=== PATIENT | female | born 1960 | race Caucasian/White ===

== ENCOUNTER 2020-10-16 10:32 | Inpatient (IN) | payer MEDICAID ==
[~2020-10-16] VITALS: Ht 195.6 cm; Wt 111.3 kg
[~2020-10-16 10:32] MED LIST: ACET1TAB12 PO; ALBU2.5V13 NEB; ALBU6.7H9 INH; CLON-527 PO; DOXE25CA3 PO; GABA300C PO; METF1000 PO; OMEP20CA4 PO; ONDA4TAB6 PO; SERT50TA PO
[2020-10-16] MEDS ORDERED: morphine 4 MG/ML inj SYRINge IV ONE (11:20)
[2020-10-16] MEDS ORDERED: normal saline 1000ML IV soln IVB ONE ×2 (11:25→16:40)
[2020-10-16 11:32] LABS: URINE HCG NEGATIVE (NEG)
[2020-10-16 11:34] LABS: CLARITY,URINE CLOUDY (Clear); COLOR,URINE YELLOW (Yellow); GLUCOSE, URINE NEGATIVE (Neg); KETONES,URINE NEGATIVE (Neg); LEUKOCYTE ESTERASE ,URINE TRACE (Neg); NITRITES, URINE NEGATIVE (Neg); OCCULT BLOOD,URINE MODERATE (Neg); PH,URINE 5.5 (4.8-8.0); PROTEIN,URINE 100 mg/dl (Neg); UROBILINOGEN,URINE 0.2 E.U/dL (0.2-1.0)
[2020-10-16 11:37] LABS: UA COLLECTION TYPE VOIDED
[2020-10-16 11:43] LABS: RBC,URINE 0-2 /HPF (0-2); SQUAMOUS EPITHELIAL CELL,UR MANY /LPF (FEW); WBC,URINE 50-100 /HPF (0-4)
[2020-10-16 11:45] LABS: AMORPHOUS URATES 3+; BACTERIA,URINE 1+ /HPF (Neg)
[2020-10-16] MEDS ORDERED: vancomycin/NS 1 GM ADD-VANTAGE 250 ML IV ONE (11:45)
[2020-10-16] MEDS ORDERED: piperacillin/tazo 3.375gm/50ml 50 ML IV ONE (11:45)
--- NOTE | 2020-10-16 12:23 | NUR ---
GABI GOVEA AWARE THAT LAB UNABLE TO DRAW BLOOD AND AND I ATTEMPTED ONE IV START. PATIETN HAS HX OF IVDA AND MULTIPLE SCABBED AND REDDENED AREAS ON ARMS MAINLY AND BODY, HEAD AND BACK IN VARIOUS STAGES OF HEALING. GABI STATED IS IT OK TO HANG ANTIBIOTICS BEFORE BLOOD CULTURES DRAWN. CULTURES WERE DRAWN AT [facility]. PATIENT HAS RIGHT WRIST 22 [facility]
--- NOTE | 2020-10-16 12:39 | NUR ---
SPOKE TO PICC RN, SHE WILL COME AND PLACE A MIDLINE AT THIS TIME
--- NOTE | 2020-10-16 13:11 | NUR ---
CLEANED COPIOUS AMOUNT OF BLOODY APPARENT STOOL FROM ABDOMEN AND UNDERWEAR SOAKED. CLEANED SKIN AROUND STOMA WHICH IS NOW DEEP RED AND PROTRUDING AND STICKING OUT ABOUT 5 CM, HOLE NEAR STOMA LEAKING BLOODY LIQUID, CLEANED ALSO WITH NS, STOMAPASTE APPLIED AROUND BOTH "HOLES" AND OSTOMY BAGS PLACED TO BOTH "HOLES", NO OUTPUT FROM ILEOSTOMY. AREA UNDER STOMA AND HOLE IS EXCORITAED WITH VAIOUS OPEN AREAS, NON STICK APPLIED AND GAUZE ACCROSS MAJORITY OF UPPER BACK IS REDENED AND SWOLLEN AND HARD FEELING WITH ONE VERY LARGE OPEN AREA AND ANOTHER OPEN AREA, XEROFORM APPLIED, NON STICK AND 4 X 4 GAUZE
--- NOTE | 2020-10-16 13:48 | NUR ---
PICC RN PLACING MIDLINE IN ROOM
[2020-10-16 16:06] LABS: BASOPHILS % (AUTO) 0.1 % (0-1); EOSINOPHILS % (AUTO) 0.1 % (0-6); HEMATOCRIT 34.6 % (35.0-45.0); HEMOGLOBIN 11.6 g/dl (12.0-16.0); LYMPHOCYTES # (AUTO) 0.5 X10'3 (1.1-4.8); LYMPHOCYTES % (AUTO) 2.6 % (21-51); MEAN CORPUSCULAR HEMOGLOBIN 30.7 PG (27.0-31.0); MEAN CORPUSCULAR HGB CONC 33.5 g/dL (33.0-36.5); MEAN CORPUSCULAR VOLUME 91.6 FL (78-98); MEAN PLATELET VOLUME 6.5 FL (7.4-10.4); MONOCYTES % (AUTO) 5.2 % (2-12); NEUTROPHILS # (AUTO) 17.8 X10'3 (1.8-7.7); PLATELET COUNT 396 X10'3 (140-440); RED BLOOD COUNT 3.78 X10'6 (4.20-5.60); WHITE BLOOD COUNT 19.3 X10'3 (4.5-11.0)
[2020-10-16 16:26] LABS: ALANINE AMINOTRANSFERASE 20 U/L (12-78); ALBUMIN 1.7 G/DL (3.4-5.0); ALBUMIN/GLOBULIN RATIO 0.3 (1.1-1.5); ALKALINE PHOSPHATASE 167 IU/L (46-116); ANION GAP 21 (8-16); ASPARTATE AMINO TRANSFERASE 37 U/L (10-37); BLOOD UREA NITROGEN 105 MG/DL (7-18); CALCIUM 7.4 MG/DL (8.5-10.1); CHLORIDE 96 MMOL/L (99-107); CREATININE 6.16 MG/DL (0.40-0.90); GLUCOSE 190 MG/DL (70-104); POTASSIUM 4.1 MMOL/L (3.5-5.1); SODIUM 134 MMOL/L (135-145); TOTAL CARBON DIOXIDE 16.6 MMOL/L (24-32); TOTAL PROTEIN 7.5 G/DL (6.4-8.2); eGFR 7 ML/MIN
[2020-10-16] MEDS ORDERED: LIDOcaine 1% W/epiNEPHrine 1:200,000 10ml vial IJ ONE (16:40)
[2020-10-16] MEDS ORDERED: TETanus/Pertussis (Acell)/Diphther VAC/PF (Tdap-Adult) 0.5ml syringe IMVAC ONE (16:40)
--- NOTE | 2020-10-16 16:41 | NUR ---
MACIEL MARTIN [phone] SON UPDATED WITH PATIENT'S PERMISSION
[2020-10-16 17:09] LABS: PLATELET ESTIMATE NORMAL; TOTAL CELLS COUNTED 100
[2020-10-16] MEDS ORDERED: ALBU8HFA PO (17:39)
[2020-10-16] MEDS ORDERED: LORA-268 PO (17:39)
[2020-10-16] MEDS ORDERED: METF-436 PO (17:39)
--- NOTE | 2020-10-16 17:45 | NUR ---
ABSCESSES ON MID/LEFT UPPER BACK DRAINED PER XUAN ASHLEY. TOLERATED PROCEDURE WELL. COPIOUS AMOUNTS OF CREAMY, PUS AND SEROSANGUINOUS DRAINAGE OBTAINED FROM ABSCESSES. CULTURE SENT TO LAB. WOUNDS PACKED WITH IODOFORM GAUZE AND COVERED WITH 4X4 DRESSINGS. TETANUS SHOT GIVEN TO PATIENT. WOUND ON RIGHT BREAST ASSESSED PER NURSE AND GABI GOVEA. WOUND IS CRUSTY AND WITH DARK SCAB AND SCANT AMOUNT OF PURULENT DRAINAGE FROM MIDDLE OF WOUND. LEFT OPEN TO AIR AT THIS TIME.
[2020-10-16] MEDS ORDERED: acetaminophen 325mg tablet PO PRN (18:10)
[2020-10-16] MEDS ORDERED: insulin Lispro (HumaLOG) vial - multi-dose SQ SCH (18:10)
[2020-10-16] MEDS ORDERED: mag hydrox/Alum hydrox/simeth 30ml oral suspension PO PRN (18:10)
[2020-10-16] MEDS ORDERED: docusate sod 100mg capsule PO PRN (18:10)
[2020-10-16] MEDS ORDERED: HYDROcodone/acetaminophen 5mg/325mg tablet PO PRN (18:10)
[2020-10-16] MEDS ORDERED: potassium Cl 20 mEq SR tablet PO PRN ×2 (18:10)
[2020-10-16] MEDS ORDERED: glucagon, human recombinant 1mg kit SUBCUT PRN (18:10)
[2020-10-16] MEDS ORDERED: magnesium 4gm in 100ml NS 100 ML IV PRN (18:10)
[2020-10-16] MEDS ORDERED: magnesium 2GM in 50ml NS 50 ML IV PRN (18:10)
[2020-10-16] MEDS ORDERED: ondansetron/PF 4mg/2ml inj IV PRN (18:10)
[2020-10-16] MEDS ORDERED: dextrose 50%-water 50ml dispensing syringe IV PRN (18:10)
[2020-10-16] MEDS ORDERED: dextrose ORAL solution 15 GM/59 ML bottle PO PRN ×2 (18:10)
[2020-10-16] MEDS ORDERED: MESSAGE TO PHARMACY PO ONE (18:10)
[2020-10-16] MEDS ORDERED: normal saline 1000ml 1,000 ML IV SCH (18:10)
[2020-10-16] MEDS ORDERED: potassium Cl 40MEQ/1/2NS 520ml 520 ML IV PRN (18:10)
[2020-10-16] MEDS ORDERED: ondansetron 4mg rapidly disintigrating tab PO PRN (18:25)
[2020-10-16 19:51] LABS: HEMOGLOBIN A1C 8.2 % (4.5-6.2)
[2020-10-16] MEDS: heparin, porcine 5000 units/ml vial SQ SCH (20:00)
[2020-10-16] MEDS: K and/or MAG REPLACEMENT MC SCH (20:00)
[2020-10-16] MEDS: levoFLOXACIN-Levaquin 250mg/D5 50 ML IV SCH (20:25)
[2020-10-16] MEDS: metroNIDAZOLE-Flagyl 250mg/NS 50 ML IV SCH (20:25)
--- NOTE | 2020-10-16 20:35 | NUR ---
called pharmacy for bicarb gtt
[2020-10-16] MEDS: sodium bicarbonate (8.4%) inj. 100 MEQ in dextrose 5%-water 1,000 ML IV SCH (20:48)
[2020-10-16] MEDS: insulin glargine (Lantus) pen - multi-dose SQ SCH (21:00)
--- NOTE | 2020-10-16 21:14 | NUR ---
PHONE REOPRT TO ANTONINO RN PCU PATIENT TO GO TO 2011A WITH RN ON MONITOR.
--- NOTE | 2020-10-16 21:19 | NUR ---
LANE MUÑIZ AWARE THAT ACCUCHECK NEEDS TO BE DONE. LANE MUÑIZ AWARE THAT WOUND PHOTOS NEED TO BE TAKEN. PATIETN TO PCU WITH ANALISA SHERMAN PATIENT WITH BICARB GTT AT 150 ML/HR TO RIGHT QUAD LUMEN CENTRAL LINE IJ. SL TO RIGHT WRIST ILEOSTOMY BAG WITH NO OUTPUT, HOLE MEDIAL TO ILEOSTOMY OUTPUT OF BLOODY LIQUID STOOL, PATIETN GETS UP TO BSC WITH STANDYBY ASSIST
[2020-10-17 02:00] VITALS: BP 91/42
[2020-10-17] MEDS: sodium bicarbonate (8.4%) inj. 100 MEQ in dextrose 5%-water 1,000 ML IV SCH ×2 (03:44→12:19)
--- NOTE | 2020-10-17 05:51 | NUR ---
REC'D CALL FROM [facility], THEY HAVE POSITIVE BLOOD CULTURE RESULTS OF GRAM + COCCI IN CLUSTER IN ANEROBIC BOTTLE X 2 SETS. MD TA INFORMED Addendum: 10/17/20 at 0555 by Sonia Caldera RN CORRECTION. AEROBIC BOTTLE
--- NOTE | 2020-10-17 06:30 | NUR ---
Patient in room PCU 3011. I have received report from Portillo SHERMAN and had the opportunity to ask questions and assume patient care.
[2020-10-17] MEDS: K and/or MAG REPLACEMENT MC SCH ×2 (08:00→20:00)
[2020-10-17 08:49] LABS: BASOPHILS % (AUTO) 0.1 % (0-1); EOSINOPHILS # (AUTO) 0.1 X10'3 (0-0.9); EOSINOPHILS % (AUTO) 0.4 % (0-6); HEMATOCRIT 30.8 % (35.0-45.0); HEMOGLOBIN 10.5 g/dl (12.0-16.0); LYMPHOCYTES # (AUTO) 0.8 X10'3 (1.1-4.8); LYMPHOCYTES % (AUTO) 4.9 % (21-51); MEAN CORPUSCULAR HEMOGLOBIN 30.9 PG (27.0-31.0); MEAN CORPUSCULAR HGB CONC 34.2 g/dL (33.0-36.5); MEAN CORPUSCULAR VOLUME 90.4 FL (78-98); MEAN PLATELET VOLUME 6.5 FL (7.4-10.4); MONOCYTES # (AUTO) 1.1 X10'3 (0-0.9); MONOCYTES % (AUTO) 6.1 % (2-12); NEUTROPHILS # (AUTO) 15.4 X10'3 (1.8-7.7); NEUTROPHILS % (AUTO) 88.5 % (42-75); PLATELET COUNT 359 X10'3 (140-440); RED BLOOD COUNT 3.41 X10'6 (4.20-5.60); RED CELL DISTRIBUTION WIDTH 15.9 % (11.5-14.5); WHITE BLOOD COUNT 17.3 X10'3 (4.5-11.0)
[2020-10-17] MEDS: metroNIDAZOLE-Flagyl 250mg/NS 50 ML IV SCH ×3 (08:51→23:48)
[2020-10-17] MEDS: heparin, porcine 5000 units/ml vial SQ SCH ×2 (08:51→20:43)
--- NOTE | 2020-10-17 09:15 | NUR ---
Received critical from micro... Positive blood cultures taken on 10/16, grew positive cocci in clusters from IV start at 17.76 hours in an aerobic bottle. LANE Nath notified.
--- NOTE | 2020-10-17 09:27 | NUR ---
PAGER ID: [phone] MESSAGE: re pt Ted, room 3011, U, lEisa SHERMAN, critical lab blood CX positive , COCCI, in cluster. Aerobic 17.7 hrs. she is on Flagyl. Also, the pt was confused this morning new onset.
--- NOTE | 2020-10-17 09:32 | NUR ---
Dr Mitchell returned page and critical lab noted. AMS also noted. No NO new orders received.
[2020-10-17 09:44] VITALS: BP 107/47
[2020-10-17 09:44] LABS: ALANINE AMINOTRANSFERASE 19 U/L (12-78); ALBUMIN 1.5 G/DL (3.4-5.0); ALBUMIN/GLOBULIN RATIO 0.3 (1.1-1.5); ANION GAP 16 (8-16); ASPARTATE AMINO TRANSFERASE 30 U/L (10-37); BILIRUBIN,TOTAL 0.8 MG/DL (0.1-1.0); BLOOD UREA NITROGEN 102 MG/DL (7-18); CALCIUM 6.6 MG/DL (8.5-10.1); CHLORIDE 92 MMOL/L (99-107); GLUCOSE 213 MG/DL (70-104); MAGNESIUM 1.7 MG/DL (1.5-2.4); POTASSIUM 3.9 MMOL/L (3.5-5.1); SODIUM 126 MMOL/L (135-145); TOTAL CARBON DIOXIDE 18.4 MMOL/L (24-32); TOTAL PROTEIN 6.9 G/DL (6.4-8.2)
[2020-10-17 09:46] LABS: PLATELET ESTIMATE NORMAL; TOTAL CELLS COUNTED 100
[2020-10-17 09:48] LABS: BUN/CREATININE RATIO 17.5 (6.6-38.0); CREATININE 5.83 MG/DL (0.40-0.90); eGFR 7 ML/MIN
[2020-10-17 11:16] LABS: ALKALINE PHOSPHATASE 151 IU/L (46-116)
[2020-10-17] MEDS: linezolid 600mg tablet PO SCH ×2 (12:19→20:43)
--- NOTE | 2020-10-17 12:28 | NUR ---
Attepted in ED 10/16/20 to establish IV access to Right arm using shayleetasopierce cobb. Ilene SHERMAN notified. Addendum: 10/17/20 at 1231 by Yokasta Weeks RN *Attempted without success.
--- NOTE | 2020-10-17 12:50 | NUR ---
RN informs Dr Hanks about Pt Sodium was 126 and Pt still on D5 with bicarb at 150 ml/hr. orders d5 with 3 amps of bicarb at 150 ml/hr and order for neal catheter. RN mentioned dr Enrique instructions for no Neal. Dr Mccormick makes note of that, and still wants Neal with UA.
[2020-10-17 13:18] VITALS: BP 97/49
--- NOTE | 2020-10-17 14:56 | NUR ---
Pt with A1c 8.2%, multiple attempted visits with pt at bedside however pt unavailable. Written DM education with RD contact information left at bedside. Noted pt with Metformin on home med list however per H&P pt has not been to a doctor in years and has not take any DM medications. BG 190 mg/dL on admit. Will attempt f/u visit with pt at another time for verbal DM education. 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 Per ecommerce marketing manager note acute renal failure/GLENROY probably due to prerenal azotemia from copious ileostomy output. No documentation of stool output since admit. Per WOC note pt with full thickness abscess L upper back and traumatic injury R breast, partial thickness traumatic injury to forehead, and IAD to pannus. Pt on a heart healthy CHO controlled diet, documented with 100% PO intake first meal. No nutrition intervention implemented at this time. Will continue to follow. Recommendations: 1) Continue heart healthy CHO controlled diet 2) Bowel care per rx 3) Scaled weight this admit; weekly scaled weights thereafter 4) F/u verbal DM education once stable Addendum: 10/17/20 at [address] Amended: Links added.
[2020-10-17 15:49] VITALS: BP 103/56
[2020-10-17] MEDS ORDERED: vancomycin/NS 1 GM ADD-VANTAGE 250 ML IV PRN (15:55)
[2020-10-17 16:11] LABS: SODIUM,URINE RANDOM < 15 MEQ/L; TOTAL PROTEIN,URINE RANDOM 131.8 MG/DL
[2020-10-17] MEDS: sodium bicarbonate (8.4%) inj. 150 MEQ in dextrose 5%-water 1,000 ML IV SCH (16:22)
[2020-10-17 16:27] LABS: CLARITY,URINE CLOUDY (Clear); COLOR,URINE YELLOW (Yellow); GLUCOSE, URINE NEGATIVE (Neg); KETONES,URINE NEGATIVE (Neg); PH,URINE 5.5 (4.8-8.0); PROTEIN,URINE 30 mg/dl (Neg); UA COLLECTION TYPE FOLEY CATH
[2020-10-17 16:28] LABS: LEUKOCYTE ESTERASE ,URINE SMALL (Neg); NITRITES, URINE NEGATIVE (Neg); OCCULT BLOOD,URINE SMALL (Neg); UROBILINOGEN,URINE 0.2 E.U/dL (0.2-1.0)
[2020-10-17 16:29] LABS: SQUAMOUS EPITHELIAL CELL,UR MANY /LPF (FEW); WBC,URINE 20-30 /HPF (0-4)
[2020-10-17 16:30] LABS: BACTERIA,URINE 2+ /HPF (Neg); RBC,URINE 0-2 /HPF (0-2)
[2020-10-17 16:31] LABS: CELLULAR CAST 0-4 /LPF (NEGATIVE)
[2020-10-17 16:52] LABS: UA EOSINOPHILS RARE EOS /HPF
[2020-10-17 18:00] VITALS: BP 120/56
[2020-10-17] MEDS: Dakins solution (1/4 strength) 473ml solution TP SCH (20:00)
[2020-10-17] MEDS: lactobacillus rhamnosus 10,000 MMU CELLS/CAPSULE PO SCH (20:42)
[2020-10-17] MEDS: diatr meglu/diatrizoate 30ml oral sol.-(3 dose) bottle PO SCH (20:43)
[2020-10-17] MEDS: insulin glargine (Lantus) pen - multi-dose SQ SCH (21:00)
[2020-10-17 22:00] VITALS: BP 91/53
[2020-10-17] MEDS: LORazepam 0.5 MG tablet PO PRN (23:49)
[2020-10-18 02:00] VITALS: BP 103/53
[2020-10-18] MEDS ORDERED: VANCOMYCIN LEVEL IV SCH (03:00)
[2020-10-18] MEDS: sodium bicarbonate (8.4%) inj. 150 MEQ in dextrose 5%-water 1,000 ML IV SCH (03:31)
[2020-10-18 06:00] VITALS: BP 118/57
--- NOTE | 2020-10-18 06:12 | NUR ---
Problems reprioritized. Patient report given, questions answered & plan of care reviewed with Matthew SHERMAN.
--- NOTE | 2020-10-18 06:15 | NUR ---
Patient in room PCU 3011. I have received report from Marianna SHERMAN and had the opportunity to ask questions and assume patient care.
--- NOTE | 2020-10-18 06:20 | NUR ---
Problems reprioritized. Patient report given, questions answered & plan of care reviewed with Wan SHERMAN.
[2020-10-18] MEDS: diatr meglu/diatrizoate 30ml oral sol.-(3 dose) bottle PO SCH ×2 (07:00→10:30)
[2020-10-18 07:26] LABS: BASOPHILS % (AUTO) 0.1 % (0-1); EOSINOPHILS # (AUTO) 0.1 X10'3 (0-0.9); EOSINOPHILS % (AUTO) 0.9 % (0-6); HEMATOCRIT 27.8 % (35.0-45.0); HEMOGLOBIN 9.5 g/dl (12.0-16.0); LYMPHOCYTES # (AUTO) 0.9 X10'3 (1.1-4.8); LYMPHOCYTES % (AUTO) 7.7 % (21-51); MEAN CORPUSCULAR HEMOGLOBIN 30.6 PG (27.0-31.0); MEAN CORPUSCULAR HGB CONC 34.1 g/dL (33.0-36.5); MEAN CORPUSCULAR VOLUME 89.9 FL (78-98); MEAN PLATELET VOLUME 6.3 FL (7.4-10.4); MONOCYTES # (AUTO) 0.7 X10'3 (0-0.9); MONOCYTES % (AUTO) 6.4 % (2-12); NEUTROPHILS # (AUTO) 9.9 X10'3 (1.8-7.7); NEUTROPHILS % (AUTO) 84.9 % (42-75); PLATELET COUNT 282 X10'3 (140-440); RED BLOOD COUNT 3.09 X10'6 (4.20-5.60); RED CELL DISTRIBUTION WIDTH 15.6 % (11.5-14.5); WHITE BLOOD COUNT 11.6 X10'3 (4.5-11.0)
[2020-10-18] MEDS: levoFLOXACIN-Levaquin 250mg/D5 50 ML IV SCH (07:33)
[2020-10-18] MEDS: heparin, porcine 5000 units/ml vial SQ SCH ×2 (07:37→20:02)
[2020-10-18] MEDS: Dakins solution (1/4 strength) 473ml solution TP SCH ×2 (08:00→20:02)
[2020-10-18] MEDS: K and/or MAG REPLACEMENT MC SCH ×2 (08:00→19:56)
[2020-10-18 08:19] LABS: ALANINE AMINOTRANSFERASE 15 U/L (12-78); ALBUMIN 1.3 G/DL (3.4-5.0); ALBUMIN/GLOBULIN RATIO 0.3 (1.1-1.5); ALKALINE PHOSPHATASE 111 IU/L (46-116); ANION GAP 14 (8-16); ASPARTATE AMINO TRANSFERASE 20 U/L (10-37); BILIRUBIN,TOTAL 0.5 MG/DL (0.1-1.0); BLOOD UREA NITROGEN 90 MG/DL (7-18); BUN/CREATININE RATIO 20.5 (6.6-38.0); CHLORIDE 88 MMOL/L (99-107); CREATININE 4.38 MG/DL (0.40-0.90); GLUCOSE 189 MG/DL (70-104); MAGNESIUM 1.7 MG/DL (1.5-2.4); SODIUM 129 MMOL/L (135-145); TOTAL CARBON DIOXIDE 27.1 MMOL/L (24-32); TOTAL PROTEIN 6.2 G/DL (6.4-8.2); VANCOMYCIN,RANDOM 10.5 UG/ML; eGFR 10 ML/MIN
[2020-10-18 08:26] LABS: POTASSIUM 2.7 MMOL/L (3.5-5.1)
[2020-10-18] MEDS: metoclopramide 5 mg/ml inj IV PRN ×2 (09:15→19:53)
[2020-10-18] MEDS: metroNIDAZOLE-Flagyl 250mg/NS 50 ML IV SCH ×2 (09:16→16:14)
[2020-10-18] MEDS: morphine 2 MG/ML inj. syringe IV PRN (09:16)
[2020-10-18] MEDS: normal saline 1000ml 1,000 ML IV SCH ×3 (09:53→23:00)
[2020-10-18] MEDS: potassium Cl 40MEQ/1/2NS 520ml 520 ML IV PRN (10:08)
[2020-10-18 11:00] VITALS: BP 116/66
[2020-10-18 11:03] LABS: TOTAL CELLS COUNTED 100
[2020-10-18 11:04] LABS: PLATELET ESTIMATE NORMAL; POLYCHROMASIA FEW
[2020-10-18 11:05] LABS: TOXIC GRANULATION 1+
[2020-10-18] MEDS: linezolid 600mg tablet PO SCH ×2 (11:23→20:01)
[2020-10-18] MEDS: lactobacillus rhamnosus 10,000 MMU CELLS/CAPSULE PO SCH ×2 (11:23→20:01)
--- NOTE | 2020-10-18 12:23 | NUR ---
F/u: Physical assessment completed, pt documented as A/O x 1 and confused. Will defer f/u verbal DM education until pt more stable. Noted pt started on Zyvox, pt would benefit from low tyramine nutrition therapy education once stable. Will continue to follow closely. Addendum: 10/18/20 at [address] Amended: Links added.
[2020-10-18] MEDS: ondansetron/PF 4mg/2ml inj IV PRN ×2 (14:25→19:53)
[2020-10-18 15:00] VITALS: BP 100/55
[2020-10-18 18:00] VITALS: BP 95/55
[2020-10-18] MEDS ORDERED: potassium Cl 10 mEq/100mL bag IV ONE (19:15)
[2020-10-18] MEDS: insulin glargine (Lantus) pen - multi-dose SQ SCH (21:00)
[2020-10-18 22:00] VITALS: BP 127/71
[2020-10-19] MEDS: metroNIDAZOLE-Flagyl 250mg/NS 50 ML IV SCH (00:09)
[2020-10-19 02:00] VITALS: BP 121/67
[2020-10-19] MEDS: ondansetron/PF 4mg/2ml inj IV PRN (02:21)
[2020-10-19] MEDS: morphine 2 MG/ML inj. syringe IV PRN ×3 (03:02→23:22)
[2020-10-19 03:38] LABS: BASOPHILS % (AUTO) 0.4 % (0-1); EOSINOPHILS % (AUTO) 0.2 % (0-6); HEMATOCRIT 29.4 % (35.0-45.0); LYMPHOCYTES # (AUTO) 0.6 X10'3 (1.1-4.8); LYMPHOCYTES % (AUTO) 5.3 % (21-51); MEAN CORPUSCULAR HEMOGLOBIN 30.6 PG (27.0-31.0); MEAN CORPUSCULAR HGB CONC 34.1 g/dL (33.0-36.5); MEAN CORPUSCULAR VOLUME 89.7 FL (78-98); MEAN PLATELET VOLUME 6.2 FL (7.4-10.4); MONOCYTES # (AUTO) 0.9 X10'3 (0-0.9); MONOCYTES % (AUTO) 8.1 % (2-12); NEUTROPHILS # (AUTO) 9.8 X10'3 (1.8-7.7); PLATELET COUNT 301 X10'3 (140-440); RED BLOOD COUNT 3.28 X10'6 (4.20-5.60); RED CELL DISTRIBUTION WIDTH 15.7 % (11.5-14.5); WHITE BLOOD COUNT 11.4 X10'3 (4.5-11.0)
[2020-10-19 03:53] LABS: ALANINE AMINOTRANSFERASE 14 U/L (12-78); ALBUMIN 1.4 G/DL (3.4-5.0); ALBUMIN/GLOBULIN RATIO 0.3 (1.1-1.5); ALKALINE PHOSPHATASE 117 IU/L (46-116); ANION GAP 11 (8-16); ASPARTATE AMINO TRANSFERASE 16 U/L (10-37); BILIRUBIN,TOTAL 0.5 MG/DL (0.1-1.0); BLOOD UREA NITROGEN 73 MG/DL (7-18); BUN/CREATININE RATIO 23.5 (6.6-38.0); CALCIUM 6.2 MG/DL (8.5-10.1); CHLORIDE 95 MMOL/L (99-107); GLUCOSE 154 MG/DL (70-104); MAGNESIUM 1.6 MG/DL (1.5-2.4); POTASSIUM 3.4 MMOL/L (3.5-5.1); SODIUM 135 MMOL/L (135-145); TOTAL CARBON DIOXIDE 28.6 MMOL/L (24-32); TOTAL PROTEIN 6.5 G/DL (6.4-8.2); eGFR 15 ML/MIN
[2020-10-19] MEDS: normal saline 1000ml 1,000 ML IV SCH (05:40)
--- NOTE | 2020-10-19 06:05 | NUR ---
Patient in room PCU 3011. I have received report from Wan SHERMAN and had the opportunity to ask questions and assume patient care.
--- NOTE | 2020-10-19 06:22 | NUR ---
Patient in room PCU 3011. I have received report from LANE Pierce and had the opportunity to ask questions and assume patient care.
[2020-10-19 06:39] LABS: ANISOCYTOSIS 1+; PLATELET ESTIMATE NORMAL; TOTAL CELLS COUNTED 100
[2020-10-19 07:00] VITALS: BP 111/67
--- NOTE | 2020-10-19 07:02 | NUR ---
PAGER ID: [phone] MESSAGE: [phone] al Jean blood cultures positive for MRSA
[2020-10-19] MEDS: heparin, porcine 5000 units/ml vial SQ SCH ×2 (07:24→19:29)
[2020-10-19] MEDS: lactobacillus rhamnosus 10,000 MMU CELLS/CAPSULE PO SCH ×3 (07:24→19:35)
[2020-10-19] MEDS: Dakins solution (1/4 strength) 473ml solution TP SCH ×2 (08:00→19:29)
[2020-10-19] MEDS: K and/or MAG REPLACEMENT MC SCH ×2 (08:00→19:17)
[2020-10-19] MEDS: clindamycin 600mg/D5W 50ml 50 ML IV SCH ×3 (09:29→23:21)
[2020-10-19] MEDS: potassium Cl 40MEQ/1/2NS 520ml 520 ML IV PRN (09:32)
[2020-10-19 12:34] VITALS: BP 150/101
[2020-10-19 15:00] VITALS: BP 135/78
[2020-10-19 18:00] VITALS: BP 130/73
--- NOTE | 2020-10-19 18:00 | NUR ---
Orientee documentation: I have reviewed and agree with all interventions, assessments performed and documented by Elisa SHERMAN.
--- NOTE | 2020-10-19 18:00 | NUR ---
Patient in room PCU 3011. I have received report from anastasiia hunt and had the opportunity to ask questions and assume patient care.
--- NOTE | 2020-10-19 18:00 | NUR ---
Patient in room PCU 3011. I have received report from anastasiia hunt and had the opportunity to ask questions and assume patient care.
--- NOTE | 2020-10-19 18:05 | NUR ---
Problems reprioritized. Patient report given, questions answered & plan of care reviewed with Mj SHERMAN.
--- NOTE | 2020-10-19 19:17 | NUR ---
potassium replaced by previous shift
[2020-10-19] MEDS: insulin glargine (Lantus) pen - multi-dose SQ SCH (21:00)
[2020-10-19 22:00] VITALS: BP 132/76
--- NOTE | 2020-10-19 23:55 | NUR ---
performed wound care and neal care on pt.
--- NOTE | 2020-10-20 00:34 | NUR ---
pt was asleep when it was time to come and reassess them
--- NOTE | 2020-10-20 01:16 | NUR ---
no order in for urinary cath placed. according to the notes it was ordered by Dr. Hanks to monitor urine and to assess i/o. neal care was completed this evening. will pass onto day rn
[2020-10-20 01:43] VITALS: BP 142/75
--- NOTE | 2020-10-20 02:02 | NUR ---
called dr james to see if it rajan be possible to get something for anxiety for the pt iv. ordered ativan iv same dose at po
--- NOTE | 2020-10-20 02:25 | NUR ---
put in order for iv ativan, when I went in to see pt, pt was asleep. will keep med prn
[2020-10-20 02:44] LABS: BASOPHILS % (AUTO) 0.1 % (0-1); EOSINOPHILS % (AUTO) 0.3 % (0-6); HEMATOCRIT 29.5 % (35.0-45.0); HEMOGLOBIN 10.1 g/dl (12.0-16.0); LYMPHOCYTES # (AUTO) 0.8 X10'3 (1.1-4.8); MEAN CORPUSCULAR HEMOGLOBIN 30.7 PG (27.0-31.0); MEAN CORPUSCULAR HGB CONC 34.3 g/dL (33.0-36.5); MEAN CORPUSCULAR VOLUME 89.4 FL (78-98); MEAN PLATELET VOLUME 6.3 FL (7.4-10.4); MONOCYTES # (AUTO) 0.7 X10'3 (0-0.9); MONOCYTES % (AUTO) 7.7 % (2-12); NEUTROPHILS # (AUTO) 8.1 X10'3 (1.8-7.7); NEUTROPHILS % (AUTO) 83.9 % (42-75); PLATELET COUNT 275 X10'3 (140-440); RED CELL DISTRIBUTION WIDTH 15.7 % (11.5-14.5); WHITE BLOOD COUNT 9.6 X10'3 (4.5-11.0)
[2020-10-20 02:46] LABS: ALANINE AMINOTRANSFERASE 12 U/L (12-78); ALBUMIN 1.4 G/DL (3.4-5.0); ALBUMIN/GLOBULIN RATIO 0.3 (1.1-1.5); ALKALINE PHOSPHATASE 124 IU/L (46-116); ANION GAP 7 (8-16); ASPARTATE AMINO TRANSFERASE 14 U/L (10-37); BILIRUBIN,TOTAL 0.5 MG/DL (0.1-1.0); BLOOD UREA NITROGEN 58 MG/DL (7-18); BUN/CREATININE RATIO 26.4 (6.6-38.0); CALCIUM 6.4 MG/DL (8.5-10.1); CHLORIDE 95 MMOL/L (99-107); GLUCOSE 145 MG/DL (70-104); MAGNESIUM 1.5 MG/DL (1.5-2.4); SODIUM 137 MMOL/L (135-145); TOTAL CARBON DIOXIDE 34.9 MMOL/L (24-32); TOTAL PROTEIN 6.4 G/DL (6.4-8.2); eGFR 23 ML/MIN
[2020-10-20 02:52] LABS: POTASSIUM 2.9 MMOL/L (3.5-5.1)
[2020-10-20] MEDS ORDERED: potassium Cl 20 mEq SR tablet PO PRN (03:10)
[2020-10-20] MEDS ORDERED: potassium Cl 40MEQ/1/2NS 520ml 520 ML IV PRN (03:10)
[2020-10-20 03:37] LABS: TOTAL CELLS COUNTED 100
[2020-10-20 03:38] LABS: ANISOCYTOSIS 1+; PLATELET ESTIMATE NORMAL
--- NOTE | 2020-10-20 06:19 | NUR ---
Problems reprioritized. Patient report given, questions answered & plan of care reviewed with Joyce SHERMAN.
--- NOTE | 2020-10-20 06:30 | NUR ---
Report received from Mj SHERMAN
[2020-10-20 07:00] VITALS: BP 152/81
[2020-10-20] MEDS: lactobacillus rhamnosus 10,000 MMU CELLS/CAPSULE PO SCH ×2 (08:00→20:00)
[2020-10-20] MEDS: K and/or MAG REPLACEMENT MC SCH ×2 (08:00→20:00)
[2020-10-20] MEDS ORDERED: K and/or MAG REPLACEMENT MC SCH (08:00)
[2020-10-20] MEDS: heparin, porcine 5000 units/ml vial SQ SCH ×2 (08:05→20:00)
--- NOTE | 2020-10-20 09:54 | NUR ---
Reassessment: Pt remains A/O x 1 and confused per physical assessment. Educations remain deferred at this time. Noted that pt no longer receiving Zyvox. Pt continues with active diet order however documented by RN to be NPO. Pt with N/V 10/18 resulting in NG tube placement, documented with 1150 mL output from NG tube 10/19 per I&O. LBM 10/19. Will continue to follow closely and make recommendations as appropriate. Recommendations: 1) Advance to heart healthy CHO controlled diet as medically indicated 2) Bowel care per rx 3) Scaled weight this admit; weekly scaled weights thereafter 4) F/u verbal DM education and protein education once stable Addendum: 10/20/20 at [address] Amended: Links added.
[2020-10-20] MEDS: clindamycin 600mg/D5W 50ml 50 ML IV SCH ×2 (10:34→17:38)
[2020-10-20] MEDS: Dakins solution (1/4 strength) 473ml solution TP SCH ×2 (10:36→20:00)
[2020-10-20 11:00] VITALS: BP 152/89
--- NOTE | 2020-10-20 14:16 | NUR ---
Changed ostomy bag on patient. Output 160cc liquid in ostomy bag and 50cc in fistula bag - liquid with some formed stool present. Dressing changed on left upper back as per protocol.
[2020-10-20 15:00] VITALS: BP 158/87
--- NOTE | 2020-10-20 17:13 | NUR ---
PAGER ID: [phone] MESSAGE: [phone] al Jean. NG still clamped, tolerating liquids well, no N/V or ab pain. Good output in ileostomy still. - Joyce
[2020-10-20] MEDS: normal saline 1000ml 1,000 ML IV SCH (17:38)
--- NOTE | 2020-10-20 17:44 | NUR ---
PAGER ID: [phone] MESSAGE: [phone] Ted- Good output ileostomy bag. No c/o nausea. Take out NG? Fátima SHERMAN [phone]
[2020-10-20 18:00] VITALS: BP 130/97
--- NOTE | 2020-10-20 18:17 | NUR ---
Patient in room PCU 3011. I have received report from Joyce SHERMAN and Fátima SHERMAN and had the opportunity to ask questions and assume patient care.
[2020-10-20] MEDS: insulin glargine (Lantus) pen - multi-dose SQ SCH (21:00)
[2020-10-20 22:00] VITALS: BP 152/76
[2020-10-20] MEDS: LORazepam 2 mg/ml vial IV PRN (23:14)
[2020-10-21] MEDS: normal saline 1000ml 1,000 ML IV SCH ×2 (00:05→13:25)
[2020-10-21] MEDS: HYDROcodone/acetaminophen 10/325mg tab PO PRN (01:56)
[2020-10-21 02:00] VITALS: BP 152/75
[2020-10-21] MEDS: clindamycin 600mg/D5W 50ml 50 ML IV SCH ×3 (02:07→15:25)
--- NOTE | 2020-10-21 06:22 | NUR ---
Patient in room PCU 3011. I have received report from Jane SHERMAN and had the opportunity to ask questions and assume patient care.
[2020-10-21 07:00] VITALS: BP 141/66
--- NOTE | 2020-10-21 07:00 | NUR ---
Patient in room PCU 3011. I have received report from Jane SHERMAN and had the opportunity to ask questions and assume patient care.
--- NOTE | 2020-10-21 07:57 | NUR ---
Problems reprioritized. Patient report given, questions answered & plan of care reviewed with Bárbara SHERMAN.
[2020-10-21] MEDS: K and/or MAG REPLACEMENT MC SCH ×2 (08:00→20:00)
[2020-10-21] MEDS: heparin, porcine 5000 units/ml vial SQ SCH ×2 (08:49→15:00)
[2020-10-21] MEDS: Dakins solution (1/4 strength) 473ml solution TP SCH ×2 (08:49→20:00)
[2020-10-21] MEDS: lactobacillus rhamnosus 10,000 MMU CELLS/CAPSULE PO SCH ×2 (08:49→20:00)
[2020-10-21 10:07] LABS: BASOPHILS % (AUTO) 0.1 % (0-1); EOSINOPHILS % (AUTO) 0.3 % (0-6); HEMATOCRIT 32.9 % (35.0-45.0); HEMOGLOBIN 11.2 g/dl (12.0-16.0); LYMPHOCYTES # (AUTO) 0.9 X10'3 (1.1-4.8); LYMPHOCYTES % (AUTO) 8.2 % (21-51); MEAN CORPUSCULAR HEMOGLOBIN 30.5 PG (27.0-31.0); MEAN CORPUSCULAR HGB CONC 34.1 g/dL (33.0-36.5); MEAN CORPUSCULAR VOLUME 89.7 FL (78-98); MEAN PLATELET VOLUME 6.4 FL (7.4-10.4); MONOCYTES # (AUTO) 0.8 X10'3 (0-0.9); MONOCYTES % (AUTO) 6.8 % (2-12); NEUTROPHILS # (AUTO) 9.6 X10'3 (1.8-7.7); NEUTROPHILS % (AUTO) 84.6 % (42-75); PLATELET COUNT 251 X10'3 (140-440); RED BLOOD COUNT 3.66 X10'6 (4.20-5.60); RED CELL DISTRIBUTION WIDTH 15.7 % (11.5-14.5); WHITE BLOOD COUNT 11.4 X10'3 (4.5-11.0)
[2020-10-21 10:22] LABS: ALANINE AMINOTRANSFERASE 11 U/L (12-78); ALBUMIN 1.6 G/DL (3.4-5.0); ALBUMIN/GLOBULIN RATIO 0.3 (1.1-1.5); ALKALINE PHOSPHATASE 164 IU/L (46-116); ANION GAP 7 (8-16); ASPARTATE AMINO TRANSFERASE 18 U/L (10-37); BILIRUBIN,TOTAL 0.5 MG/DL (0.1-1.0); BLOOD UREA NITROGEN 31 MG/DL (7-18); BUN/CREATININE RATIO 22.6 (6.6-38.0); CALCIUM 6.6 MG/DL (8.5-10.1); CHLORIDE 94 MMOL/L (99-107); CREATININE 1.37 MG/DL (0.40-0.90); GLUCOSE 204 MG/DL (70-104); MAGNESIUM 1.1 MG/DL (1.5-2.4); SODIUM 135 MMOL/L (135-145); TOTAL CARBON DIOXIDE 33.9 MMOL/L (24-32); TOTAL PROTEIN 6.4 G/DL (6.4-8.2); eGFR 39 ML/MIN
[2020-10-21 10:24] LABS: POTASSIUM 2.9 MMOL/L (3.5-5.1)
--- NOTE | 2020-10-21 10:40 | NUR ---
. [facility] PAGER ID: [phone] MESSAGE: Pedro BENAVIDES Ext [phone]. Pt Ian Jean [id number]. Critical Lab result K+ 2.9. Will replace per protocol.
[2020-10-21] MEDS: potassium Cl 20 mEq SR tablet PO PRN ×2 (10:53→15:31)
[2020-10-21 11:00] VITALS: BP 149/76
[2020-10-21 15:00] VITALS: BP 155/74
--- NOTE | 2020-10-21 18:12 | NUR ---
Orientee documentation: I have reviewed and agree with all interventions, assessments performed and documented by Pedro SHERMAN.
--- NOTE | 2020-10-21 18:13 | NUR ---
Orientee Medication Administration: For this medication-pass time frame, all medication were reviewed, dispensed, administered and documented per hospital policy by Pedro SHERMAN.
--- NOTE | 2020-10-21 18:14 | NUR ---
Problems reprioritized. Patient report given, questions answered & plan of care reviewed with Pedro RN.
--- NOTE | 2020-10-21 18:19 | NUR ---
Workload prevented from taking wound pics today, NOC nurse aware, will attempt to take in AM
--- NOTE | 2020-10-21 18:20 | NUR ---
Problems reprioritized. Patient report given, questions answered & plan of care reviewed with Pattie SHERMAN.
[2020-10-21 19:00] VITALS: BP 136/85
[2020-10-21] MEDS: insulin glargine (Lantus) pen - multi-dose SQ SCH (21:00)
[2020-10-21 23:00] VITALS: BP 128/68
[2020-10-22] VITALS (8 sets, daily range): BP systolic 101–150; BP diastolic 68–88
[2020-10-22] MEDS: clindamycin 600mg/D5W 50ml 50 ML IV SCH ×3 (00:56→16:29)
[2020-10-22] MEDS: LORazepam 0.5 MG tablet PO PRN (01:36)
[2020-10-22] MEDS: normal saline 1000ml 1,000 ML IV SCH ×2 (02:45→11:30)
[2020-10-22] MEDS: potassium Cl 20 mEq SR tablet PO PRN (04:00)
--- NOTE | 2020-10-22 07:10 | NUR ---
Patient in room PCU 3011. I have received report from Pattie SHERMAN and had the opportunity to ask questions and assume patient care.
[2020-10-22] MEDS: K and/or MAG REPLACEMENT MC SCH ×2 (08:00→20:00)
[2020-10-22] MEDS: heparin, porcine 5000 units/ml vial SQ SCH ×2 (08:00→20:00)
[2020-10-22] MEDS: lactobacillus rhamnosus 10,000 MMU CELLS/CAPSULE PO SCH ×2 (09:02→20:00)
[2020-10-22] MEDS: Dakins solution (1/4 strength) 473ml solution TP SCH ×2 (09:05→20:00)
--- NOTE | 2020-10-22 11:04 | NUR ---
Phone call from Jamia SHERMAN from [facility] in [place], [place], states pt's UA and blood cultures from 10/16/[address] solorio Will continue to monitor.
--- NOTE | 2020-10-22 11:09 | NUR ---
PAGER ID: [phone] MESSAGE: re: [phone], Ian Jean Phone call from [facility] Jamia SHERMAN ([phone]) states pt's UA and blood cultures drawn 10/16/20 grew MRSA. Thank you, Priti [phone]
--- NOTE | 2020-10-22 11:50 | NUR ---
Pt has been pulling off both stoma appliances (has x2 sites) repeatedly and was observed eating candy and chocolate despite education and reeducation to leave lines and appliances in place and NPO status and verbalizing understanding. MD aware. map colorer aware. Will continue to monitor.
[2020-10-22 12:11] LABS: BASOPHILS % (AUTO) 0.1 % (0-1); EOSINOPHILS % (AUTO) 0.3 % (0-6); HEMATOCRIT 35.4 % (35.0-45.0); HEMOGLOBIN 11.9 g/dl (12.0-16.0); LYMPHOCYTES # (AUTO) 1.4 X10'3 (1.1-4.8); LYMPHOCYTES % (AUTO) 9.6 % (21-51); MEAN CORPUSCULAR HEMOGLOBIN 30.2 PG (27.0-31.0); MEAN CORPUSCULAR HGB CONC 33.6 g/dL (33.0-36.5); MEAN CORPUSCULAR VOLUME 89.9 FL (78-98); MEAN PLATELET VOLUME 6.2 FL (7.4-10.4); NEUTROPHILS # (AUTO) 12.2 X10'3 (1.8-7.7); PLATELET COUNT 242 X10'3 (140-440); RED BLOOD COUNT 3.94 X10'6 (4.20-5.60); RED CELL DISTRIBUTION WIDTH 15.4 % (11.5-14.5); WHITE BLOOD COUNT 14.7 X10'3 (4.5-11.0)
[2020-10-22 12:28] LABS: ALBUMIN 1.8 G/DL (3.4-5.0); ANION GAP 7 (8-16); BLOOD UREA NITROGEN 25 MG/DL (7-18); BUN/CREATININE RATIO 17.7 (6.6-38.0); CHLORIDE 96 MMOL/L (99-107); CREATININE 1.41 MG/DL (0.40-0.90); GLUCOSE 200 MG/DL (70-104); POTASSIUM 3.8 MMOL/L (3.5-5.1); SODIUM 135 MMOL/L (135-145); TOTAL CARBON DIOXIDE 32.1 MMOL/L (24-32); eGFR 38 ML/MIN
--- NOTE | 2020-10-22 16:19 | NUR ---
PAGER ID: [phone] MESSAGE: re: Room 3011, Ian Jean please call re: pt's NPO status, Mg+ was 1.1, would you like replaced? IV? PO? ok to give [place]? Thank you, Priti [phone] Will continue to monitor.
--- NOTE | 2020-10-22 16:19 | NUR ---
Changed x2 stoma appliances, copious leakage despite skin prep and paste and tape used. Will continue to monitor.Spoke with Wound Care earlier, no additional information given for keeping stoma appliances adhered.
--- NOTE | 2020-10-22 16:24 | NUR ---
phone call from Dr Cortez, had stated to keep pt NPO earlier today but states pt may now eat, CC diet. Will continue to monitor. Addendum: 10/22/20 at 1632 by Salima Carmona RN had another call and was unable to answer Mag replacement orders at this time. Will try again.
[2020-10-22] MEDS ORDERED: potassium Cl 40MEQ/1/2NS 520ml 520 ML IV PRN (17:00)
[2020-10-22] MEDS ORDERED: magnesium 4gm in 100ml NS 100 ML IV PRN (17:00)
[2020-10-22] MEDS ORDERED: potassium Cl 20 mEq SR tablet PO PRN ×2 (17:00)
--- NOTE | 2020-10-22 18:15 | NUR ---
Problems reprioritized. Patient report given, questions answered & plan of care reviewed with Pattie SHERMAN.
[2020-10-22] MEDS: magnesium Cl slow-release 64mg tablet PO PRN (18:30)
[2020-10-22] MEDS: insulin glargine (Lantus) pen - multi-dose SQ SCH (21:00)
[2020-10-23] MEDS: clindamycin 600mg/D5W 50ml 50 ML IV SCH ×4 (00:07→23:36)
[2020-10-23] MEDS: LORazepam 0.5 MG tablet PO PRN (00:09)
[2020-10-23] MEDS: ondansetron/PF 4mg/2ml inj IV PRN (00:09)
[2020-10-23] MEDS: HYDROcodone/acetaminophen 10/325mg tab PO PRN (02:14)
[2020-10-23 03:00] VITALS: BP 132/78
[2020-10-23 05:56] LABS: MAGNESIUM 1.2 MG/DL (1.5-2.4); POTASSIUM 3.5 MMOL/L (3.5-5.1)
[2020-10-23 06:00] VITALS: BP 112/75
--- NOTE | 2020-10-23 07:01 | NUR ---
Patient in room PCU 3011. I have received report from Pattie SHERMAN and had the opportunity to ask questions and assume patient care.
[2020-10-23] MEDS: Dakins solution (1/4 strength) 473ml solution TP SCH ×2 (08:00→20:10)
[2020-10-23] MEDS: normal saline 1000ml 1,000 ML IV SCH ×2 (08:54→20:09)
[2020-10-23] MEDS: heparin, porcine 5000 units/ml vial SQ SCH ×2 (08:56→20:10)
[2020-10-23] MEDS: lactobacillus rhamnosus 10,000 MMU CELLS/CAPSULE PO SCH ×2 (08:57→20:09)
[2020-10-23] MEDS: magnesium Cl slow-release 64mg tablet PO PRN (08:57)
[2020-10-23] MEDS: K and/or MAG REPLACEMENT MC SCH ×2 (08:59→20:00)
[2020-10-23 11:00] VITALS: BP 122/68
[2020-10-23 14:19] LABS: BASOPHILS % (AUTO) 0.2 % (0-1); EOSINOPHILS # (AUTO) 0.1 X10'3 (0-0.9); EOSINOPHILS % (AUTO) 0.3 % (0-6); HEMATOCRIT 34.9 % (35.0-45.0); HEMOGLOBIN 11.7 g/dl (12.0-16.0); LYMPHOCYTES % (AUTO) 12.1 % (21-51); MEAN CORPUSCULAR HEMOGLOBIN 30.3 PG (27.0-31.0); MEAN CORPUSCULAR HGB CONC 33.6 g/dL (33.0-36.5); MEAN CORPUSCULAR VOLUME 90.1 FL (78-98); MEAN PLATELET VOLUME 6.5 FL (7.4-10.4); MONOCYTES # (AUTO) 1.4 X10'3 (0-0.9); MONOCYTES % (AUTO) 8.5 % (2-12); NEUTROPHILS # (AUTO) 12.9 X10'3 (1.8-7.7); NEUTROPHILS % (AUTO) 78.9 % (42-75); PLATELET COUNT 278 X10'3 (140-440); RED BLOOD COUNT 3.87 X10'6 (4.20-5.60); RED CELL DISTRIBUTION WIDTH 15.3 % (11.5-14.5); WHITE BLOOD COUNT 16.3 X10'3 (4.5-11.0)
[2020-10-23 14:27] LABS: ALBUMIN 1.9 G/DL (3.4-5.0); ANION GAP 7 (8-16); BLOOD UREA NITROGEN 33 MG/DL (7-18); CHLORIDE 94 MMOL/L (99-107); GLUCOSE 137 MG/DL (70-104); SODIUM 133 MMOL/L (135-145); TOTAL CARBON DIOXIDE 31.8 MMOL/L (24-32); eGFR 23 ML/MIN
[2020-10-23 15:00] VITALS: BP 116/74
--- NOTE | 2020-10-23 15:43 | NUR ---
PAGER ID: [phone] MESSAGE: D[place] ON [phone], [facility] IN [place] SAYS THAT 3011 HAS NOT BEEN THERE SINCE 2014. REQUESTED REPORTS FOR THAT VISIT. THX
[2020-10-23] MEDS ORDERED: Dextrose 10%-water IV solution 1,000 ML IV PRN (16:35)
[2020-10-23] MEDS ORDERED: magnesium 2GM in 50ml NS 50 ML IV PRN (16:35)
[2020-10-23] MEDS ORDERED: magnesium 4gm in 100ml NS 100 ML IV PRN (16:35)
[2020-10-23] MEDS ORDERED: magnesium Cl slow-release 64mg tablet PO PRN (16:35)
[2020-10-23] MEDS ORDERED: chromic chloride inj. 5 MCG, ZINC/COPPER/MANGANESE/SELENIUM 0.5 ML in AA 5%/CALCIUM/LYT... IV SCH (16:45)
--- NOTE | 2020-10-23 16:52 | NUR ---
TPN Consult: Pt continues to have high output enterocutaneous fistula surrounding ileostomy site causing worsening skin breakdown and pending surgeon evaluation at this time per RN. Pt to be made NPO w/ TPN to start today to minimize fistula output/skin breakdown per MD; PN recs below using IBW given pending scaled wt this admit. Pt Ileostomy output documented as mostly 500-800ml/day which is WNL. Pt previously PO 75-100% avg carb controlled diet meeting needs prior to NPO status. Will monitor for TPN tolerance, adjustment needs, and PO diet advancement as medically indicated. Recommendations: 1) TPN via PICC per MD using 2:1 Clinimix E 5/20 at 80ml/hr goal w/ 75ml separate 20% intralipids to run 12 hours each day. To provide 2040ml volume 96g AA, 384g DEX (2.62mg/kg/min), 15g lipids(meeting EFA needs), and 1840total kcals. 2) PALB Q /; daily wts 3) monitor for PN tolerance 4) consider PO diet w/ anti-diarrheal in view of high output fistula 5) Advance to heart healthy CHO controlled diet as medically indicated 6) Bowel care per rx 7) Scaled weight this admit; weekly scaled weights thereafter 8) F/u verbal DM education and protein education once stable Addendum: 10/23/20 at [address] Amended: Links added.
[2020-10-23 18:00] VITALS: BP_SYST 106; BP_SYST 124; BP_DIAS 63; BP_DIAS 69
--- NOTE | 2020-10-23 18:36 | NUR ---
Problems reprioritized. Patient report given, questions answered & plan of care reviewed with Reinaldo RN.
--- NOTE | 2020-10-23 19:04 | NUR ---
Patient in room PCU 3011. I have received report from Yaima SHERMAN and had the opportunity to ask questions and assume patient care.
[2020-10-23 19:30] LABS: MAGNESIUM 1.3 MG/DL (1.5-2.4); PREALBUMIN 16.2 MG/DL (19-36); TRIGLYCERIDES 227 MG/DL (20-135)
[2020-10-23] MEDS ORDERED: chromic chloride inj. 10 MCG, ZINC/COPPER/MANGANESE/SELENIUM 1 ML in AA 5%/CALCIUM/LYTE... IV SCH (20:00)
[2020-10-23] MEDS: fat emulsion IV bag 250 ML IV SCH (20:11)
[2020-10-23] MEDS: insulin glargine (Lantus) pen - multi-dose SQ SCH (21:00)
[2020-10-23] MEDS: morphine 2 MG/ML inj. syringe IV PRN (21:42)
[2020-10-23 22:00] VITALS: BP 113/67
[2020-10-24 02:00] VITALS: BP 107/59
[2020-10-24] MEDS: morphine 2 MG/ML inj. syringe IV PRN ×4 (02:05→22:31)
[2020-10-24 04:11] LABS: BASOPHILS # (AUTO) 0.1 X10'3 (0-0.2); BASOPHILS % (AUTO) 0.5 % (0-1); EOSINOPHILS # (AUTO) 0.1 X10'3 (0-0.9); EOSINOPHILS % (AUTO) 0.8 % (0-6); HEMATOCRIT 32.9 % (35.0-45.0); HEMOGLOBIN 11.5 g/dl (12.0-16.0); LYMPHOCYTES # (AUTO) 2.7 X10'3 (1.1-4.8); LYMPHOCYTES % (AUTO) 17.3 % (21-51); MEAN CORPUSCULAR HEMOGLOBIN 31.4 PG (27.0-31.0); MEAN CORPUSCULAR HGB CONC 34.8 g/dL (33.0-36.5); MEAN CORPUSCULAR VOLUME 90.2 FL (78-98); MEAN PLATELET VOLUME 6.5 FL (7.4-10.4); MONOCYTES % (AUTO) 6.4 % (2-12); NEUTROPHILS # (AUTO) 11.6 X10'3 (1.8-7.7); PLATELET COUNT 294 X10'3 (140-440); RED BLOOD COUNT 3.65 X10'6 (4.20-5.60); RED CELL DISTRIBUTION WIDTH 15.3 % (11.5-14.5); WHITE BLOOD COUNT 15.5 X10'3 (4.5-11.0)
[2020-10-24 04:22] LABS: ALBUMIN 1.9 G/DL (3.4-5.0); ANION GAP 9 (8-16); BLOOD UREA NITROGEN 34 MG/DL (7-18); CALCIUM 7.4 MG/DL (8.5-10.1); CHLORIDE 94 MMOL/L (99-107); CREATININE 2.12 MG/DL (0.40-0.90); GLUCOSE 175 MG/DL (70-104); POTASSIUM 3.5 MMOL/L (3.5-5.1); SODIUM 133 MMOL/L (135-145); TOTAL CARBON DIOXIDE 29.7 MMOL/L (24-32); eGFR 24 ML/MIN
[2020-10-24 04:33] LABS: MAGNESIUM 4.4 MG/DL (1.5-2.4)
[2020-10-24 04:43] VITALS: BP 116/70
--- NOTE | 2020-10-24 04:45 | NUR ---
Notified Dr. Daigle of patients critical magnesium of 4.4. No new orders. Patient's vitals stable.
[2020-10-24 07:00] VITALS: BP 107/62
--- NOTE | 2020-10-24 07:00 | NUR ---
Patient in room PCU 3011. I have received report from Reinaldo Gudino and had the opportunity to ask questions and assume patient care.
--- NOTE | 2020-10-24 07:07 | NUR ---
Patient in room PCU 3011. I have received report from Reinaldo SHERMAN and had the opportunity to ask questions and assume patient care.
[2020-10-24] MEDS: heparin, porcine 5000 units/ml vial SQ SCH ×2 (07:16→08:46)
[2020-10-24] MEDS: K and/or MAG REPLACEMENT MC SCH ×2 (08:00→20:00)
[2020-10-24] MEDS: Dakins solution (1/4 strength) 473ml solution TP SCH ×2 (08:00→21:19)
[2020-10-24] MEDS: normal saline 1000ml 1,000 ML IV SCH ×2 (08:05→21:25)
[2020-10-24] MEDS: clindamycin 600mg/D5W 50ml 50 ML IV SCH ×2 (08:45→15:40)
[2020-10-24] MEDS: lactobacillus rhamnosus 10,000 MMU CELLS/CAPSULE PO SCH ×2 (08:46→21:19)
[2020-10-24] MEDS ORDERED: LIDOcaine 2% 10ml TOPICAL JELLY (Urojet) TP ONE (09:15)
[2020-10-24 11:00] VITALS: BP 133/68
--- NOTE | 2020-10-24 12:08 | NUR ---
Trung Consult: Pt Trung 11 w/ IAD and noted enterocutaneous fistula. PN recs below taking these into consideration. Noted pt Mg 4.4 up from 1.3 yesterday but did receive PRN PO slow-mag 10/23, and IV mag replacement today in addition to mag from PN electrolytes. No evidence of refeeding at this time though RD did d/w RN regarding holding additional mag at this time if MD agreeable. Addendum: 10/24/20 at [address] Amended: Links added.
--- NOTE | 2020-10-24 13:27 | NUR ---
Page to Dr. Cortez PAGER ID: [phone] MESSAGE: Bárbara [id number]. Pt Ian Jean 3011. Mag is 4.4 today, up from 1.4 yesterday. It looks like she was replaced yesterday with slow-mag PO and last night with IV Mag, and she now has Mag in her TPN. Will continue to monitor.
[2020-10-24] MEDS ORDERED: insulin regular, human U-100 3ml vial - multi-dose SQ SCH (14:35)
[2020-10-24] MEDS: insulin regular, human U-100 3ml vial - multi-dose SQ SCH ×2 (14:40→22:03)
[2020-10-24 15:00] VITALS: BP 102/57
[2020-10-24] MEDS: chromic chloride inj. 5 MCG, ZINC/COPPER/MANGANESE/SELENIUM 0.5 ML in AA 5%/CALCIUM/LYT... IV SCH (16:41)
[2020-10-24] MEDS ORDERED: diphenoxylate/atropine tablet (Lomotil) PO PRN (17:35)
--- NOTE | 2020-10-24 17:37 | NUR ---
Orders for lomotil and ocreotide gtt put in per Dr. Cortez.
--- NOTE | 2020-10-24 18:52 | NUR ---
Problems reprioritized. Patient report given, questions answered & plan of care reviewed with Caitlyn RN, Katya RN.
--- NOTE | 2020-10-24 18:52 | NUR ---
Problems reprioritized. Patient report given, questions answered & plan of care reviewed with Caitlyn SHERMAN.
--- NOTE | 2020-10-24 18:52 | NUR ---
Orientee documentation: I have reviewed and agree with all interventions, assessments performed and documented by Pedro SHERMAN.
--- NOTE | 2020-10-24 18:52 | NUR ---
Patient in room PCU 3011. I have received report from Godwin RN's and had the opportunity to ask questions and assume patient care.
[2020-10-24] MEDS: insulin glargine (Lantus) pen - multi-dose SQ SCH (21:00)
[2020-10-24] MEDS: octreotide inj. 1,250 MCG in normal saline 250ml IV soln 243.75 ML IV SCH (21:10)
[2020-10-24] MEDS: fat emulsion IV bag 250 ML IV SCH (21:12)
[2020-10-24 22:00] VITALS: BP 104/54
[2020-10-25] MEDS: diphenhydrAMINE 25mg capsule PO PRN ×3 (00:22→21:38)
[2020-10-25] MEDS: clindamycin 600mg/D5W 50ml 50 ML IV SCH ×4 (01:00→23:06)
[2020-10-25 02:47] VITALS: BP 107/63
[2020-10-25] MEDS: insulin regular, human U-100 3ml vial - multi-dose SQ SCH ×3 (03:06→21:34)
[2020-10-25] MEDS: HYDROcodone/acetaminophen 10/325mg tab PO PRN (03:10)
[2020-10-25] MEDS: normal saline 1000ml 1,000 ML IV SCH ×2 (05:07→21:18)
[2020-10-25] MEDS: chromic chloride inj. 5 MCG, ZINC/COPPER/MANGANESE/SELENIUM 0.5 ML in AA 5%/CALCIUM/LYT... IV SCH ×2 (05:08→17:09)
[2020-10-25 06:00] VITALS: BP 98/52
[2020-10-25 06:29] LABS: BASOPHILS # (AUTO) 0.1 X10'3 (0-0.2); BASOPHILS % (AUTO) 0.4 % (0-1); EOSINOPHILS # (AUTO) 0.2 X10'3 (0-0.9); EOSINOPHILS % (AUTO) 1.1 % (0-6); HEMATOCRIT 25.7 % (35.0-45.0); HEMOGLOBIN 8.6 g/dl (12.0-16.0); LYMPHOCYTES # (AUTO) 2.4 X10'3 (1.1-4.8); LYMPHOCYTES % (AUTO) 15.3 % (21-51); MEAN CORPUSCULAR HEMOGLOBIN 30.4 PG (27.0-31.0); MEAN CORPUSCULAR HGB CONC 33.6 g/dL (33.0-36.5); MEAN CORPUSCULAR VOLUME 90.6 FL (78-98); MEAN PLATELET VOLUME 6.7 FL (7.4-10.4); MONOCYTES # (AUTO) 1.1 X10'3 (0-0.9); MONOCYTES % (AUTO) 7.3 % (2-12); NEUTROPHILS # (AUTO) 11.7 X10'3 (1.8-7.7); NEUTROPHILS % (AUTO) 75.9 % (42-75); PLATELET COUNT 284 X10'3 (140-440); RED BLOOD COUNT 2.84 X10'6 (4.20-5.60); RED CELL DISTRIBUTION WIDTH 15.1 % (11.5-14.5); WHITE BLOOD COUNT 15.4 X10'3 (4.5-11.0)
--- NOTE | 2020-10-25 06:30 | NUR ---
Patient in room PCU 3011. I have received report from LANE Brady and had the opportunity to ask questions and assume patient care.
[2020-10-25 06:32] LABS: ALBUMIN 1.8 G/DL (3.4-5.0); ANION GAP 8 (8-16); BLOOD UREA NITROGEN 38 MG/DL (7-18); BUN/CREATININE RATIO 20.8 (6.6-38.0); CALCIUM 7.7 MG/DL (8.5-10.1); CHLORIDE 100 MMOL/L (99-107); CREATININE 1.83 MG/DL (0.40-0.90); GLUCOSE 114 MG/DL (70-104); MAGNESIUM 2.7 MG/DL (1.5-2.4); PHOSPHORUS 5.1 MG/DL (2.3-4.5); POTASSIUM 3.6 MMOL/L (3.5-5.1); PREALBUMIN 16.6 MG/DL (19-36); SODIUM 136 MMOL/L (135-145); TOTAL CARBON DIOXIDE 27.9 MMOL/L (24-32); TRIGLYCERIDES 160 MG/DL (20-135); eGFR 28 ML/MIN
--- NOTE | 2020-10-25 06:44 | NUR ---
Problems reprioritized. Patient report given, questions answered & plan of care reviewed with LANE De Dios.
[2020-10-25] MEDS: Dakins solution (1/4 strength) 473ml solution TP SCH ×2 (08:00→21:13)
[2020-10-25] MEDS: K and/or MAG REPLACEMENT MC SCH ×2 (08:00→20:00)
[2020-10-25] MEDS: lactobacillus rhamnosus 10,000 MMU CELLS/CAPSULE PO SCH ×2 (09:48→21:12)
[2020-10-25] MEDS: heparin, porcine 5000 units/ml vial SQ SCH ×2 (09:51→21:13)
--- NOTE | 2020-10-25 10:39 | NUR ---
Discussed plan of care with Dr. Cortez. Recieved verbal order to karissa Lawson from PRN to scheduled q6h.
[2020-10-25 11:00] VITALS: BP 105/54
[2020-10-25] MEDS: diphenoxylate/atropine tablet (Lomotil) PO SCH ×2 (14:56→21:12)
[2020-10-25 15:00] VITALS: BP 116/55
--- NOTE | 2020-10-25 16:34 | NUR ---
Dr. tillman rounded on patient. He would like patient off of wall suction from fistula (ileostomy bag with suction applied) and to have just an ileostomy application to be applied by wound care.
[2020-10-25 18:00] VITALS: BP 109/67
--- NOTE | 2020-10-25 18:15 | NUR ---
Problems reprioritized. Patient report given, questions answered & plan of care reviewed with LANE Blas.
[2020-10-25] MEDS: fat emulsion 20% inj. 100 ML IV SCH (21:12)
[2020-10-25] MEDS: ondansetron/PF 4mg/2ml inj IV PRN (21:19)
[2020-10-25] MEDS: morphine 2 MG/ML inj. syringe IV PRN (21:19)
[2020-10-25] MEDS: insulin glargine (Lantus) pen - multi-dose SQ SCH (21:30)
[2020-10-25 22:00] VITALS: BP 136/72
[2020-10-26] VITALS (7 sets, daily range): BP systolic 87–122; BP diastolic 46–103
[2020-10-26] MEDS: insulin regular, human U-100 3ml vial - multi-dose SQ SCH ×4 (01:02→20:00)
[2020-10-26] MEDS: diphenoxylate/atropine tablet (Lomotil) PO SCH ×4 (01:07→19:19)
[2020-10-26] MEDS: HYDROcodone/acetaminophen 10/325mg tab PO PRN ×4 (01:08→19:19)
[2020-10-26 02:58] LABS: BASOPHILS % (AUTO) 0.4 % (0-1); EOSINOPHILS # (AUTO) 0.2 X10'3 (0-0.9); EOSINOPHILS % (AUTO) 1.7 % (0-6); HEMATOCRIT 27.3 % (35.0-45.0); HEMOGLOBIN 9.3 g/dl (12.0-16.0); LYMPHOCYTES # (AUTO) 1.5 X10'3 (1.1-4.8); LYMPHOCYTES % (AUTO) 16.1 % (21-51); MEAN CORPUSCULAR HEMOGLOBIN 31.3 PG (27.0-31.0); MEAN CORPUSCULAR HGB CONC 34.1 g/dL (33.0-36.5); MEAN CORPUSCULAR VOLUME 91.9 FL (78-98); MEAN PLATELET VOLUME 6.4 FL (7.4-10.4); MONOCYTES # (AUTO) 0.7 X10'3 (0-0.9); MONOCYTES % (AUTO) 7.1 % (2-12); NEUTROPHILS % (AUTO) 74.7 % (42-75); PLATELET COUNT 255 X10'3 (140-440); RED BLOOD COUNT 2.97 X10'6 (4.20-5.60); RED CELL DISTRIBUTION WIDTH 14.8 % (11.5-14.5); WHITE BLOOD COUNT 9.4 X10'3 (4.5-11.0)
[2020-10-26 03:00] LABS: ALBUMIN 1.6 G/DL (3.4-5.0); ANION GAP 4 (8-16); BLOOD UREA NITROGEN 42 MG/DL (7-18); BUN/CREATININE RATIO 27.8 (6.6-38.0); CALCIUM 7.4 MG/DL (8.5-10.1); CHLORIDE 102 MMOL/L (99-107); CREATININE 1.51 MG/DL (0.40-0.90); GLUCOSE 167 MG/DL (70-104); POTASSIUM 3.5 MMOL/L (3.5-5.1); SODIUM 135 MMOL/L (135-145); TOTAL CARBON DIOXIDE 29.2 MMOL/L (24-32); eGFR 35 ML/MIN
[2020-10-26] MEDS: chromic chloride inj. 5 MCG, ZINC/COPPER/MANGANESE/SELENIUM 0.5 ML in AA 5%/CALCIUM/LYT... IV SCH ×2 (05:23→16:47)
--- NOTE | 2020-10-26 06:13 | NUR ---
Problems reprioritized. Patient report given, questions answered & plan of care reviewed with Stevo SHERMAN.
--- NOTE | 2020-10-26 06:22 | NUR ---
Patient in room PCU 3011. I have received report from LANE Najera and had the opportunity to ask questions and assume patient care.
[2020-10-26] MEDS: K and/or MAG REPLACEMENT MC SCH ×2 (08:00→19:20)
[2020-10-26] MEDS: lactobacillus rhamnosus 10,000 MMU CELLS/CAPSULE PO SCH ×2 (08:42→19:19)
[2020-10-26] MEDS: clindamycin 600mg/D5W 50ml 50 ML IV SCH ×2 (08:42→15:21)
[2020-10-26] MEDS: heparin, porcine 5000 units/ml vial SQ SCH ×2 (08:43→19:20)
[2020-10-26] MEDS: Dakins solution (1/4 strength) 473ml solution TP SCH ×2 (08:44→19:32)
--- NOTE | 2020-10-26 09:45 | NUR ---
Reassessment: Pt continues receiving TPN and tolerating. Serum Na and K WNL today, no new Phos/Mag labs. LBM 10/25. Pt started on antidiarrheal 10/25 (Lomotil and Octreotide). Will continue to follow closely and make recommendations as appropriate. Recommendations: 1) TPN via PICC per MD using 2:1 Clinimix-E 5/20 at 80ml/hr goal with 75ml separate 20% intralipids to run 12 hours each day. To provide 2040ml volume 96g AA, 384g DEX (2.62mg/kg/min), 15g lipids(meeting EFA needs), and 1840total kcals. 2) PALB q / 3) Monitor for PN tolerance 4) Advance to heart healthy CHO controlled diet as medically indicated 5) Bowel care per rx; antidiarrheal per MD 6) Daily weights 7) F/u verbal DM and protein educations once stable Addendum: 10/26/20 at [address] Amended: Links added.
[2020-10-26] MEDS: normal saline 1000ml 1,000 ML IV SCH (12:32)
[2020-10-26] MEDS: morphine 2 MG/ML inj. syringe IV PRN ×2 (14:29→21:23)
--- NOTE | 2020-10-26 14:45 | NUR ---
Patient did not have dressing to forehead on this morning. Patient stated she had "pulled it off last night." Redressed forehead wound during wound care. Patient kept dressing to forehead on until bed bath/shampooed hair. Patient refuses to have it redressed at this time. Will continue to monitor.
[2020-10-26] MEDS: octreotide inj. 1,250 MCG in normal saline 250ml IV soln 243.75 ML IV SCH (16:48)
--- NOTE | 2020-10-26 18:05 | NUR ---
Problems reprioritized. Patient report given, questions answered & plan of care reviewed with LANE Blas.
[2020-10-26] MEDS: diphenhydrAMINE 25mg capsule PO PRN (19:19)
[2020-10-26] MEDS: LORazepam 0.5 MG tablet PO PRN (19:19)
[2020-10-26] MEDS: fat emulsion 20% inj. 100 ML IV SCH (19:32)
[2020-10-26] MEDS: insulin glargine (Lantus) pen - multi-dose SQ SCH (20:02)
[2020-10-26] MEDS: ondansetron/PF 4mg/2ml inj IV PRN (21:23)
[2020-10-27] MEDS: HYDROcodone/acetaminophen 10/325mg tab PO PRN ×4 (00:17→19:40)
[2020-10-27] MEDS: clindamycin 600mg/D5W 50ml 50 ML IV SCH ×4 (00:17→23:58)
[2020-10-27] MEDS: diphenoxylate/atropine tablet (Lomotil) PO SCH ×4 (01:55→19:40)
[2020-10-27] MEDS: morphine 2 MG/ML inj. syringe IV PRN ×3 (01:55→22:00)
[2020-10-27] MEDS: normal saline 1000ml 1,000 ML IV SCH ×2 (01:56→16:05)
[2020-10-27 02:00] VITALS: BP 114/53
[2020-10-27] MEDS: insulin regular, human U-100 3ml vial - multi-dose SQ SCH ×4 (02:56→20:41)
[2020-10-27 04:57] LABS: BASOPHILS % (AUTO) 0.3 % (0-1); EOSINOPHILS # (AUTO) 0.2 X10'3 (0-0.9); EOSINOPHILS % (AUTO) 2.4 % (0-6); HEMATOCRIT 26.7 % (35.0-45.0); HEMOGLOBIN 8.9 g/dl (12.0-16.0); LYMPHOCYTES # (AUTO) 1.3 X10'3 (1.1-4.8); LYMPHOCYTES % (AUTO) 17.2 % (21-51); MEAN CORPUSCULAR HEMOGLOBIN 30.6 PG (27.0-31.0); MEAN CORPUSCULAR HGB CONC 33.3 g/dL (33.0-36.5); MEAN CORPUSCULAR VOLUME 91.9 FL (78-98); MEAN PLATELET VOLUME 6.3 FL (7.4-10.4); MONOCYTES # (AUTO) 0.5 X10'3 (0-0.9); NEUTROPHILS # (AUTO) 5.4 X10'3 (1.8-7.7); NEUTROPHILS % (AUTO) 73.1 % (42-75); PLATELET COUNT 270 X10'3 (140-440); WHITE BLOOD COUNT 7.4 X10'3 (4.5-11.0)
[2020-10-27 05:08] LABS: ALBUMIN 1.6 G/DL (3.4-5.0); ANION GAP 4 (8-16); BLOOD UREA NITROGEN 41 MG/DL (7-18); BUN/CREATININE RATIO 28.3 (6.6-38.0); CALCIUM 7.5 MG/DL (8.5-10.1); CHLORIDE 104 MMOL/L (99-107); CREATININE 1.45 MG/DL (0.40-0.90); GLUCOSE 161 MG/DL (70-104); MAGNESIUM 1.7 MG/DL (1.5-2.4); POTASSIUM 3.5 MMOL/L (3.5-5.1); SODIUM 134 MMOL/L (135-145); TOTAL CARBON DIOXIDE 26.2 MMOL/L (24-32); eGFR 37 ML/MIN
[2020-10-27 06:00] VITALS: BP 106/53
--- NOTE | 2020-10-27 06:30 | NUR ---
Patient in room PCU 3011. I have received report from LANE Blas and had the opportunity to ask questions and assume patient care.
[2020-10-27] MEDS: K and/or MAG REPLACEMENT MC SCH ×2 (08:00→19:41)
[2020-10-27] MEDS: heparin, porcine 5000 units/ml vial SQ SCH ×2 (08:03→19:40)
[2020-10-27] MEDS: lactobacillus rhamnosus 10,000 MMU CELLS/CAPSULE PO SCH ×2 (08:03→19:40)
[2020-10-27] MEDS: Dakins solution (1/4 strength) 473ml solution TP SCH ×2 (08:04→19:41)
[2020-10-27] MEDS: chromic chloride inj. 5 MCG, ZINC/COPPER/MANGANESE/SELENIUM 0.5 ML in AA 5%/CALCIUM/LYT... IV SCH ×2 (08:04→17:08)
[2020-10-27] MEDS: MVI, adult No.4 with vit. K 10 ML in dextrose 5% water 500ml 500 ML IV SCH ×2 (11:25)
[2020-10-27 15:02] LABS: PHOSPHORUS 4.2 MG/DL (2.3-4.5)
[2020-10-27 18:00] VITALS: BP 101/50
--- NOTE | 2020-10-27 18:32 | NUR ---
Patient in room PCU 3011. I have received report from LANE Blas and had the opportunity to ask questions and assume patient care.
[2020-10-27] MEDS: fat emulsion 20% inj. 100 ML IV SCH (19:39)
[2020-10-27] MEDS: LORazepam 0.5 MG tablet PO PRN (19:40)
[2020-10-27] MEDS: ondansetron/PF 4mg/2ml inj IV PRN (19:41)
[2020-10-27] MEDS: insulin glargine (Lantus) pen - multi-dose SQ SCH (19:43)
[2020-10-27] MEDS: diphenhydrAMINE 25mg capsule PO PRN (21:59)
[2020-10-27 22:00] VITALS: BP 100/54
[2020-10-28] MEDS: HYDROcodone/acetaminophen 10/325mg tab PO PRN ×4 (00:20→22:23)
[2020-10-28] MEDS: diphenoxylate/atropine tablet (Lomotil) PO SCH ×4 (01:30→19:55)
[2020-10-28] MEDS: insulin regular, human U-100 3ml vial - multi-dose SQ SCH ×2 (01:43→14:18)
[2020-10-28 02:00] VITALS: BP 95/54
[2020-10-28] MEDS: normal saline 1000ml 1,000 ML IV SCH ×2 (04:59→18:45)
[2020-10-28 06:00] VITALS: BP 100/46
--- NOTE | 2020-10-28 06:14 | NUR ---
Patient in room PCU 3011. I have received report from LANE Blas and had the opportunity to ask questions and assume patient care.
[2020-10-28] MEDS: clindamycin 600mg/D5W 50ml 50 ML IV SCH ×3 (07:43→23:50)
[2020-10-28] MEDS: lactobacillus rhamnosus 10,000 MMU CELLS/CAPSULE PO SCH ×2 (07:44→19:55)
[2020-10-28] MEDS: chromic chloride inj. 5 MCG, ZINC/COPPER/MANGANESE/SELENIUM 0.5 ML in AA 5%/CALCIUM/LYT... IV SCH ×2 (07:44→19:55)
[2020-10-28 07:45] LABS: BASOPHILS # (AUTO) 0.1 X10'3 (0-0.2); BASOPHILS % (AUTO) 0.7 % (0-1); EOSINOPHILS # (AUTO) 0.3 X10'3 (0-0.9); HEMATOCRIT 25.5 % (35.0-45.0); HEMOGLOBIN 8.6 g/dl (12.0-16.0); LYMPHOCYTES # (AUTO) 1.5 X10'3 (1.1-4.8); LYMPHOCYTES % (AUTO) 17.5 % (21-51); MEAN CORPUSCULAR HEMOGLOBIN 31.2 PG (27.0-31.0); MEAN CORPUSCULAR HGB CONC 33.9 g/dL (33.0-36.5); MEAN CORPUSCULAR VOLUME 91.9 FL (78-98); MEAN PLATELET VOLUME 6.7 FL (7.4-10.4); MONOCYTES # (AUTO) 0.6 X10'3 (0-0.9); MONOCYTES % (AUTO) 7.5 % (2-12); NEUTROPHILS # (AUTO) 6.1 X10'3 (1.8-7.7); NEUTROPHILS % (AUTO) 71.3 % (42-75); PLATELET COUNT 290 X10'3 (140-440); RED BLOOD COUNT 2.77 X10'6 (4.20-5.60); RED CELL DISTRIBUTION WIDTH 15.1 % (11.5-14.5); WHITE BLOOD COUNT 8.5 X10'3 (4.5-11.0)
[2020-10-28 07:59] LABS: ALANINE AMINOTRANSFERASE 7 U/L (12-78); ALBUMIN 1.6 G/DL (3.4-5.0); ALBUMIN/GLOBULIN RATIO 0.3 (1.1-1.5); ALKALINE PHOSPHATASE 79 IU/L (46-116); ANION GAP 6 (8-16); ASPARTATE AMINO TRANSFERASE 10 U/L (10-37); BILIRUBIN,TOTAL 0.4 MG/DL (0.1-1.0); BLOOD UREA NITROGEN 41 MG/DL (7-18); BUN/CREATININE RATIO 29.5 (6.6-38.0); CALCIUM 7.6 MG/DL (8.5-10.1); CHLORIDE 104 MMOL/L (99-107); CREATININE 1.39 MG/DL (0.40-0.90); POTASSIUM 3.6 MMOL/L (3.5-5.1); SODIUM 136 MMOL/L (135-145); TOTAL CARBON DIOXIDE 26.5 MMOL/L (24-32); TOTAL PROTEIN 6.4 G/DL (6.4-8.2); eGFR 39 ML/MIN
[2020-10-28] MEDS: K and/or MAG REPLACEMENT MC SCH ×2 (08:00→19:56)
[2020-10-28] MEDS: heparin, porcine 5000 units/ml vial SQ SCH ×2 (08:05→19:54)
[2020-10-28] MEDS: Dakins solution (1/4 strength) 473ml solution TP SCH ×2 (08:05→19:56)
[2020-10-28 08:07] LABS: GLUCOSE 43 MG/DL (70-104)
--- NOTE | 2020-10-28 08:25 | NUR ---
Informed Dr Tracey of blood glucose status: PAGER ID: [phone] MESSAGE: Corinna Jean 3011 venous glucose CRIT at 43. CBG obtained after is 87. No s/sx of hypoglycemia. Will continue to monitor. Lorene [phone]
[2020-10-28] MEDS: morphine 2 MG/ML inj. syringe IV PRN ×2 (08:33→20:43)
[2020-10-28 11:00] VITALS: BP 104/49
[2020-10-28] MEDS ORDERED: nicotine 21mg patch - 24 hr TD ONE (15:10)
[2020-10-28] MEDS: hydrOXYzine 25 MG tablet PO PRN (15:27)
--- NOTE | 2020-10-28 15:45 | NUR ---
took pt over from Lorene RN, pt awake, alert and appropriate, will continue to monitor.
[2020-10-28] MEDS: octreotide inj. 1,250 MCG in normal saline 250ml IV soln 243.75 ML IV SCH (17:40)
[2020-10-28 18:00] VITALS: BP 97/52
--- NOTE | 2020-10-28 18:00 | NUR ---
Report given to Wan SHERMAN who is re-assuming care of patient. Updates given by both myself and Lorene SHERMAN for full report.
[2020-10-28] MEDS: insulin glargine (Lantus) pen - multi-dose SQ SCH (19:56)
[2020-10-28] MEDS: fat emulsion 20% inj. 100 ML IV SCH (19:56)
[2020-10-28] MEDS: dextrose 50%-water 50ml dispensing syringe IV PRN (20:48)
--- NOTE | 2020-10-28 21:07 | NUR ---
critical glucoses resulted x 2 , waiter/waitress tavern aware, will hold insulin and recheck
[2020-10-28 22:00] VITALS: BP 100/54
[2020-10-28] MEDS: LORazepam 0.5 MG tablet PO PRN (22:23)
[2020-10-29 02:00] VITALS: BP 104/54
[2020-10-29] MEDS: morphine 2 MG/ML inj. syringe IV PRN ×4 (02:09→19:07)
[2020-10-29] MEDS: diphenoxylate/atropine tablet (Lomotil) PO SCH ×4 (02:09→19:09)
[2020-10-29] MEDS: insulin regular, human U-100 3ml vial - multi-dose SQ SCH ×3 (02:49→15:08)
[2020-10-29 04:34] LABS: BASOPHILS % (AUTO) 0.6 % (0-1); EOSINOPHILS # (AUTO) 0.1 X10'3 (0-0.9); EOSINOPHILS % (AUTO) 2.5 % (0-6); HEMATOCRIT 23.6 % (35.0-45.0); LYMPHOCYTES # (AUTO) 1.1 X10'3 (1.1-4.8); LYMPHOCYTES % (AUTO) 20.4 % (21-51); MEAN CORPUSCULAR HEMOGLOBIN 31.3 PG (27.0-31.0); MEAN CORPUSCULAR VOLUME 92.1 FL (78-98); MEAN PLATELET VOLUME 6.2 FL (7.4-10.4); MONOCYTES # (AUTO) 0.5 X10'3 (0-0.9); MONOCYTES % (AUTO) 9.2 % (2-12); NEUTROPHILS # (AUTO) 3.8 X10'3 (1.8-7.7); NEUTROPHILS % (AUTO) 67.3 % (42-75); PLATELET COUNT 283 X10'3 (140-440); RED BLOOD COUNT 2.56 X10'6 (4.20-5.60); RED CELL DISTRIBUTION WIDTH 14.8 % (11.5-14.5); WHITE BLOOD COUNT 5.6 X10'3 (4.5-11.0)
[2020-10-29 04:43] LABS: ALANINE AMINOTRANSFERASE 6 U/L (12-78); ALBUMIN 1.4 G/DL (3.4-5.0); ALBUMIN/GLOBULIN RATIO 0.3 (1.1-1.5); ALKALINE PHOSPHATASE 87 IU/L (46-116); ANION GAP 1 (8-16); ASPARTATE AMINO TRANSFERASE 5 U/L (10-37); BILIRUBIN,TOTAL 0.3 MG/DL (0.1-1.0); BLOOD UREA NITROGEN 36 MG/DL (7-18); BUN/CREATININE RATIO 23.8 (6.6-38.0); CALCIUM 7.4 MG/DL (8.5-10.1); CHLORIDE 104 MMOL/L (99-107); CREATININE 1.51 MG/DL (0.40-0.90); GLUCOSE 236 MG/DL (70-104); MAGNESIUM 1.5 MG/DL (1.5-2.4); PHOSPHORUS 3.7 MG/DL (2.3-4.5); POTASSIUM 3.9 MMOL/L (3.5-5.1); PREALBUMIN 13.4 MG/DL (19-36); SODIUM 133 MMOL/L (135-145); TOTAL PROTEIN 6.2 G/DL (6.4-8.2); TRIGLYCERIDES 129 MG/DL (20-135); eGFR 35 ML/MIN
[2020-10-29 06:00] VITALS: BP 121/55
--- NOTE | 2020-10-29 07:24 | NUR ---
Patient in room PCU 3011. I have received report from LANE COLINDRES and had the opportunity to ask questions and assume patient care.
[2020-10-29] MEDS: clindamycin 600mg/D5W 50ml 50 ML IV SCH ×3 (08:00→23:25)
[2020-10-29] MEDS: K and/or MAG REPLACEMENT MC SCH ×2 (08:00→19:10)
[2020-10-29] MEDS: hydrOXYzine 25 MG tablet PO PRN ×2 (08:01→19:09)
[2020-10-29] MEDS: heparin, porcine 5000 units/ml vial SQ SCH ×2 (08:02→19:09)
[2020-10-29] MEDS: nicotine 21mg patch - 24 hr TD SCH (08:03)
[2020-10-29] MEDS: lactobacillus rhamnosus 10,000 MMU CELLS/CAPSULE PO SCH ×2 (08:04→19:09)
[2020-10-29] MEDS: normal saline 1000ml 1,000 ML IV SCH ×2 (08:05→21:23)
[2020-10-29] MEDS: chromic chloride inj. 5 MCG, ZINC/COPPER/MANGANESE/SELENIUM 0.5 ML in AA 5%/CALCIUM/LYT... IV SCH ×2 (09:09→19:08)
[2020-10-29 11:00] VITALS: BP 105/51
--- NOTE | 2020-10-29 11:51 | NUR ---
UNABLE TO GIVE CLEOCIN DUE TO ALL PORTS OF PICC BEING USED, AND UNABLE TO GET AN IV IN DUE TO BEING A HARD STICK CALLED PICC TO ASSIST. PICC WILL BE ABLE TO ATTEMPT IV PLACEMENT IN AFTERNOON
--- NOTE | 2020-10-29 14:45 | NUR ---
F/u 10/29: Pt tolerating TPN at goal. LBM 10/27 1/ 90ml Ileostomy output though unsure of accuracy w/ fistula output volume not noted in EMR; continues to receive Q6H lomotil. Pt to OR if high output fistula persists per MD note. Will continue to monitor for PN tolerance and Ileostomy/fistula output. Recommendations: 1) TPN via PICC per MD using 2:1 Clinimix-E 10/04 at 80ml/hr goal with 75ml separate 20% intralipids to run 12 hours each day. To provide 2040ml volume 96g AA, 384g DEX (2.62mg/kg/min), 15g lipids(meeting EFA needs), and 1840total kcals. 2) PALB/TG q /; daily wts 3) Monitor for PN tolerance 4) Advance to heart healthy CHO controlled diet as medically indicated 5) Bowel care per rx; antidiarrheal per MD 6) F/u verbal DM and protein educations once PO diet and appropriate Addendum: 10/29/20 at [address] Amended: Links added.
[2020-10-29 15:00] VITALS: BP 107/56
[2020-10-29] MEDS: HYDROcodone/acetaminophen 10/325mg tab PO PRN ×2 (15:08→22:26)
[2020-10-29] MEDS: Dakins solution (1/4 strength) 473ml solution TP SCH ×2 (15:13→19:10)
[2020-10-29 18:00] VITALS: BP 108/43
[2020-10-29] MEDS: ondansetron/PF 4mg/2ml inj IV PRN (19:08)
[2020-10-29] MEDS: fat emulsion 20% inj. 100 ML IV SCH (19:08)
[2020-10-29] MEDS: diphenhydrAMINE 25mg capsule PO PRN (19:09)
--- NOTE | 2020-10-29 19:12 | NUR ---
Problems reprioritized. Patient report given, questions answered & plan of care reviewed with LANE COLINDRES.
[2020-10-29] MEDS: insulin glargine (Lantus) pen - multi-dose SQ SCH (19:28)
[2020-10-29 22:00] VITALS: BP 120/47
[2020-10-29] MEDS: LORazepam 0.5 MG tablet PO PRN (22:26)
[2020-10-30] MEDS: diphenhydrAMINE 25mg capsule PO PRN ×3 (01:15→23:07)
[2020-10-30] MEDS: morphine 2 MG/ML inj. syringe IV PRN ×4 (01:15→23:07)
[2020-10-30] MEDS: ondansetron/PF 4mg/2ml inj IV PRN ×2 (01:15→14:08)
[2020-10-30] MEDS: hydrOXYzine 25 MG tablet PO PRN ×2 (01:16→19:36)
[2020-10-30] MEDS: diphenoxylate/atropine tablet (Lomotil) PO SCH ×4 (01:16→19:03)
[2020-10-30 02:00] VITALS: BP 118/74
[2020-10-30] MEDS: insulin regular, human U-100 3ml vial - multi-dose SQ SCH ×4 (02:05→19:17)
[2020-10-30 03:40] LABS: BASOPHILS % (AUTO) 0.9 % (0-1); EOSINOPHILS # (AUTO) 0.1 X10'3 (0-0.9); EOSINOPHILS % (AUTO) 3.7 % (0-6); HEMOGLOBIN 7.4 g/dl (12.0-16.0); LYMPHOCYTES # (AUTO) 1.1 X10'3 (1.1-4.8); LYMPHOCYTES % (AUTO) 28.2 % (21-51); MEAN CORPUSCULAR HEMOGLOBIN 31.5 PG (27.0-31.0); MEAN CORPUSCULAR HGB CONC 34.1 g/dL (33.0-36.5); MEAN CORPUSCULAR VOLUME 92.3 FL (78-98); MEAN PLATELET VOLUME 6.1 FL (7.4-10.4); MONOCYTES # (AUTO) 0.5 X10'3 (0-0.9); MONOCYTES % (AUTO) 11.7 % (2-12); NEUTROPHILS # (AUTO) 2.2 X10'3 (1.8-7.7); NEUTROPHILS % (AUTO) 55.5 % (42-75); PLATELET COUNT 255 X10'3 (140-440); RED BLOOD COUNT 2.36 X10'6 (4.20-5.60); RED CELL DISTRIBUTION WIDTH 15.3 % (11.5-14.5)
[2020-10-30 03:46] LABS: HEMATOCRIT 21.8 % (35.0-45.0)
[2020-10-30 03:50] LABS: ALANINE AMINOTRANSFERASE 8 U/L (12-78); ALBUMIN 1.4 G/DL (3.4-5.0); ALBUMIN/GLOBULIN RATIO 0.3 (1.1-1.5); ALKALINE PHOSPHATASE 78 IU/L (46-116); ANION GAP 6 (8-16); ASPARTATE AMINO TRANSFERASE 7 U/L (10-37); BILIRUBIN,TOTAL 0.2 MG/DL (0.1-1.0); BLOOD UREA NITROGEN 34 MG/DL (7-18); BUN/CREATININE RATIO 23.8 (6.6-38.0); CALCIUM 7.3 MG/DL (8.5-10.1); CHLORIDE 105 MMOL/L (99-107); CREATININE 1.43 MG/DL (0.40-0.90); GLUCOSE 170 MG/DL (70-104); POTASSIUM 3.9 MMOL/L (3.5-5.1); SODIUM 137 MMOL/L (135-145); TOTAL CARBON DIOXIDE 26.2 MMOL/L (24-32); eGFR 37 ML/MIN
[2020-10-30 06:00] VITALS: BP 128/62
--- NOTE | 2020-10-30 06:45 | NUR ---
Patient in room PCU 3011. I have received report from LANE Blas and had the opportunity to ask questions and assume patient care.
--- NOTE | 2020-10-30 06:46 | NUR ---
Patient in room PCU 3011. I have received report from Wan SHERMAN and had the opportunity to ask questions and assume patient care.
[2020-10-30] MEDS: K and/or MAG REPLACEMENT MC SCH ×2 (08:00→19:02)
[2020-10-30] MEDS: lactobacillus rhamnosus 10,000 MMU CELLS/CAPSULE PO SCH (09:25)
[2020-10-30] MEDS: heparin, porcine 5000 units/ml vial SQ SCH ×2 (09:25→19:04)
[2020-10-30] MEDS: clindamycin 600mg/D5W 50ml 50 ML IV SCH ×3 (09:26→23:14)
[2020-10-30] MEDS: nicotine 21mg patch - 24 hr TD SCH (09:26)
[2020-10-30] MEDS: Dakins solution (1/4 strength) 473ml solution TP SCH ×2 (09:34→19:02)
[2020-10-30] MEDS: chromic chloride inj. 5 MCG, ZINC/COPPER/MANGANESE/SELENIUM 0.5 ML in AA 5%/CALCIUM/LYT... IV SCH ×2 (09:55→19:01)
[2020-10-30] MEDS: normal saline 1000ml 1,000 ML IV SCH ×2 (12:04→23:14)
[2020-10-30] MEDS: HYDROcodone/acetaminophen 10/325mg tab PO PRN ×2 (12:05→19:36)
--- NOTE | 2020-10-30 12:12 | NUR ---
Dr. Augustine paged: Re [phone] Ian Jean. Blood consent needs signed by you please. Thanks Ankur [phone]
[2020-10-30 12:18] VITALS: BP 126/61
--- NOTE | 2020-10-30 13:45 | NUR ---
Started first unit of PRBC at 1345 per MD order. Two RN verification. Per blood bank computer verication unavailable with unit of PRBC. VS as follows: T-98.6, MN-89, RR 14, BP 130/69. Pt educated on S/S of reaction, Pt verbally understood.
[2020-10-30] MEDS: cetirizine 10mg tablet PO SCH (13:55)
[2020-10-30 15:00] VITALS: BP 117/61
[2020-10-30] MEDS: octreotide inj. 1,250 MCG in normal saline 250ml IV soln 243.75 ML IV SCH (17:47)
[2020-10-30 18:00] VITALS: BP 111/60
--- NOTE | 2020-10-30 18:16 | NUR ---
Orientee documentation: I have reviewed and agree with all interventions, assessments performed and documented by LANE Pretty.
--- NOTE | 2020-10-30 18:17 | NUR ---
Orientee Medication Administration: For this medication-pass time frame, all medication were reviewed, dispensed, administered and documented per hospital policy by LANE Pretty.
--- NOTE | 2020-10-30 18:17 | NUR ---
Problems reprioritized. Patient report given, questions answered & plan of care reviewed with Wan SHERMAN.
--- NOTE | 2020-10-30 18:17 | NUR ---
Problems reprioritized. Patient report given, questions answered & plan of care reviewed with LANE Blas. Pt sitting up watching tv comfortably at change of shift. All pt needs met at this time.
[2020-10-30] MEDS: fat emulsion 20% inj. 100 ML IV SCH (19:01)
[2020-10-30] MEDS: naphazoline/pheniramine eye 1 DROP BOTTLE EACHEYE PRN (19:02)
[2020-10-30] MEDS: insulin glargine (Lantus) pen - multi-dose SQ SCH (19:17)
[2020-10-30 19:38] LABS: HEMOGLOBIN 8.8 g/dl (12.0-16.0); MEAN CORPUSCULAR HEMOGLOBIN 31.2 PG (27.0-31.0); MEAN CORPUSCULAR VOLUME 91.7 FL (78-98); MEAN PLATELET VOLUME 6.1 FL (7.4-10.4); PLATELET COUNT 296 X10'3 (140-440); RED BLOOD COUNT 2.83 X10'6 (4.20-5.60); RED CELL DISTRIBUTION WIDTH 15.4 % (11.5-14.5); WHITE BLOOD COUNT 4.7 X10'3 (4.5-11.0)
[2020-10-30 22:00] VITALS: BP 99/54
[2020-10-31 02:00] VITALS: BP 117/75
[2020-10-31] MEDS: diphenoxylate/atropine tablet (Lomotil) PO SCH ×4 (02:02→20:50)
[2020-10-31] MEDS: HYDROcodone/acetaminophen 10/325mg tab PO PRN ×3 (02:11→23:37)
[2020-10-31] MEDS: LORazepam 0.5 MG tablet PO PRN ×2 (02:11→23:36)
[2020-10-31] MEDS: insulin regular, human U-100 3ml vial - multi-dose SQ SCH ×3 (03:03→15:14)
[2020-10-31 04:57] LABS: EOSINOPHILS # (AUTO) 0.2 X10'3 (0-0.9); EOSINOPHILS % (AUTO) 3.9 % (0-6); HEMOGLOBIN 8.1 g/dl (12.0-16.0); LYMPHOCYTES % (AUTO) 24.5 % (21-51); MEAN CORPUSCULAR HGB CONC 33.8 g/dL (33.0-36.5); MEAN CORPUSCULAR VOLUME 91.7 FL (78-98); MEAN PLATELET VOLUME 6.3 FL (7.4-10.4); MONOCYTES # (AUTO) 0.4 X10'3 (0-0.9); MONOCYTES % (AUTO) 9.8 % (2-12); NEUTROPHILS # (AUTO) 2.6 X10'3 (1.8-7.7); NEUTROPHILS % (AUTO) 60.8 % (42-75); PLATELET COUNT 264 X10'3 (140-440); RED BLOOD COUNT 2.62 X10'6 (4.20-5.60); RED CELL DISTRIBUTION WIDTH 15.5 % (11.5-14.5); WHITE BLOOD COUNT 4.3 X10'3 (4.5-11.0)
[2020-10-31 05:06] LABS: ALANINE AMINOTRANSFERASE 8 U/L (12-78); ALBUMIN 1.4 G/DL (3.4-5.0); ALBUMIN/GLOBULIN RATIO 0.3 (1.1-1.5); ALKALINE PHOSPHATASE 84 IU/L (46-116); ANION GAP 7 (8-16); ASPARTATE AMINO TRANSFERASE 10 U/L (10-37); BILIRUBIN,TOTAL 0.2 MG/DL (0.1-1.0); BLOOD UREA NITROGEN 30 MG/DL (7-18); BUN/CREATININE RATIO 20.5 (6.6-38.0); CALCIUM 7.4 MG/DL (8.5-10.1); CHLORIDE 106 MMOL/L (99-107); CREATININE 1.46 MG/DL (0.40-0.90); GLUCOSE 183 MG/DL (70-104); POTASSIUM 4.2 MMOL/L (3.5-5.1); SODIUM 137 MMOL/L (135-145); TOTAL CARBON DIOXIDE 23.9 MMOL/L (24-32); TOTAL PROTEIN 5.9 G/DL (6.4-8.2); eGFR 37 ML/MIN
[2020-10-31 06:00] VITALS: BP 115/48
--- NOTE | 2020-10-31 06:17 | NUR ---
Patient in room PCU 3011. I have received report from LANE Blas and had the opportunity to ask questions and assume patient care.
--- NOTE | 2020-10-31 06:22 | NUR ---
Patient in room PCU 3011. I have received report from Wan SHERMAN and had the opportunity to ask questions and assume patient care.
[2020-10-31] MEDS: K and/or MAG REPLACEMENT MC SCH ×2 (08:00→20:00)
[2020-10-31] MEDS: cetirizine 10mg tablet PO SCH (08:31)
[2020-10-31] MEDS: pantoprazole 40mg Tablet.DR PO SCH (08:31)
[2020-10-31] MEDS: nicotine 21mg patch - 24 hr TD SCH (08:31)
[2020-10-31] MEDS: clindamycin 600mg/D5W 50ml 50 ML IV SCH ×2 (08:32→15:07)
[2020-10-31] MEDS: Dakins solution (1/4 strength) 473ml solution TP SCH ×2 (08:36→20:00)
[2020-10-31] MEDS: chromic chloride inj. 5 MCG, ZINC/COPPER/MANGANESE/SELENIUM 0.5 ML in AA 5%/CALCIUM/LYT... IV SCH ×2 (08:41→21:46)
[2020-10-31 08:53] LABS: OCCULT BLOOD STOOL NEGATIVE (Neg)
[2020-10-31] MEDS: heparin, porcine 5000 units/ml vial SQ SCH ×2 (08:57→20:50)
[2020-10-31] MEDS: morphine 2 MG/ML inj. syringe IV PRN ×2 (08:58→20:49)
[2020-10-31] MEDS: MVI, adult No.4 with vit. K 10 ML in dextrose 5% water 500ml 500 ML IV SCH ×2 (10:58)
[2020-10-31 11:00] VITALS: BP 115/56
[2020-10-31] MEDS: normal saline 1000ml 1,000 ML IV SCH (14:44)
[2020-10-31 18:00] VITALS: BP 129/66
--- NOTE | 2020-10-31 18:43 | NUR ---
Orientee documentation: I have reviewed and agree with all interventions, assessments performed and documented by LANE Pretty.
--- NOTE | 2020-10-31 18:44 | NUR ---
Orientee Medication Administration: For this medication-pass time frame, all medication were reviewed, dispensed, administered and documented per hospital policy by LANE Pretty.
--- NOTE | 2020-10-31 18:45 | NUR ---
Problems reprioritized. Patient report given, questions answered & plan of care reviewed with LANE Pierce. Pt laying in bed resting comfortably, watching tv at change of shift. No signs of distress noted at change of shift.
[2020-10-31 18:54] LABS: PARTIAL THROMBOPLASTIN TIME 27 SECONDS (22-32)
[2020-10-31] MEDS: dextrose 50%-water 50ml dispensing syringe IV PRN (20:47)
[2020-10-31] MEDS: diphenhydrAMINE 25mg capsule PO PRN (20:51)
[2020-10-31] MEDS: insulin glargine (Lantus) pen - multi-dose SQ SCH (21:00)
[2020-10-31] MEDS: fat emulsion 20% inj. 100 ML IV SCH (21:45)
[2020-10-31 22:00] VITALS: BP 135/70
[2020-10-31] MEDS: opium/belladonna alkaloids No. 15A 30mg rectal suppository RC PRN (23:31)
[2020-11-01] MEDS: clindamycin 600mg/D5W 50ml 50 ML IV SCH ×4 (00:50→23:05)
[2020-11-01] MEDS: morphine 2 MG/ML inj. syringe IV PRN ×4 (00:52→22:20)
[2020-11-01 02:00] VITALS: BP 133/69
[2020-11-01] MEDS: naphazoline/pheniramine eye 1 DROP BOTTLE EACHEYE PRN (02:26)
[2020-11-01] MEDS: diphenoxylate/atropine tablet (Lomotil) PO SCH ×4 (02:34→20:37)
[2020-11-01] MEDS: normal saline 1000ml 1,000 ML IV SCH ×2 (04:59→16:30)
[2020-11-01 05:12] LABS: BASOPHILS # (AUTO) 0.1 X10'3 (0-0.2); BASOPHILS % (AUTO) 1.1 % (0-1); EOSINOPHILS # (AUTO) 0.2 X10'3 (0-0.9); EOSINOPHILS % (AUTO) 3.4 % (0-6); HEMATOCRIT 24.1 % (35.0-45.0); HEMOGLOBIN 8.3 g/dl (12.0-16.0); LYMPHOCYTES % (AUTO) 20.6 % (21-51); MEAN CORPUSCULAR HEMOGLOBIN 31.3 PG (27.0-31.0); MEAN CORPUSCULAR HGB CONC 34.3 g/dL (33.0-36.5); MEAN CORPUSCULAR VOLUME 91.1 FL (78-98); MEAN PLATELET VOLUME 6.3 FL (7.4-10.4); MONOCYTES # (AUTO) 0.4 X10'3 (0-0.9); NEUTROPHILS # (AUTO) 3.3 X10'3 (1.8-7.7); NEUTROPHILS % (AUTO) 65.9 % (42-75); PLATELET COUNT 220 X10'3 (140-440); RED BLOOD COUNT 2.65 X10'6 (4.20-5.60); RED CELL DISTRIBUTION WIDTH 15.2 % (11.5-14.5)
[2020-11-01 05:13] LABS: PARTIAL THROMBOPLASTIN TIME 23 SECONDS (22-32)
[2020-11-01 05:20] LABS: ALANINE AMINOTRANSFERASE 7 U/L (12-78); ALBUMIN 1.4 G/DL (3.4-5.0); ALBUMIN/GLOBULIN RATIO 0.3 (1.1-1.5); ALKALINE PHOSPHATASE 89 IU/L (46-116); ANION GAP 6 (8-16); ASPARTATE AMINO TRANSFERASE 9 U/L (10-37); BILIRUBIN,TOTAL 0.2 MG/DL (0.1-1.0); BLOOD UREA NITROGEN 24 MG/DL (7-18); BUN/CREATININE RATIO 17.1 (6.6-38.0); CALCIUM 7.4 MG/DL (8.5-10.1); CHLORIDE 107 MMOL/L (99-107); GLUCOSE 188 MG/DL (70-104); MAGNESIUM 1.4 MG/DL (1.5-2.4); POTASSIUM 4.6 MMOL/L (3.5-5.1); PREALBUMIN 12.6 MG/DL (19-36); SODIUM 137 MMOL/L (135-145); TOTAL CARBON DIOXIDE 24.1 MMOL/L (24-32); TOTAL PROTEIN 6.2 G/DL (6.4-8.2); TRIGLYCERIDES 123 MG/DL (20-135); eGFR 38 ML/MIN
[2020-11-01 06:00] VITALS: BP 118/54
--- NOTE | 2020-11-01 06:11 | NUR ---
Patient in room PCU 3011. I have received report from Kari SHERMAN and had the opportunity to ask questions and assume patient care.
--- NOTE | 2020-11-01 06:19 | NUR ---
Patient in room PCU 3011. I have received report from LANE Pierce and had the opportunity to ask questions and assume patient care.
[2020-11-01] MEDS: heparin, porcine 5000 units/ml vial SQ SCH ×2 (08:00→20:38)
[2020-11-01] MEDS: K and/or MAG REPLACEMENT MC SCH ×2 (08:00→20:11)
[2020-11-01] MEDS: nicotine 21mg patch - 24 hr TD SCH (08:15)
[2020-11-01] MEDS: cetirizine 10mg tablet PO SCH (08:15)
[2020-11-01] MEDS: pantoprazole 40mg Tablet.DR PO SCH (08:15)
[2020-11-01] MEDS: insulin regular, human U-100 3ml vial - multi-dose SQ SCH ×2 (08:19→21:05)
[2020-11-01] MEDS: Dakins solution (1/4 strength) 473ml solution TP SCH ×2 (08:20→20:38)
[2020-11-01] MEDS: opium/belladonna alkaloids No. 15A 30mg rectal suppository RC PRN ×2 (09:56→20:38)
[2020-11-01 11:00] VITALS: BP 138/61
[2020-11-01] MEDS: chromic chloride inj. 5 MCG, ZINC/COPPER/MANGANESE/SELENIUM 0.5 ML in AA 5%/CALCIUM/LYT... IV SCH ×2 (11:03→23:16)
--- NOTE | 2020-11-01 11:45 | NUR ---
F/u 11/01: Pt continues tolerating TPN at goal to OR today for high output enterocutaneous fistula per EMR. Ileostomy output -100ml past 24 hours per EMR receiving lomotil Q6H and NPO. Noted pt receiving NS at 75ml/hr in addition to TPN; may benefit from wean NS given TPN containing electrolytes as medically indicated. PALB 12.2 down from 16.6 prior though likely impacted by high output fistula. Noted ht changed from 65 to 77in; true ht 65in; RD d/w RN regarding updating ht in EMR. Will monitor for TPN tolerance and adjustment needs post-op. Recommendations: 1) TPN via PICC per MD using 2:1 Clinimix-E 5/20 at 80ml/hr goal with 75ml separate 20% intralipids to run 12 hours each day. To provide 2040ml volume 96g AA, 384g DEX (2.62mg/kg/min), 15g lipids(meeting EFA needs), and 1840total kcals. 2) PALB/TG q /; daily wts 3) Monitor for PN tolerance 4) Advance to CHO controlled.low-residue diet post-op as medically indicated 5) Bowel care per rx; antidiarrheal per MD 6) F/u verbal DM and protein educations once PO diet and appropriate Addendum: 11/01/20 at [address] Amended: Links added.
[2020-11-01 14:05] VITALS: BP 132/61
[2020-11-01] MEDS: HYDROcodone/acetaminophen 10/325mg tab PO PRN (16:30)
--- NOTE | 2020-11-01 17:43 | NUR ---
Spoke with LANE Prather in the OR. Pt will go to OR 11/02/20 around 1130.
[2020-11-01 18:00] VITALS: BP 134/53
--- NOTE | 2020-11-01 18:17 | NUR ---
Problems reprioritized. Patient report given, questions answered & plan of care reviewed with Mj SHERMAN.
--- NOTE | 2020-11-01 18:37 | NUR ---
Problems reprioritized. Patient report given, questions answered & plan of care reviewed with LANE Barker. Pt sleeping comfortably at change of shift, no signs of distress.
--- NOTE | 2020-11-01 18:46 | NUR ---
Patient in room PCU 3011. I have received report from evelia hunt and had the opportunity to ask questions and assume patient care.
[2020-11-01] MEDS ORDERED: ringers solution, lacted 1,000 ML IV ONE (19:50)
[2020-11-01] MEDS: fat emulsion 20% inj. 100 ML IV SCH (20:37)
[2020-11-01] MEDS: octreotide inj. 1,250 MCG in normal saline 250ml IV soln 243.75 ML IV SCH (20:39)
[2020-11-01] MEDS: insulin glargine (Lantus) pen - multi-dose SQ SCH (21:00)
[2020-11-01 22:00] VITALS: BP 132/72
--- NOTE | 2020-11-01 22:19 | NUR ---
lantus not given doing q 6 glucose checks and administering Humulin r
[2020-11-02] VITALS (25 sets, daily range): BP systolic 130–203; BP diastolic 69–99
--- NOTE | 2020-11-02 00:38 | NUR ---
notified stanley from lab the pt's line not drawing back, pt will need to be a stick
[2020-11-02] MEDS ORDERED: magnesium 2GM in 50ml NS 50 ML IV PRN (02:10)
[2020-11-02] MEDS ORDERED: potassium Cl 20 mEq SR tablet PO PRN (02:10)
[2020-11-02] MEDS ORDERED: potassium Cl 40MEQ/1/2NS 520ml 520 ML IV PRN (02:10)
[2020-11-02] MEDS ORDERED: potassium CL 10mEq/100ml bag 100 ML IV PRN (02:10)
[2020-11-02] MEDS ORDERED: potassium Cl 20mEq/100mL bag 100 ML IV PRN (02:10)
[2020-11-02] MEDS ORDERED: magnesium 4gm in 100ml NS 100 ML IV PRN (02:10)
[2020-11-02] MEDS ORDERED: magnesium Cl slow-release 64mg tablet PO PRN (02:10)
[2020-11-02] MEDS ORDERED: potassium Cl 40MEQ/250ML bag 250 ML IV PRN (02:10)
[2020-11-02] MEDS: normal saline 1000ml 1,000 ML IV SCH ×2 (02:18→18:45)
--- NOTE | 2020-11-02 02:18 | NUR ---
sodium chloride held since lr was ordered and started in evening
[2020-11-02] MEDS: diphenoxylate/atropine tablet (Lomotil) PO SCH ×2 (02:22→09:09)
[2020-11-02] MEDS: insulin regular, human U-100 3ml vial - multi-dose SQ SCH ×3 (02:40→20:57)
[2020-11-02] MEDS: opium/belladonna alkaloids No. 15A 30mg rectal suppository RC PRN (02:48)
[2020-11-02] MEDS: morphine 2 MG/ML inj. syringe IV PRN ×4 (05:27→22:11)
--- NOTE | 2020-11-02 06:24 | NUR ---
Problems reprioritized. Patient report given, questions answered & plan of care reviewed with Lorene SHERMAN
--- NOTE | 2020-11-02 06:29 | NUR ---
Patient in room PCU 3011. I have received report from LANE Barker and had the opportunity to ask questions and assume patient care.
[2020-11-02] MEDS: pantoprazole 40mg Tablet.DR PO SCH (07:30)
[2020-11-02] MEDS: cetirizine 10mg tablet PO SCH (08:00)
[2020-11-02] MEDS: heparin, porcine 5000 units/ml vial SQ SCH ×2 (08:00→20:49)
[2020-11-02] MEDS: Dakins solution (1/4 strength) 473ml solution TP SCH ×2 (08:00→20:49)
[2020-11-02] MEDS: K and/or MAG REPLACEMENT MC SCH ×2 (08:00→20:00)
[2020-11-02 08:26] LABS: BASOPHILS % (AUTO) 0.6 % (0-1); EOSINOPHILS # (AUTO) 0.2 X10'3 (0-0.9); EOSINOPHILS % (AUTO) 3.4 % (0-6); HEMATOCRIT 26.7 % (35.0-45.0); HEMOGLOBIN 9.2 g/dl (12.0-16.0); LYMPHOCYTES # (AUTO) 0.9 X10'3 (1.1-4.8); LYMPHOCYTES % (AUTO) 19.5 % (21-51); MEAN CORPUSCULAR HEMOGLOBIN 31.4 PG (27.0-31.0); MEAN CORPUSCULAR HGB CONC 34.5 g/dL (33.0-36.5); MEAN PLATELET VOLUME 6.1 FL (7.4-10.4); MONOCYTES # (AUTO) 0.4 X10'3 (0-0.9); MONOCYTES % (AUTO) 8.4 % (2-12); NEUTROPHILS # (AUTO) 3.3 X10'3 (1.8-7.7); NEUTROPHILS % (AUTO) 68.1 % (42-75); PLATELET COUNT 290 X10'3 (140-440); RED BLOOD COUNT 2.93 X10'6 (4.20-5.60); WHITE BLOOD COUNT 4.8 X10'3 (4.5-11.0)
[2020-11-02 08:39] LABS: PARTIAL THROMBOPLASTIN TIME 30 SECONDS (22-32)
[2020-11-02 09:02] LABS: ALANINE AMINOTRANSFERASE 9 U/L (12-78); ALBUMIN 1.5 G/DL (3.4-5.0); ALBUMIN/GLOBULIN RATIO 0.3 (1.1-1.5); ALKALINE PHOSPHATASE 97 IU/L (46-116); ANION GAP 7 (8-16); ASPARTATE AMINO TRANSFERASE 9 U/L (10-37); BILIRUBIN,TOTAL 0.2 MG/DL (0.1-1.0); BLOOD UREA NITROGEN 25 MG/DL (7-18); BUN/CREATININE RATIO 19.1 (6.6-38.0); CALCIUM 7.8 MG/DL (8.5-10.1); CHLORIDE 105 MMOL/L (99-107); CREATININE 1.31 MG/DL (0.40-0.90); GLUCOSE 141 MG/DL (70-104); MAGNESIUM 1.6 MG/DL (1.5-2.4); PHOSPHORUS 4.3 MG/DL (2.3-4.5); POTASSIUM 4.6 MMOL/L (3.5-5.1); SODIUM 136 MMOL/L (135-145); TOTAL CARBON DIOXIDE 23.9 MMOL/L (24-32); TOTAL PROTEIN 6.9 G/DL (6.4-8.2); eGFR 41 ML/MIN
[2020-11-02] MEDS: naphazoline/pheniramine eye 1 DROP BOTTLE EACHEYE PRN (09:08)
[2020-11-02] MEDS: nicotine 21mg patch - 24 hr TD SCH (09:09)
[2020-11-02] MEDS: clindamycin 600mg/D5W 50ml 50 ML IV SCH (09:10)
[2020-11-02] MEDS ORDERED: fentaNYL /PF 50mcg/ml 5ml ampule ONE (12:07)
[2020-11-02] MEDS ORDERED: MIDAZolam 1 MG/ML 5ML VIAL ONE (12:07)
[2020-11-02] MEDS ORDERED: rocuronium 10mg/ml inj IV ONE ×2 (12:08→13:32)
[2020-11-02] MEDS ORDERED: LIDOcaine 2% (20mg/ml) 5ml vial ONE (12:08)
[2020-11-02] MEDS ORDERED: propofol inj 20 ML IV ONE (12:08)
[2020-11-02] MEDS ORDERED: ondansetron/PF 4mg/2ml inj ONE (12:10)
[2020-11-02] MEDS ORDERED: BUPIVAcaine/PF 2.5mg/ml (0.25%) 10ml vial ONE (12:12)
[2020-11-02] MEDS ORDERED: BUPIVACAINE liposomal/PF 13.3 MG/ML vial IM ONE (12:12)
[2020-11-02] MEDS ORDERED: glycopyrrolate 0.2mg/ml inj ONE (12:30)
[2020-11-02] MEDS ORDERED: neostigmine methylsulfate 1 MG/ML 10ml vial ONE (12:30)
[2020-11-02] MEDS ORDERED: desflurane 240ml liquid inh. IH ONE (12:30)
[2020-11-02] MEDS ORDERED: sevoflurane 250ml liquid IH ONE (12:30)
[2020-11-02] MEDS ORDERED: dexamethasone sod phosphate 4mg/ml inj. ONE (12:54)
[2020-11-02] MEDS: chromic chloride inj. 5 MCG, ZINC/COPPER/MANGANESE/SELENIUM 0.5 ML in AA 5%/CALCIUM/LYT... IV SCH (13:04)
[2020-11-02] MEDS ORDERED: dextrose 50%-water 50ml dispensing syringe IV ONE (13:39)
[2020-11-02] MEDS ORDERED: labetalol 20mg/4ml (5mg/ml) syringe IV PRN (13:40)
[2020-11-02] MEDS ORDERED: morphine 4 MG/ML inj SYRINge IV PRN (13:40)
[2020-11-02] MEDS ORDERED: ondansetron/PF 4mg/2ml inj IV PRN (13:40)
[2020-11-02] MEDS ORDERED: fentaNYL/PF 50MCG/1 ML 2ML syringe IV PRN ×4 (13:40→15:35)
[2020-11-02] MEDS ORDERED: hydrALAZINE 20mg/ml inj. IV PRN ×2 (13:40→22:50)
[2020-11-02] MEDS ORDERED: ringers solution, lacted 1,000 ML IV SCH (13:40)
[2020-11-02] MEDS ORDERED: morphine 2 MG/ML inj. syringe IV PRN ×2 (13:40→15:35)
[2020-11-02] MEDS ORDERED: sugammadex 200mg/2ml injection IV ONE (13:54)
[2020-11-02] MEDS ORDERED: labetalol 20mg/4ml (5mg/ml) syringe IV ONE (14:41)
[2020-11-02] MEDS ORDERED: fentaNYL/PF 50MCG/1 ML 2ML syringe ONE (14:55)
--- NOTE | 2020-11-02 15:17 | NUR ---
Received from OR via BED, accompanied by Anesthesiologist KAIA and report given by Anesthesiolgist. PT. ARRIVED ON 2 L. O2 VIA MASK. AWAKE AND ALERT. 2 PICC LINES CDI. R. UPPER ARM FUNCTIONING WITH CLINIMIX AT 80 ML/HR AND LR INFUSING . LEFT UPPER ARM PICC NOT FUNCTIONING FULLY DUE TO KINK IN LINE AT INSERTION. FC DRAINING TO GRAVITY. 250 ML NOTED DARK YELLOW URINE NOTED. SCD'S IN PLACE. 02/24 PAIN. PRN PAIN MED TO BE GIVEN. PULSES PALPABLE IN ALL EXTREMITIES. GOOD CAP REFILL NOTED. MIDLINE ABD. DRESSED WITH ISLAND DRESSING COLOSTOMY IN R ABD. NOTED. Addendum: 11/02/20 at 1546 by Shirley Shields RN Amended: Links added.
[2020-11-02] MEDS: morphine 4 MG/ML inj SYRINge IV PRN ×2 (16:02→16:23)
--- NOTE | 2020-11-02 16:12 | NUR ---
PT. CONTINUES TO REPORT PAIN 02/24 IN ABDOMEN. BP ELEVATED 5 MG LABETOLOL GIVEN. Addendum: 11/02/20 at 1614 by Shirley Shields RN Amended: Links added.
--- NOTE | 2020-11-02 16:15 | NUR ---
Patient in room PCU 3011. I have received report from LANE Watson in PACU and had the opportunity to ask questions awaiting patient arrival on floor to assume patient care.
--- NOTE | 2020-11-02 17:07 | NUR ---
REPORT CALLED TO SANDRA SHERMAN ON PCU. PT. VSS. PT. CONTINUED TO HAVE PAIN 12/25. PAIN MEDS X 5 DOSES GIVEN WITH MINIMAL RESULTS VERBALLY BUT PT. WAS RELAXING AND SHUTTING HER EYES PRIOR TO DISCHARGE TO PCU. 2 DOSES OF BP MED GIVEN WITH SOME RESULTS. BP WAS IN THE 160'S. PRIOR TO DC WITH HYDRALAZINE STILL CONTINUING TO WORK. PICC IN R. UPPER ARM FUNCTIONING, CDI. CLINIMIX INFUSING ORDERED AT 80 ML/HR. LR CONTINUES ORDERED. FC DRAINING TO GRAVITY WITH DARK YELLOW URINE NOTED AT AN ADDL 250 ML FOR 500 ML TOTAL UPON DC. RN ON PCU ADVISED OF KINK IN L. UPPER ARM PICC, ALSO ADVISED OF DRAINAGE AT BASE OF ABD. DRESSING DUE TO WICKING NATURE OF THE PACKING IN THE WOUND, POSSIBLE REINFORCEMENT NEEDED. FAMILY NOTIFIED OF TRANSFER. DC CRITERIA MET WITH CONSIDERATIONS TO HISTORY OF PT. Addendum: 11/02/20 at 1729 by Shirley Shields RN Amended: Links added.
[2020-11-02] MEDS: HYDROmorphone 1 mg/ml syringe IV PRN (17:23)
[2020-11-02] MEDS: piperacillin/tazo 3.375gm/50ml 50 ML IV SCH ×2 (17:52→23:25)
--- NOTE | 2020-11-02 18:18 | NUR ---
Problems reprioritized. Patient report given, questions answered & plan of care reviewed with LANE Barker.
--- NOTE | 2020-11-02 18:31 | NUR ---
Patient in room PCU 3011. I have received report from Lorene SHERMAN and had the opportunity to ask questions and assume patient care.
--- NOTE | 2020-11-02 18:50 | NUR ---
Pt: Ted Gruber 3442w Would it be possible to get something additional for pain for pt. She is in excruciating pain post exploratory lap resection and current pain meds not working Mj RN PCU [id number]
--- NOTE | 2020-11-02 19:13 | NUR ---
asked dr young for additional pain meds over phone, said se did not want to give anything else
[2020-11-02] MEDS: fat emulsion 20% inj. 100 ML IV SCH (20:49)
[2020-11-02] MEDS: LORazepam 2 mg/ml vial IV PRN (20:50)
[2020-11-02] MEDS: insulin glargine (Lantus) pen - multi-dose SQ SCH (21:00)
--- NOTE | 2020-11-02 22:08 | NUR ---
pt having elevated bp's d/t pain
--- NOTE | 2020-11-02 22:43 | NUR ---
spoke with dr young over the telephone about getting something prn for pt's elevated bp (mostly d/t pain) MD won't give anything additional for pain but will order hydralazine q 8 hrs for sbp more than 160
--- NOTE | 2020-11-02 23:19 | NUR ---
leon tompkins, pt receiving humilin r q 6 hrs
[2020-11-03 02:10] VITALS: BP 156/82
[2020-11-03] MEDS: chromic chloride inj. 5 MCG, ZINC/COPPER/MANGANESE/SELENIUM 0.5 ML in AA 5%/CALCIUM/LYT... IV SCH ×2 (02:11→14:53)
[2020-11-03] MEDS: insulin regular, human U-100 3ml vial - multi-dose SQ SCH ×4 (02:21→21:17)
[2020-11-03] MEDS: morphine 2 MG/ML inj. syringe IV PRN ×4 (02:27→20:54)
--- NOTE | 2020-11-03 03:29 | NUR ---
spoke to mónica from lab to stick pt because line does not draw back
[2020-11-03 06:00] VITALS: BP 153/77
--- NOTE | 2020-11-03 06:04 | NUR ---
Patient in room PCU 3011. I have received report from LANE Barker and had the opportunity to ask questions and assume patient care.
--- NOTE | 2020-11-03 06:08 | NUR ---
Problems reprioritized. Patient report given, questions answered & plan of care reviewed with Lorene SHERMAN.
[2020-11-03] MEDS: pantoprazole 40mg Tablet.DR PO SCH (07:44)
[2020-11-03] MEDS: cetirizine 10mg tablet PO SCH (07:44)
[2020-11-03] MEDS: piperacillin/tazo 3.375gm/50ml 50 ML IV SCH ×2 (07:45→15:24)
[2020-11-03] MEDS: heparin, porcine 5000 units/ml vial SQ SCH ×2 (07:45→20:55)
[2020-11-03] MEDS: nicotine 21mg patch - 24 hr TD SCH (07:45)
[2020-11-03] MEDS: K and/or MAG REPLACEMENT MC SCH ×2 (08:00→20:00)
[2020-11-03 08:01] LABS: PARTIAL THROMBOPLASTIN TIME 33 SECONDS (22-32)
[2020-11-03 08:03] LABS: BASOPHILS % (AUTO) 0.1 % (0-1); EOSINOPHILS % (AUTO) 0 % (0-6); HEMATOCRIT 28.5 % (35.0-45.0); HEMOGLOBIN 9.6 g/dl (12.0-16.0); LYMPHOCYTES # (AUTO) 0.6 X10'3 (1.1-4.8); LYMPHOCYTES % (AUTO) 4.9 % (21-51); MEAN CORPUSCULAR HGB CONC 33.8 g/dL (33.0-36.5); MEAN CORPUSCULAR VOLUME 91.8 FL (78-98); MEAN PLATELET VOLUME 6.4 FL (7.4-10.4); MONOCYTES # (AUTO) 0.7 X10'3 (0-0.9); MONOCYTES % (AUTO) 5.9 % (2-12); NEUTROPHILS # (AUTO) 10.1 X10'3 (1.8-7.7); NEUTROPHILS % (AUTO) 89.1 % (42-75); PLATELET COUNT 297 X10'3 (140-440); RED BLOOD COUNT 3.11 X10'6 (4.20-5.60); RED CELL DISTRIBUTION WIDTH 15.5 % (11.5-14.5); WHITE BLOOD COUNT 11.4 X10'3 (4.5-11.0)
[2020-11-03] MEDS: normal saline 1000ml 1,000 ML IV SCH ×2 (08:10→21:25)
[2020-11-03] MEDS: Dakins solution (1/4 strength) 473ml solution TP SCH ×2 (08:10→20:55)
[2020-11-03 08:32] LABS: ALANINE AMINOTRANSFERASE 7 U/L (12-78); ALBUMIN 1.8 G/DL (3.4-5.0); ALBUMIN/GLOBULIN RATIO 0.3 (1.1-1.5); ALKALINE PHOSPHATASE 97 IU/L (46-116); ANION GAP 10 (8-16); ASPARTATE AMINO TRANSFERASE 11 U/L (10-37); BILIRUBIN,TOTAL 0.4 MG/DL (0.1-1.0); BLOOD UREA NITROGEN 27 MG/DL (7-18); BUN/CREATININE RATIO 19.1 (6.6-38.0); CALCIUM 8.3 MG/DL (8.5-10.1); CHLORIDE 102 MMOL/L (99-107); CREATININE 1.41 MG/DL (0.40-0.90); GLUCOSE 208 MG/DL (70-104); MAGNESIUM 1.6 MG/DL (1.5-2.4); PHOSPHORUS 3.4 MG/DL (2.3-4.5); POTASSIUM 4.5 MMOL/L (3.5-5.1); SODIUM 133 MMOL/L (135-145); TOTAL CARBON DIOXIDE 21.3 MMOL/L (24-32); eGFR 38 ML/MIN
[2020-11-03] MEDS: MVI, adult No.4 with vit. K 10 ML in dextrose 5% water 500ml 500 ML IV SCH ×2 (10:52)
[2020-11-03 11:00] VITALS: BP 135/74
[2020-11-03] MEDS: LORazepam 2 mg/ml vial IV PRN (12:29)
[2020-11-03 15:00] VITALS: BP 136/82
[2020-11-03] MEDS: HYDROmorphone 1 mg/ml syringe IV PRN (15:22)
[2020-11-03] MEDS: opium/belladonna alkaloids No. 15A 30mg rectal suppository RC PRN (16:36)
[2020-11-03 18:00] VITALS: BP 131/76
--- NOTE | 2020-11-03 18:29 | NUR ---
Problems reprioritized. Patient report given, questions answered & plan of care reviewed with LANE Green.
[2020-11-03] MEDS: insulin glargine (Lantus) pen - multi-dose SQ SCH (20:50)
[2020-11-03] MEDS: fat emulsion 20% inj. 100 ML IV SCH (20:54)
[2020-11-03 22:00] VITALS: BP 157/80
[2020-11-04] MEDS: piperacillin/tazo 3.375gm/50ml 50 ML IV SCH ×3 (00:05→16:00)
[2020-11-04] MEDS: LORazepam 2 mg/ml vial IV PRN (00:10)
[2020-11-04] MEDS: HYDROmorphone 1 mg/ml syringe IV PRN ×5 (00:11→21:36)
[2020-11-04] MEDS: insulin regular, human U-100 3ml vial - multi-dose SQ SCH ×3 (02:09→14:59)
[2020-11-04] MEDS: morphine 2 MG/ML inj. syringe IV PRN ×4 (02:09→18:55)
[2020-11-04 02:13] VITALS: BP 128/67
[2020-11-04] MEDS: chromic chloride inj. 5 MCG, ZINC/COPPER/MANGANESE/SELENIUM 0.5 ML in AA 5%/CALCIUM/LYT... IV SCH ×2 (02:25→14:39)
[2020-11-04] MEDS: opium/belladonna alkaloids No. 15A 30mg rectal suppository RC PRN (02:26)
--- NOTE | 2020-11-04 06:33 | NUR ---
Patient in room PCU 3011. I have received report from Norma SHERMAN and had the opportunity to ask questions and assume patient care.
[2020-11-04 07:00] VITALS: BP 111/57
--- NOTE | 2020-11-04 07:00 | NUR ---
Patient in room PCU 3011. I have received report from denise Gudino and had the opportunity to ask questions and assume patient care.
[2020-11-04] MEDS: nicotine 21mg patch - 24 hr TD SCH (07:18)
[2020-11-04] MEDS: pantoprazole 40mg Tablet.DR PO SCH (07:18)
[2020-11-04] MEDS: cetirizine 10mg tablet PO SCH (07:18)
[2020-11-04] MEDS: heparin, porcine 5000 units/ml vial SQ SCH ×2 (07:18→20:30)
[2020-11-04] MEDS: K and/or MAG REPLACEMENT MC SCH ×2 (08:00→20:00)
[2020-11-04] MEDS: Dakins solution (1/4 strength) 473ml solution TP SCH ×2 (08:00→20:30)
[2020-11-04 08:19] LABS: BASOPHILS # (AUTO) 0.1 X10'3 (0-0.2); BASOPHILS % (AUTO) 0.7 % (0-1); EOSINOPHILS # (AUTO) 0.1 X10'3 (0-0.9); EOSINOPHILS % (AUTO) 1.8 % (0-6); HEMATOCRIT 26.1 % (35.0-45.0); HEMOGLOBIN 8.9 g/dl (12.0-16.0); LYMPHOCYTES # (AUTO) 1.2 X10'3 (1.1-4.8); LYMPHOCYTES % (AUTO) 15.7 % (21-51); MEAN CORPUSCULAR HEMOGLOBIN 31.5 PG (27.0-31.0); MEAN CORPUSCULAR HGB CONC 33.9 g/dL (33.0-36.5); MEAN CORPUSCULAR VOLUME 92.7 FL (78-98); MEAN PLATELET VOLUME 6.3 FL (7.4-10.4); MONOCYTES # (AUTO) 0.5 X10'3 (0-0.9); NEUTROPHILS # (AUTO) 5.8 X10'3 (1.8-7.7); NEUTROPHILS % (AUTO) 74.8 % (42-75); PLATELET COUNT 266 X10'3 (140-440); RED BLOOD COUNT 2.82 X10'6 (4.20-5.60); RED CELL DISTRIBUTION WIDTH 15.9 % (11.5-14.5); WHITE BLOOD COUNT 7.7 X10'3 (4.5-11.0)
[2020-11-04 08:27] LABS: ALANINE AMINOTRANSFERASE 12 U/L (12-78); ALBUMIN 1.6 G/DL (3.4-5.0); ALBUMIN/GLOBULIN RATIO 0.3 (1.1-1.5); ALKALINE PHOSPHATASE 98 IU/L (46-116); ANION GAP 5 (8-16); BILIRUBIN,TOTAL 0.4 MG/DL (0.1-1.0); BLOOD UREA NITROGEN 26 MG/DL (7-18); BUN/CREATININE RATIO 18.7 (6.6-38.0); CALCIUM 7.8 MG/DL (8.5-10.1); CHLORIDE 104 MMOL/L (99-107); CREATININE 1.39 MG/DL (0.40-0.90); GLUCOSE 117 MG/DL (70-104); MAGNESIUM 1.7 MG/DL (1.5-2.4); SODIUM 135 MMOL/L (135-145); TOTAL CARBON DIOXIDE 25.8 MMOL/L (24-32); TOTAL PROTEIN 6.8 G/DL (6.4-8.2); eGFR 39 ML/MIN
[2020-11-04 08:32] LABS: ASPARTATE AMINO TRANSFERASE 25 U/L (10-37)
[2020-11-04] MEDS: normal saline 1000ml 1,000 ML IV SCH (10:45)
[2020-11-04 11:00] VITALS: BP 135/65
--- NOTE | 2020-11-04 14:26 | NUR ---
F/u 11/04: Pt continues to tolerate TPN at goal w/ PO diet advanced to clear liquids today per MD PO pending. Pt s/p ex lap, small bowel resection w/ resection of enterocutaneous fistula and region of multiple incisional hernias per MD note. Gas and stool out of Ileostomy w/ stool volume pending per EMR. Will monitor for PO diet advancement and tolerance post-op. Recommendations: 1) TPN via PICC per MD using 2:1 Clinimix-E 10/04 at 80ml/hr goal with 75ml separate 20% intralipids to run 12 hours each day. To provide 2040ml volume 96g AA, 384g DEX (2.62mg/kg/min), 15g lipids(meeting EFA needs), and 1840total kcals. 2) PALB/TG q /; daily wts 3) Advance to CHO controlled/low-residue diet post-op as medically indicated 4) Bowel care per rx 5) Wean PN IF PO diet tolerance once advances post-op 6) F/u verbal DM and protein educations once PO diet and appropriate Addendum: 11/04/20 at [address] Amended: Links added.
[2020-11-04 15:00] VITALS: BP 112/62
[2020-11-04 18:00] VITALS: BP 149/68
--- NOTE | 2020-11-04 18:10 | NUR ---
Orientee documentation: I have reviewed and agree with all interventions, assessments performed and documented by Pedro RN. Orientee Medication Administration: For this medication-pass time frame, all medication were reviewed, dispensed, administered and documented per hospital policy by Pedro RN.
--- NOTE | 2020-11-04 18:10 | NUR ---
Problems reprioritized. Patient report given, questions answered & plan of care reviewed with Norma SHERMAN.
[2020-11-04] MEDS: insulin glargine (Lantus) pen - multi-dose SQ SCH (18:23)
[2020-11-04] MEDS: hydrOXYzine 25 MG tablet PO PRN (18:55)
[2020-11-04] MEDS: fat emulsion 20% inj. 100 ML IV SCH (20:00)
--- NOTE | 2020-11-04 20:00 | NUR ---
PAGER ID: [phone] MESSAGE: Room 3011 Ted is shivering and states she feels cold all over. Warm blankets applied.O2 was 80% RA. 8L applied. BS 92. HR 140 Temp 99.6. This is the first day pt has been on clear liquids. Lactic and CBC would be appreciated. Norma [id number].
[2020-11-04 21:42] VITALS: BP 154/56
[2020-11-05] VITALS (11 sets, daily range): BP systolic 99–203; BP diastolic 52–106
[2020-11-05] MEDS: morphine 2 MG/ML inj. syringe IV PRN ×3 (00:25→14:04)
[2020-11-05] MEDS: LORazepam 2 mg/ml vial IV PRN (00:25)
[2020-11-05] MEDS: normal saline 1000ml 1,000 ML IV SCH ×3 (00:25→23:43)
[2020-11-05] MEDS: piperacillin/tazo 3.375gm/50ml 50 ML IV SCH ×4 (00:25→23:34)
[2020-11-05] MEDS: HYDROmorphone 1 mg/ml syringe IV PRN ×3 (02:09→19:39)
--- NOTE | 2020-11-05 02:24 | NUR ---
PAGER ID: [phone] MESSAGE: Lynne Jean hr is maintaining 120's since 10PM. Prior to cold episode, hr was 90's-110's. During episode HR was 140's. Any new orders? ThanksNorma [id number] Addendum: 11/05/20 at 0444 by Norma ESPINAL RN New orders received for clonidine .1 x1 po. Dose held due to HR decreasing to 110's and SBP 111.
[2020-11-05] MEDS ORDERED: cloNIDine 0.1 mg tablet PO ONE (02:30)
[2020-11-05] MEDS: chromic chloride inj. 5 MCG, ZINC/COPPER/MANGANESE/SELENIUM 0.5 ML in AA 5%/CALCIUM/LYT... IV SCH (03:44)
[2020-11-05] MEDS: acetaminophen 325mg tablet PO PRN ×2 (06:39→16:04)
--- NOTE | 2020-11-05 06:43 | NUR ---
[facility] [id number]. PT LYN MARTIN 3011, CURRENTLY FEBRILE 100.6, SHAKING AND hr IS 130-140. administered Tylenol, no PRNs for HR, had similar episode in middle of night per NOC RN. Please advise
--- NOTE | 2020-11-05 06:50 | NUR ---
New order from Dr Cas BAILEY Cardizem 120 mg BID first dose now
--- NOTE | 2020-11-05 07:03 | NUR ---
Patient in room PCU 3011. I have received report from Norma SHERMAN and had the opportunity to ask questions and assume patient care.
[2020-11-05] MEDS: diltiazem CD 120mg capsule (once-daily) PO SCH ×3 (07:04→19:37)
--- NOTE | 2020-11-05 07:08 | NUR ---
PAGER ID: [phone] MESSAGE: [facility] [id number]. PT LYN MARTIN 3011, PT HAVING EPISODE OF SHAKINESS, FEBRILE, HR 148, BP 203/103. HYDRALAZINE GIVEN, NEW ORDER FOR CARDIZEM 120 PO FROM MAGU GIVEN, DESATING TO 80S, PUT ON 5L O2, WILL MONITOR CLOSELY
[2020-11-05 07:09] LABS: BASOPHILS % (AUTO) 0.6 % (0-1); EOSINOPHILS # (AUTO) 0.1 X10'3 (0-0.9); EOSINOPHILS % (AUTO) 1.5 % (0-6); HEMATOCRIT 32.5 % (35.0-45.0); MEAN CORPUSCULAR HEMOGLOBIN 32.1 PG (27.0-31.0); MEAN CORPUSCULAR HGB CONC 33.8 g/dL (33.0-36.5); MEAN CORPUSCULAR VOLUME 94.8 FL (78-98); MEAN PLATELET VOLUME 6.2 FL (7.4-10.4); MONOCYTES # (AUTO) 0.2 X10'3 (0-0.9); MONOCYTES % (AUTO) 2.9 % (2-12); NEUTROPHILS # (AUTO) 6.5 X10'3 (1.8-7.7); PLATELET COUNT 306 X10'3 (140-440); RED BLOOD COUNT 3.43 X10'6 (4.20-5.60); RED CELL DISTRIBUTION WIDTH 16.6 % (11.5-14.5); WHITE BLOOD COUNT 7.9 X10'3 (4.5-11.0)
--- NOTE | 2020-11-05 07:17 | NUR ---
NEW ORDERS FROM NEPO FOR BLOOD CULTURES AND START ZOSYN EARLY
[2020-11-05 07:30] LABS: ALANINE AMINOTRANSFERASE 16 U/L (12-78); ALBUMIN/GLOBULIN RATIO 0.3 (1.1-1.5); ALKALINE PHOSPHATASE 242 IU/L (46-116); ANION GAP 11 (8-16); ASPARTATE AMINO TRANSFERASE 19 U/L (10-37); BILIRUBIN,TOTAL 0.7 MG/DL (0.1-1.0); BLOOD UREA NITROGEN 30 MG/DL (7-18); CALCIUM 8.1 MG/DL (8.5-10.1); CHLORIDE 100 MMOL/L (99-107); CREATININE 1.87 MG/DL (0.40-0.90); GLUCOSE 109 MG/DL (70-104); MAGNESIUM 1.7 MG/DL (1.5-2.4); PHOSPHORUS 4.1 MG/DL (2.3-4.5); POTASSIUM 5.4 MMOL/L (3.5-5.1); SODIUM 134 MMOL/L (135-145); TOTAL CARBON DIOXIDE 22.7 MMOL/L (24-32); TOTAL PROTEIN 8.1 G/DL (6.4-8.2); eGFR 27 ML/MIN
[2020-11-05] MEDS: K and/or MAG REPLACEMENT MC SCH ×2 (08:00→20:00)
[2020-11-05] MEDS: nicotine 21mg patch - 24 hr TD SCH (08:00)
[2020-11-05] MEDS: Dakins solution (1/4 strength) 473ml solution TP SCH ×2 (08:00→19:37)
[2020-11-05] MEDS ORDERED: vancomycin/NS 1 GM ADD-VANTAGE 250 ML X 1 DOSE IV ONE ×2 (09:00→10:00)
[2020-11-05] MEDS: pantoprazole 40mg Tablet.DR PO SCH (09:39)
[2020-11-05] MEDS: cetirizine 10mg tablet PO SCH (09:39)
[2020-11-05] MEDS: heparin, porcine 5000 units/ml vial SQ SCH ×2 (09:40→19:37)
--- NOTE | 2020-11-05 09:45 | NUR ---
NEW VERBAL ORDER FROM DR RAYMOND FOR K-EXCULATE
[2020-11-05] MEDS ORDERED: sodium polystyrene sulfonate 15gm/60ml oral suspension PO ONE (09:55)
[2020-11-05] MEDS: diatr meglu/diatrizoate 30ml oral sol.-(3 dose) bottle PO SCH ×3 (13:29→18:49)
--- NOTE | 2020-11-05 13:52 | NUR ---
Late entry: Verbal orders from Dr. Augustine yesterday 11/04/20 at 1100 to advance diet to clears and wean off TPN, Addendum: 11/05/20 at 1356 by Bárbara Crowley RN TPN reduced to half dose per protocol at 1430, and blood sugar to be checked six hours later at 2030. Report given to RACHELLE SHERMAN at transfer of care, all questions answered. Diet to be further advanced when further orders are received.
[2020-11-05] MEDS: HYDROcodone/acetaminophen 10/325mg tab PO PRN (16:54)
--- NOTE | 2020-11-05 18:28 | NUR ---
ORIENTEE documentation: I have reviewed and agree with all interventions, assessments performed and documented by Pedro SHERMAN.
--- NOTE | 2020-11-05 18:28 | NUR ---
Problems reprioritized. Patient report given, questions answered & plan of care reviewed with Norma Gudino.
[2020-11-05] MEDS: lactobacillus rhamnosus 10,000 MMU CELLS/CAPSULE PO SCH (19:36)
[2020-11-05] MEDS: magnesium hydroxide 30ml (MOM) UD suspension PO SCH (19:37)
[2020-11-05] MEDS: insulin glargine (Lantus) pen - multi-dose SQ SCH (21:00)
[2020-11-06 03:24] VITALS: BP 109/56
[2020-11-06] MEDS: HYDROmorphone 1 mg/ml syringe IV PRN ×2 (03:37→11:14)
[2020-11-06 06:00] VITALS: BP 107/65
--- NOTE | 2020-11-06 06:19 | NUR ---
Patient in room PCU 3011. I have received report from Norma SHERMAN and had the opportunity to ask questions and assume patient care.
--- NOTE | 2020-11-06 06:30 | NUR ---
Patient in room PCU 3011. I have received report from Norma Gudino and had the opportunity to ask questions and assume patient care.
[2020-11-06] MEDS: piperacillin/tazo 3.375gm/50ml 50 ML IV SCH (07:19)
[2020-11-06] MEDS: cetirizine 10mg tablet PO SCH (07:19)
[2020-11-06] MEDS: nicotine 21mg patch - 24 hr TD SCH (07:19)
[2020-11-06] MEDS: lactobacillus rhamnosus 10,000 MMU CELLS/CAPSULE PO SCH (07:19)
[2020-11-06] MEDS: HYDROcodone/acetaminophen 10/325mg tab PO PRN (07:20)
[2020-11-06] MEDS: pantoprazole 40mg Tablet.DR PO SCH (07:20)
[2020-11-06 07:21] LABS: ALBUMIN 1.8 G/DL (3.4-5.0); ANION GAP 12 (8-16); BLOOD UREA NITROGEN 27 MG/DL (7-18); BUN/CREATININE RATIO 14.1 (6.6-38.0); CHLORIDE 103 MMOL/L (99-107); CREATININE 1.92 MG/DL (0.40-0.90); GLUCOSE 102 MG/DL (70-104); POTASSIUM 3.8 MMOL/L (3.5-5.1); SODIUM 138 MMOL/L (135-145); TOTAL CARBON DIOXIDE 23.1 MMOL/L (24-32); eGFR 27 ML/MIN
[2020-11-06] MEDS: heparin, porcine 5000 units/ml vial SQ SCH (07:21)
[2020-11-06] MEDS: Dakins solution (1/4 strength) 473ml solution TP SCH (07:21)
[2020-11-06] MEDS: magnesium hydroxide 30ml (MOM) UD suspension PO SCH (08:00)
[2020-11-06] MEDS: K and/or MAG REPLACEMENT MC SCH (08:00)
[2020-11-06] MEDS: diltiazem CD 120mg capsule (once-daily) PO SCH (08:00)
[2020-11-06] MEDS ORDERED: vancomycin/NS 1 GM ADD-VANTAGE 250 ML X 1 DOSE IV SCH (09:00)
[2020-11-06 10:04] LABS: BASOPHILS % (AUTO) 0.5 % (0-1); EOSINOPHILS # (AUTO) 0.2 X10'3 (0-0.9); EOSINOPHILS % (AUTO) 4.2 % (0-6); HEMATOCRIT 27.8 % (35.0-45.0); HEMOGLOBIN 9.4 g/dl (12.0-16.0); LYMPHOCYTES # (AUTO) 0.7 X10'3 (1.1-4.8); LYMPHOCYTES % (AUTO) 12.8 % (21-51); MEAN CORPUSCULAR HEMOGLOBIN 31.4 PG (27.0-31.0); MEAN CORPUSCULAR HGB CONC 33.9 g/dL (33.0-36.5); MEAN CORPUSCULAR VOLUME 92.7 FL (78-98); MEAN PLATELET VOLUME 6.5 FL (7.4-10.4); MONOCYTES # (AUTO) 0.3 X10'3 (0-0.9); MONOCYTES % (AUTO) 6.1 % (2-12); NEUTROPHILS # (AUTO) 4.2 X10'3 (1.8-7.7); NEUTROPHILS % (AUTO) 76.4 % (42-75); PLATELET COUNT 225 X10'3 (140-440); RED CELL DISTRIBUTION WIDTH 16.2 % (11.5-14.5); WHITE BLOOD COUNT 5.4 X10'3 (4.5-11.0)
[2020-11-06 11:00] VITALS: BP 110/65
--- NOTE | 2020-11-06 12:25 | NUR ---
PT LYN MARTIN 3011. PER LAB - POSITIVE BLOOD CULTURES FROM LEFT HAND DRAWN 11/05, POSITIVE AT 24.21 HRS - GRAM NEGATIVE RODS. CHACHA BENAVIDES
--- NOTE | 2020-11-06 15:10 | NUR ---
Pt transferred to [facility]. Report called to Andreia SHERMAN all questions were answered.
--- NOTE | 2020-11-06 17:14 | NUR ---
PT TRANSPORTED TO [facility] BY PIYUSH CARGO VIA GURNEY, WHEELED OUT TO [facility] BY [facility] STAFF. ALL BELONGINGS COLLECTED AND SENT WITH PATIENT.
--- NOTE | 2020-11-06 17:15 | NUR ---
ORIENTEE documentation: I have reviewed and agree with all interventions, assessments performed and documented by BARRETT RN . ORIENTEE Medication Administration: For this medication-pass time frame, all medication were reviewed, dispensed, administered and documented per hospital policy by BARRETT RN.
[2020-11-08] MEDS ORDERED: VANCOMYCIN LEVEL IV ONE (08:30)
== END 2020-11-06 14:58 | DRG 710 ==
LOC: ER 10:32 → ED HOLD 18:07 → PCU 3S 21:25
PROVIDERS: ADMIT Family Medicine; ATTEND Family Medicine
PROC: 30233N1 Transfusion of Nonautologous Red Blood Cells into Peripheral Vein, Percutaneous Approach (ICD-10-PCS; 2020-10-30)
PROC: 0DB80ZZ Excision of Small Intestine, Open Approach (ICD-10-PCS; 2020-11-02)
PROC: 0JB80ZZ Excision of Abdomen Subcutaneous Tissue and Fascia, Open Approach (ICD-10-PCS; 2020-11-02)
PROC: 0WQF0ZZ Repair Abdominal Wall, Open Approach (ICD-10-PCS; principal; 2020-11-02 12:30)
DX: A41.02 Sepsis due to Methicillin resistant Staphylococcus aureus (principal); N17.0 Acute kidney failure with tubular necrosis; R65.21 Severe sepsis with septic shock; K63.2 Fistula of intestine; E11.22 Type 2 diabetes mellitus with diabetic chronic kidney disease; E11.51 Type 2 diabetes mellitus with diabetic peripheral angiopathy without gangrene; E66.01 Morbid (severe) obesity due to excess calories; D64.9 Anemia, unspecified; E78.00 Pure hypercholesterolemia, unspecified; E87.1 Hypo-osmolality and hyponatremia; E87.5 Hyperkalemia; F02.80 Dementia in other diseases classified elsewhere, unspecified severity, without behavioral disturbance, psychotic disturbance, mood disturbance, and anxiety; F17.210 Nicotine dependence, cigarettes, uncomplicated; G30.9 Alzheimer's disease, unspecified; K43.2 Incisional hernia without obstruction or gangrene; K66.0 Peritoneal adhesions (postprocedural) (postinfection); L02.411 Cutaneous abscess of right axilla; N18.9 Chronic kidney disease, unspecified; Z20.822 Contact with and (suspected) exposure to COVID-19; Z86.61 Personal history of infections of the central nervous system; Z90.710 Acquired absence of both cervix and uterus; Z93.2 Ileostomy status; Z93.3 Colostomy status; Z79.899 Other long term (current) drug therapy; Z79.84 Long term (current) use of oral hypoglycemic drugs; Z82.49 Family history of ischemic heart disease and other diseases of the circulatory system
CPT/HCPCS: 10030; 10060; 36415; 36430; 36556; 36573; 71045; 71250; 74176; 76770; 76937; 80048; 80053; 80202; 81001; 81025; 82272; 82570; 82948; 83036; 83605; 83735; 84100; 84132; 84134; 84145; 84156; 84300; 84478; 85007; 85025; 85027; 85610; 85730; 86885; 86900; 86901; 86920; 87040; 87070; 87075; 87077; 87081; 87186; 87207; 87635; 89051; 90471; 90715; 93005; 96361; 96365; 96375; 97116; 97161; 97162; 97530; 97535; 99285; A4215; A4618; A6407; A7000; C9290; C9399; G0378; J0360; J0694; J1100; J1170; J1644; J1815; J1956; J2001; J2060; J2250; J2270; J2354; J2405; J2543; J2704; J2710; J2765; J3010; J3370; J3475; J3480; J3490; J7030; J7050; J7060; J7070; J7120; P9016; Q0163; Q0177; Q9963

== ENCOUNTER 2020-11-11 10:27 | Inpatient (IN) | payer MEDICAID ==
[~2020-11-11] VITALS: Ht 167.6 cm; Wt 102.0 kg
[~2020-11-11 10:27] MED LIST changes: -ACET1TAB12 PO; -ALBU2.5V13 NEB; -ALBU6.7H9 INH; +ALBU8HFA PO; -CLON-527 PO; -DOXE25CA3 PO; -GABA300C PO; +LORA-268 PO; +METF-436 PO; -METF1000 PO; -OMEP20CA4 PO; -ONDA4TAB6 PO; -SERT50TA PO
[2020-11-11 11:53] LABS: BASOPHILS % (AUTO) 0.4 % (0-1); EOSINOPHILS # (AUTO) 0.2 X10'3 (0-0.9); EOSINOPHILS % (AUTO) 1.6 % (0-6); HEMATOCRIT 30.6 % (35.0-45.0); HEMOGLOBIN 10.5 g/dl (12.0-16.0); LYMPHOCYTES # (AUTO) 1.5 X10'3 (1.1-4.8); LYMPHOCYTES % (AUTO) 13.9 % (21-51); MEAN CORPUSCULAR HEMOGLOBIN 31.2 PG (27.0-31.0); MEAN CORPUSCULAR HGB CONC 34.2 g/dL (33.0-36.5); MEAN CORPUSCULAR VOLUME 91.1 FL (78-98); MEAN PLATELET VOLUME 5.7 FL (7.4-10.4); MONOCYTES # (AUTO) 0.5 X10'3 (0-0.9); NEUTROPHILS # (AUTO) 8.3 X10'3 (1.8-7.7); NEUTROPHILS % (AUTO) 79.1 % (42-75); PLATELET COUNT 400 X10'3 (140-440); RED BLOOD COUNT 3.35 X10'6 (4.20-5.60); RED CELL DISTRIBUTION WIDTH 16.1 % (11.5-14.5); WHITE BLOOD COUNT 10.4 X10'3 (4.5-11.0)
[2020-11-11 12:02] LABS: ALANINE AMINOTRANSFERASE 14 U/L (12-78); ALBUMIN 2.2 G/DL (3.4-5.0); ALBUMIN/GLOBULIN RATIO 0.4 (1.1-1.5); ALKALINE PHOSPHATASE 177 IU/L (46-116); ANION GAP 10 (8-16); ASPARTATE AMINO TRANSFERASE 15 U/L (10-37); BILIRUBIN,TOTAL 0.3 MG/DL (0.1-1.0); BLOOD UREA NITROGEN 16 MG/DL (7-18); CALCIUM 8.4 MG/DL (8.5-10.1); CHLORIDE 107 MMOL/L (99-107); CREATININE 1.46 MG/DL (0.40-0.90); GLUCOSE 134 MG/DL (70-104); LIPASE < 50 U/L (73-393); POTASSIUM 4.2 MMOL/L (3.5-5.1); SODIUM 139 MMOL/L (135-145); TOTAL CARBON DIOXIDE 22.5 MMOL/L (24-32); TOTAL PROTEIN 7.7 G/DL (6.4-8.2); eGFR 37 ML/MIN
[2020-11-11 12:15] LABS: TOTAL CELLS COUNTED 100
[2020-11-11 12:18] LABS: ANISOCYTOSIS 1+; STOMATOCYTES 2+; TEAR DROP CELLS FEW
[2020-11-11 12:22] LABS: PLATELET ESTIMATE NORMAL
[2020-11-11] MEDS ORDERED: pantoprazole 40 MG vial IV ONE (12:45)
[2020-11-11] MEDS ORDERED: normal saline 1000ML IV soln IVB ONE (12:45)
[2020-11-11] MEDS ORDERED: morphine 4 MG/ML inj SYRINge IV ONE (12:45)
[2020-11-11] MEDS ORDERED: ondansetron/PF 4mg/2ml inj IV ONE (12:45)
[2020-11-11] MEDS: morphine 2 MG/ML inj. syringe IV PRN ×4 (13:10→17:35)
[2020-11-11 14:27] LABS: CLARITY,URINE CLOUDY (Clear); COLOR,URINE YELLOW (Yellow); GLUCOSE, URINE NEGATIVE (Neg); KETONES,URINE NEGATIVE (Neg); LEUKOCYTE ESTERASE ,URINE NEGATIVE (Neg); NITRITES, URINE NEGATIVE (Neg); OCCULT BLOOD,URINE NEGATIVE (Neg); PH,URINE 5.5 (4.8-8.0); PROTEIN,URINE 100 mg/dl (Neg); UROBILINOGEN,URINE 0.2 E.U/dL (0.2-1.0)
--- NOTE | 2020-11-11 14:28 | NUR ---
ADMIN PAIN MEDS, PT TAKEN TO CT VIA GURNEY BY Splice Machine.
[2020-11-11 14:32] LABS: UA COLLECTION TYPE STRAIGHT CATH
[2020-11-11 14:34] LABS: BACTERIA,URINE FEW /HPF (Neg); COARSE GRANULAR CAST 0-3 /LPF (NEGATIVE); HYALINE CASTS 0-3 /LPF (NEGATIVE); MUCUS STRANDS MODERATE /LPF (Neg); RBC,URINE NONE SEEN /HPF (0-2); SQUAMOUS EPITHELIAL CELL,UR MANY /LPF (FEW); WBC,URINE 0-4 /HPF (0-4)
[2020-11-11] MEDS ORDERED: fentaNYL/PF 50MCG/1 ML 2ML syringe IV ONE (16:00)
[2020-11-11] MEDS ORDERED: HYDROcodone/acetaminophen 5mg/325mg tablet PO PRN (16:55)
[2020-11-11] MEDS ORDERED: magnesium 2GM in 50ml NS 50 ML IV PRN (16:55)
[2020-11-11] MEDS ORDERED: potassium Cl 40MEQ/1/2NS 520ml 520 ML IV PRN ×2 (16:55)
[2020-11-11] MEDS ORDERED: potassium Cl 20 mEq SR tablet PO PRN ×2 (16:55)
[2020-11-11] MEDS ORDERED: morphine 2 MG/ML inj. syringe IV PRN (16:55)
[2020-11-11] MEDS ORDERED: magnesium 4gm in 100ml NS 100 ML IV PRN (16:55)
[2020-11-11] MEDS ORDERED: acetaminophen 325mg tablet PO PRN ×2 (16:55)
[2020-11-11] MEDS ORDERED: metroNIDAZOLE-Flagyl 500mg/NS 100 ML IV STA (16:59)
[2020-11-11] MEDS ORDERED: ciprofloxacin 250mg tablet PO ONE (17:00)
[2020-11-11] MEDS ORDERED: albuterol 2.5 MG/3 ML nebule NEB PRN (17:00)
[2020-11-11] MEDS ORDERED: insulin Lispro (HumaLOG) vial - multi-dose SQ SCH (17:05)
[2020-11-11] MEDS ORDERED: dextrose 50%-water 50ml dispensing syringe IV PRN ×2 (17:05)
[2020-11-11] MEDS ORDERED: MESSAGE TO PHARMACY PO ONE (17:05)
[2020-11-11] MEDS ORDERED: glucagon, human recombinant 1mg kit SUBCUT PRN (17:05)
[2020-11-11] MEDS ORDERED: dextrose ORAL solution 15 GM/59 ML bottle PO PRN ×2 (17:05)
[2020-11-11] MEDS: normal saline 1000ml 1,000 ML IV SCH (17:32)
[2020-11-11] MEDS ORDERED: HYDR45CR TOP (17:57)
[2020-11-11] MEDS ORDERED: DILT120C19 PO (17:57)
[2020-11-11] MEDS ORDERED: CETI-90 PO (17:57)
[2020-11-11] MEDS ORDERED: TETR15DR84 OP (18:09)
[2020-11-11] MEDS ORDERED: NICO-687 TOP (18:09)
[2020-11-11] MEDS ORDERED: PANT-47 PO (18:09)
[2020-11-11] MEDS ORDERED: OXYC-145 PO (18:09)
[2020-11-11] MEDS ORDERED: NPH,100V SQ (18:09)
[2020-11-11] MEDS ORDERED: CLOT15CR73 TP (18:09)
[2020-11-11] MEDS ORDERED: MULT-1079 PO (18:09)
[2020-11-11] MEDS ORDERED: MYCOL15CR TOP (18:09)
[2020-11-11] MEDS ORDERED: POLY119P2 PO (18:09)
[2020-11-11] MEDS ORDERED: LACT1TAB27 PO (18:09)
--- NOTE | 2020-11-11 19:46 | NUR ---
Received patient report from BOBBIN FIXERLANE Nguyen. Patient to follow shortly.
[2020-11-11] MEDS: K and/or MAG REPLACEMENT MC SCH (20:00)
--- NOTE | 2020-11-11 20:00 | NUR ---
Patient arrived to [facility] via gurney. Pt. able to ambulate to bed and get situated.
[2020-11-11 20:30] VITALS: BP 151/71
[2020-11-11] MEDS: HYDROmorphone inj. 0.5 MG/0.5 ML DISP.SYRIN IV PRN (20:55)
[2020-11-11] MEDS: heparin, porcine 5000 units/ml vial SQ SCH (21:02)
[2020-11-11] MEDS: insulin glargine (Lantus) pen - multi-dose SQ SCH (21:10)
[2020-11-11] MEDS: ondansetron/PF 4mg/2ml inj IV PRN (21:30)
[2020-11-12] VITALS: BP 134/75
[2020-11-12] MEDS: morphine 2 MG/ML inj. syringe IV PRN ×3 (00:55→14:06)
[2020-11-12] MEDS: normal saline 1000ml 1,000 ML IV SCH ×3 (01:47→21:15)
--- NOTE | 2020-11-12 06:15 | NUR ---
Problems reprioritized. Patient report given, questions answered & plan of care reviewed with Aide SHERMAN and Stevo SHERMAN.
--- NOTE | 2020-11-12 06:21 | NUR ---
Patient in room ALYSSA 352. I have received report from LANE Montano and had the opportunity to ask questions and assume patient care.
[2020-11-12 06:23] LABS: BASOPHILS % (AUTO) 0.3 % (0-1); EOSINOPHILS # (AUTO) 0.1 X10'3 (0-0.9); EOSINOPHILS % (AUTO) 0.8 % (0-6); HEMATOCRIT 27.8 % (35.0-45.0); HEMOGLOBIN 9.3 g/dl (12.0-16.0); LYMPHOCYTES # (AUTO) 1.3 X10'3 (1.1-4.8); MEAN CORPUSCULAR HEMOGLOBIN 31.2 PG (27.0-31.0); MEAN CORPUSCULAR HGB CONC 33.6 g/dL (33.0-36.5); MEAN PLATELET VOLUME 5.9 FL (7.4-10.4); MONOCYTES # (AUTO) 0.5 X10'3 (0-0.9); MONOCYTES % (AUTO) 4.1 % (2-12); NEUTROPHILS # (AUTO) 9.1 X10'3 (1.8-7.7); NEUTROPHILS % (AUTO) 82.8 % (42-75); PLATELET COUNT 338 X10'3 (140-440); RED BLOOD COUNT 2.99 X10'6 (4.20-5.60); RED CELL DISTRIBUTION WIDTH 16.5 % (11.5-14.5)
[2020-11-12 06:52] LABS: ALANINE AMINOTRANSFERASE 14 U/L (12-78); ALBUMIN 1.9 G/DL (3.4-5.0); ALBUMIN/GLOBULIN RATIO 0.4 (1.1-1.5); ALKALINE PHOSPHATASE 144 IU/L (46-116); ANION GAP 12 (8-16); ASPARTATE AMINO TRANSFERASE 16 U/L (10-37); BILIRUBIN,TOTAL 0.2 MG/DL (0.1-1.0); BLOOD UREA NITROGEN 15 MG/DL (7-18); BUN/CREATININE RATIO 11.6 (6.6-38.0); CALCIUM 7.9 MG/DL (8.5-10.1); CHLORIDE 109 MMOL/L (99-107); CREATININE 1.29 MG/DL (0.40-0.90); GLUCOSE 99 MG/DL (70-104); MAGNESIUM 1.5 MG/DL (1.5-2.4); POTASSIUM 4.3 MMOL/L (3.5-5.1); SODIUM 138 MMOL/L (135-145); TOTAL PROTEIN 6.9 G/DL (6.4-8.2); eGFR 42 ML/MIN
[2020-11-12 07:09] VITALS: BP 134/75
[2020-11-12] MEDS: K and/or MAG REPLACEMENT MC SCH ×2 (08:46→19:56)
[2020-11-12] MEDS: heparin, porcine 5000 units/ml vial SQ SCH ×2 (09:03→19:59)
[2020-11-12 11:00] VITALS: BP 139/81
[2020-11-12] MEDS: HYDROcodone/acetaminophen 10/325mg tab PO PRN ×2 (11:17→16:51)
--- NOTE | 2020-11-12 12:21 | NUR ---
Wound care in to see patient. Patient ileostomy seal broken and leaking stool. Ileostomy changed, good seal. Will continue to monitor.
--- NOTE | 2020-11-12 13:41 | NUR ---
Notified Dr. Hooks patient's midline incision at distal portion with gary appears to be pulling apart. No drainage noted. Dr. Hooks states it's due to patient having packing and packing removed after surgery and that he will see her tomorrow. Will continue to monitor.
--- NOTE | 2020-11-12 14:10 | NUR ---
DM Consult: Pt A1C 7.4 hx T2DM. Pt hx recent prior admit for sepsis w/ high output enterocutaneous fistula surrounding Ileostomy site requiring OR to repair just over one week ago. Pt admit w/ 12/25 abdominal pain to prior surgical site and some nausea w/ hx Crohn's as well. Ileostomy output 1075ml so far this admit WNL given newer Ileostomy. Pt previously TPN dependent for nutrition advanced to clear liquids w/ TPN prior to transfer to [facility] 11/06. Not appropriate for DM ed given nutrition-support dependence prior admit. Will monitor for diet advancement and nutrition support needs this admit. Rec: 1. advance diet as medically indicated to low-residue 2. IF to remain on clear liquids for prolonged period resume PN to meet nutrition needs post-op Addendum: 11/12/20 at [address] Amended: Links added.
--- NOTE | 2020-11-12 15:22 | NUR ---
Dr. Duggan in to see patient.
--- NOTE | 2020-11-12 18:15 | NUR ---
Problems reprioritized. Patient report given, questions answered & plan of care reviewed with LANE Treviño.
[2020-11-12 18:30] VITALS: BP 134/74
[2020-11-12] MEDS: HYDROmorphone inj. 0.5 MG/0.5 ML DISP.SYRIN IV PRN (19:54)
[2020-11-12] MEDS: insulin glargine (Lantus) pen - multi-dose SQ SCH (21:00)
[2020-11-12] MEDS: LORazepam 0.5 MG tablet PO PRN (21:14)
[2020-11-13 06:18] LABS: BASOPHILS % (AUTO) 0.4 % (0-1); EOSINOPHILS # (AUTO) 0.2 X10'3 (0-0.9); EOSINOPHILS % (AUTO) 2.1 % (0-6); HEMOGLOBIN 8.7 g/dl (12.0-16.0); LYMPHOCYTES # (AUTO) 1.5 X10'3 (1.1-4.8); LYMPHOCYTES % (AUTO) 17.9 % (21-51); MEAN CORPUSCULAR HEMOGLOBIN 31.9 PG (27.0-31.0); MEAN CORPUSCULAR VOLUME 91.2 FL (78-98); MEAN PLATELET VOLUME 5.8 FL (7.4-10.4); MONOCYTES # (AUTO) 0.4 X10'3 (0-0.9); MONOCYTES % (AUTO) 5.1 % (2-12); NEUTROPHILS # (AUTO) 6.2 X10'3 (1.8-7.7); NEUTROPHILS % (AUTO) 74.5 % (42-75); PLATELET COUNT 345 X10'3 (140-440); RED BLOOD COUNT 2.74 X10'6 (4.20-5.60); RED CELL DISTRIBUTION WIDTH 16.4 % (11.5-14.5); WHITE BLOOD COUNT 8.4 X10'3 (4.5-11.0)
[2020-11-13 06:41] LABS: ALANINE AMINOTRANSFERASE 11 U/L (12-78); ALBUMIN/GLOBULIN RATIO 0.4 (1.1-1.5); ALKALINE PHOSPHATASE 117 IU/L (46-116); ANION GAP 12 (8-16); ASPARTATE AMINO TRANSFERASE 11 U/L (10-37); BILIRUBIN,TOTAL 0.2 MG/DL (0.1-1.0); BLOOD UREA NITROGEN 11 MG/DL (7-18); BUN/CREATININE RATIO 9.2 (6.6-38.0); CALCIUM 8.1 MG/DL (8.5-10.1); CHLORIDE 111 MMOL/L (99-107); CREATININE 1.19 MG/DL (0.40-0.90); GLUCOSE 105 MG/DL (70-104); MAGNESIUM 1.4 MG/DL (1.5-2.4); POTASSIUM 3.7 MMOL/L (3.5-5.1); SODIUM 140 MMOL/L (135-145); TOTAL CARBON DIOXIDE 17.3 MMOL/L (24-32); TOTAL PROTEIN 6.7 G/DL (6.4-8.2); eGFR 46 ML/MIN
--- NOTE | 2020-11-13 06:42 | NUR ---
Patient in room ALYSSA 352. I have received report from Christiano SHERMAN and had the opportunity to ask questions and assume patient care.
--- NOTE | 2020-11-13 06:51 | NUR ---
Problems reprioritized. Patient report given, questions answered & plan of care reviewed with SANTOS. Addendum: 11/13/20 at 0652 by Hudson Hart RN Amended: Links added.
[2020-11-13] MEDS: magnesium Cl slow-release 64mg tablet PO PRN ×2 (07:43→19:43)
[2020-11-13] MEDS: heparin, porcine 5000 units/ml vial SQ SCH ×2 (07:44→19:44)
[2020-11-13] MEDS: normal saline 1000ml 1,000 ML IV SCH ×2 (07:46→17:11)
[2020-11-13 08:00] VITALS: BP 117/76
[2020-11-13] MEDS: K and/or MAG REPLACEMENT MC SCH ×2 (08:00→20:00)
[2020-11-13] MEDS: HYDROcodone/acetaminophen 10/325mg tab PO PRN ×3 (09:16→22:27)
[2020-11-13] MEDS: HYDROmorphone inj. 0.5 MG/0.5 ML DISP.SYRIN IV PRN ×2 (11:09→19:44)
--- NOTE | 2020-11-13 11:38 | NUR ---
PAGER ID: [phone] MESSAGE: [facility] Surg [phone]- RE: John Jean- Positive blood cultures gram positive cocci in clusters 11/11 right arm pos at 40.5 hrs.
--- NOTE | 2020-11-13 11:51 | NUR ---
PAGER ID: [phone] MESSAGE: [facility] Surg [phone]- RE: John Jean- Positive blood cultures gram positive cocci in clusters 11/11 right arm pos at 40.5 hrs.
[2020-11-13 12:00] VITALS: BP 127/64
[2020-11-13] MEDS: metroNIDAZOLE-Flagyl 500mg/NS 100ml IVPB IV SCH ×2 (12:53→19:44)
[2020-11-13] MEDS: ciprofloxacin lact 400MG/200ML 200 ML IV SCH (13:23)
[2020-11-13] MEDS: LORazepam 0.5 MG tablet PO PRN (15:56)
--- NOTE | 2020-11-13 18:18 | NUR ---
Problems reprioritized. Patient report given, questions answered & plan of care reviewed with Fareed SHERMAN.
--- NOTE | 2020-11-13 18:28 | NUR ---
Patient in room ALYSSA 352. I have received report from Yuly SHERMAN and had the opportunity to ask questions and assume patient care.
[2020-11-13 19:23] VITALS: BP 145/74
[2020-11-13] MEDS: insulin glargine (Lantus) pen - multi-dose SQ SCH (21:00)
[2020-11-13] MEDS: temazepam 15mg capsule PO PRN (22:27)
[2020-11-13 23:55] VITALS: BP 120/64
[2020-11-14] MEDS: HYDROmorphone inj. 0.5 MG/0.5 ML DISP.SYRIN IV PRN ×3 (00:45→13:58)
[2020-11-14] MEDS: metroNIDAZOLE-Flagyl 500mg/NS 100ml IVPB IV SCH ×3 (03:49→20:55)
[2020-11-14] MEDS: normal saline 1000ml 1,000 ML IV SCH ×2 (03:52→15:30)
[2020-11-14 06:02] LABS: BASOPHILS % (AUTO) 0.4 % (0-1); EOSINOPHILS # (AUTO) 0.1 X10'3 (0-0.9); HEMATOCRIT 22.9 % (35.0-45.0); HEMOGLOBIN 7.9 g/dl (12.0-16.0); LYMPHOCYTES # (AUTO) 1.1 X10'3 (1.1-4.8); MEAN CORPUSCULAR HEMOGLOBIN 31.9 PG (27.0-31.0); MEAN CORPUSCULAR HGB CONC 34.7 g/dL (33.0-36.5); MEAN CORPUSCULAR VOLUME 91.7 FL (78-98); MEAN PLATELET VOLUME 5.8 FL (7.4-10.4); MONOCYTES # (AUTO) 0.4 X10'3 (0-0.9); MONOCYTES % (AUTO) 6.5 % (2-12); NEUTROPHILS % (AUTO) 72.1 % (42-75); PLATELET COUNT 290 X10'3 (140-440); RED BLOOD COUNT 2.49 X10'6 (4.20-5.60); RED CELL DISTRIBUTION WIDTH 16.1 % (11.5-14.5); WHITE BLOOD COUNT 5.6 X10'3 (4.5-11.0)
[2020-11-14 06:20] LABS: ALANINE AMINOTRANSFERASE 11 U/L (12-78); ALBUMIN 1.8 G/DL (3.4-5.0); ALBUMIN/GLOBULIN RATIO 0.4 (1.1-1.5); ALKALINE PHOSPHATASE 99 IU/L (46-116); ANION GAP 9 (8-16); ASPARTATE AMINO TRANSFERASE 12 U/L (10-37); BILIRUBIN,TOTAL 0.2 MG/DL (0.1-1.0); BLOOD UREA NITROGEN 7 MG/DL (7-18); BUN/CREATININE RATIO 6.2 (6.6-38.0); CALCIUM 7.8 MG/DL (8.5-10.1); CHLORIDE 111 MMOL/L (99-107); CREATININE 1.13 MG/DL (0.40-0.90); GLUCOSE 93 MG/DL (70-104); MAGNESIUM 1.3 MG/DL (1.5-2.4); POTASSIUM 3.5 MMOL/L (3.5-5.1); SODIUM 141 MMOL/L (135-145); TOTAL PROTEIN 6.2 G/DL (6.4-8.2); eGFR 49 ML/MIN
[2020-11-14 06:39] LABS: ANISOCYTOSIS 1+; LARGE PLATELETS FEW; PLATELET ESTIMATE NORMAL
--- NOTE | 2020-11-14 06:42 | NUR ---
Problems reprioritized. Patient report given, questions answered & plan of care reviewed with Julio SHERMAN.
[2020-11-14 07:16] VITALS: BP 119/57
[2020-11-14] MEDS: ciprofloxacin lact 400MG/200ML 200 ML IV SCH (07:44)
[2020-11-14] MEDS: magnesium Cl slow-release 64mg tablet PO PRN ×2 (07:44→20:55)
[2020-11-14] MEDS: heparin, porcine 5000 units/ml vial SQ SCH ×2 (07:45→20:55)
[2020-11-14] MEDS: K and/or MAG REPLACEMENT MC SCH ×2 (07:45→20:56)
[2020-11-14 11:00] VITALS: BP 135/74
--- NOTE | 2020-11-14 14:46 | NUR ---
Initial: Pt admit w/ abdominal pain to prior surgical site, nausea w/ hx Crohn's, and DX enteritis/peritonitis. Pt hx recent prior admit for sepsis w/ high output enterocutaneous fistula surrounding Ileostomy site requiring OR to repair just over one week ago. Recent prior admit pt TPN dependent for nutrition and advanced to clear liquids w/ TPN prior to transfer to [facility] 11/06. This admit; Ileostomy initial output 1075ml WNL given newer Ileostomy though subsequent output only documented in number BM's and not stool volume so unsure of stool volume at this time. Currently pt on clear liquid diet PO 50-75% avg meals past 3 days since admit though no longer on PN w/ PICC to be discontinued today per RN. RD d/w RN regarding diet advancement to low-residue given PO diet tolerance and functional Ileostomy if MD agreeable. Will monitor for diet advancement and additional protein/kcal needs this admit. Noted pt A1C down from prior admit and was seen by RD for DM ed at that time so no need for DM ed this admit though will remain available. Rec: 1. advance diet as medically indicated to low-residue 2. monitor for Carlos/ONS needs for wound healing pending diet advancement and PO trends 3. bowel care per rx; IF sustained high output Ileostomy consider anti-diarrheal 4. scaled wt this admit Addendum: 11/14/20 at [address] Amended: Links added.
[2020-11-14] MEDS: vancomycin/NS 1 GM ADD-VANTAGE 250 ML IV SCH (15:30)
[2020-11-14] MEDS: HYDROcodone/acetaminophen 10/325mg tab PO PRN ×2 (16:39→20:54)
--- NOTE | 2020-11-14 16:47 | NUR ---
Dr. Garcia informed of, and ok with, PICC line D/C tomorrow when there is a PICC nurse available to place midline PIV, pt is a really difficult one to place IV into.
[2020-11-14 18:05] VITALS: BP 155/85
--- NOTE | 2020-11-14 18:11 | NUR ---
Problems reprioritized. Patient report given, questions answered & plan of care reviewed with Fareed SHERMAN.
--- NOTE | 2020-11-14 18:39 | NUR ---
Patient in room ALYSSA 352. I have received report from Julio SHERMAN and had the opportunity to ask questions and assume patient care.
[2020-11-14] MEDS ORDERED: potassium Cl 20 mEq SR tablet PO PRN (20:35)
[2020-11-14] MEDS ORDERED: magnesium 4gm in 100ml NS 100 ML IV PRN (20:35)
[2020-11-14] MEDS ORDERED: potassium Cl 40MEQ/1/2NS 520ml 520 ML IV PRN (20:35)
[2020-11-14] MEDS: insulin glargine (Lantus) pen - multi-dose SQ SCH (21:00)
[2020-11-14 23:10] VITALS: BP 155/84
[2020-11-14 23:17] LABS: HIV ANTIBODY 1&2 RAPID NON-REACTIVE (Neg)
[2020-11-15] MEDS: vancomycin/NS 1 GM ADD-VANTAGE 250 ML IV SCH ×2 (01:50→13:57)
[2020-11-15] MEDS: normal saline 1000ml 1,000 ML IV SCH ×3 (04:09→20:55)
[2020-11-15] MEDS: metroNIDAZOLE-Flagyl 500mg/NS 100ml IVPB IV SCH ×3 (04:10→19:37)
[2020-11-15] MEDS: HYDROcodone/acetaminophen 10/325mg tab PO PRN ×3 (05:13→19:38)
[2020-11-15 06:13] LABS: BASOPHILS % (AUTO) 0.3 % (0-1); EOSINOPHILS % (AUTO) 0.6 % (0-6); HEMATOCRIT 22.4 % (35.0-45.0); HEMOGLOBIN 7.8 g/dl (12.0-16.0); LYMPHOCYTES # (AUTO) 0.7 X10'3 (1.1-4.8); LYMPHOCYTES % (AUTO) 9.7 % (21-51); MEAN CORPUSCULAR HGB CONC 34.8 g/dL (33.0-36.5); MEAN CORPUSCULAR VOLUME 92.2 FL (78-98); MEAN PLATELET VOLUME 5.8 FL (7.4-10.4); MONOCYTES # (AUTO) 0.5 X10'3 (0-0.9); MONOCYTES % (AUTO) 7.3 % (2-12); NEUTROPHILS # (AUTO) 5.6 X10'3 (1.8-7.7); NEUTROPHILS % (AUTO) 82.1 % (42-75); PLATELET COUNT 244 X10'3 (140-440); RED BLOOD COUNT 2.43 X10'6 (4.20-5.60); RED CELL DISTRIBUTION WIDTH 16.3 % (11.5-14.5); WHITE BLOOD COUNT 6.8 X10'3 (4.5-11.0)
[2020-11-15 06:54] LABS: ALANINE AMINOTRANSFERASE 6 U/L (12-78); ALBUMIN 1.9 G/DL (3.4-5.0); ALBUMIN/GLOBULIN RATIO 0.4 (1.1-1.5); ALKALINE PHOSPHATASE 92 IU/L (46-116); ANION GAP 10 (8-16); ASPARTATE AMINO TRANSFERASE 9 U/L (10-37); BILIRUBIN,TOTAL 0.3 MG/DL (0.1-1.0); BLOOD UREA NITROGEN 4 MG/DL (7-18); BUN/CREATININE RATIO 3.6 (6.6-38.0); CALCIUM 7.6 MG/DL (8.5-10.1); CHLORIDE 109 MMOL/L (99-107); CREATININE 1.12 MG/DL (0.40-0.90); GLUCOSE 115 MG/DL (70-104); MAGNESIUM 1.3 MG/DL (1.5-2.4); POTASSIUM 3.2 MMOL/L (3.5-5.1); SODIUM 138 MMOL/L (135-145); TOTAL PROTEIN 6.2 G/DL (6.4-8.2); eGFR 50 ML/MIN
[2020-11-15] MEDS: levoFLOXACIN-Levaquin 500mg/D5 100 ML IV SCH (07:32)
[2020-11-15] MEDS: heparin, porcine 5000 units/ml vial SQ SCH ×2 (07:33→19:38)
[2020-11-15] MEDS: potassium Cl 20 mEq SR tablet PO PRN ×3 (07:33→16:40)
[2020-11-15] MEDS: magnesium Cl slow-release 64mg tablet PO PRN ×2 (07:34→19:50)
[2020-11-15] MEDS: HYDROmorphone inj. 0.5 MG/0.5 ML DISP.SYRIN IV PRN ×3 (07:34→21:14)
[2020-11-15 08:00] VITALS: BP 140/81
[2020-11-15] MEDS: K and/or MAG REPLACEMENT MC SCH ×3 (08:00→19:43)
[2020-11-15 11:00] VITALS: BP 140/81
--- NOTE | 2020-11-15 18:00 | NUR ---
Problems reprioritized. Patient report given, questions answered & plan of care reviewed with Yaima SHERMAN.
[2020-11-15 19:00] VITALS: BP 158/86
[2020-11-15] MEDS: insulin glargine (Lantus) pen - multi-dose SQ SCH (21:00)
[2020-11-15] MEDS: ondansetron/PF 4mg/2ml inj IV PRN (21:13)
[2020-11-16] VITALS (7 sets, daily range): BP systolic 102–143; BP diastolic 71–86
[2020-11-16] MEDS ORDERED: VANCOMYCIN LEVEL IV ONE (01:30)
[2020-11-16] MEDS: temazepam 15mg capsule PO PRN ×2 (01:30→21:38)
[2020-11-16] MEDS: vancomycin/NS 1 GM ADD-VANTAGE 250 ML IV SCH (01:40)
[2020-11-16 01:54] LABS: BASOPHILS % (AUTO) 0.3 % (0-1); EOSINOPHILS # (AUTO) 0.1 X10'3 (0-0.9); EOSINOPHILS % (AUTO) 1.6 % (0-6); HEMATOCRIT 22.3 % (35.0-45.0); HEMOGLOBIN 7.6 g/dl (12.0-16.0); LYMPHOCYTES # (AUTO) 1.1 X10'3 (1.1-4.8); LYMPHOCYTES % (AUTO) 20.8 % (21-51); MEAN CORPUSCULAR HEMOGLOBIN 31.3 PG (27.0-31.0); MEAN CORPUSCULAR HGB CONC 34.3 g/dL (33.0-36.5); MEAN CORPUSCULAR VOLUME 91.5 FL (78-98); MEAN PLATELET VOLUME 5.6 FL (7.4-10.4); MONOCYTES # (AUTO) 0.6 X10'3 (0-0.9); MONOCYTES % (AUTO) 10.5 % (2-12); NEUTROPHILS # (AUTO) 3.6 X10'3 (1.8-7.7); NEUTROPHILS % (AUTO) 66.8 % (42-75); PLATELET COUNT 231 X10'3 (140-440); RED BLOOD COUNT 2.44 X10'6 (4.20-5.60); RED CELL DISTRIBUTION WIDTH 16.8 % (11.5-14.5); WHITE BLOOD COUNT 5.4 X10'3 (4.5-11.0)
[2020-11-16 02:09] LABS: ALBUMIN 1.9 G/DL (3.4-5.0); ALBUMIN/GLOBULIN RATIO 0.5 (1.1-1.5); ALKALINE PHOSPHATASE 83 IU/L (46-116); ANION GAP 10 (8-16); ASPARTATE AMINO TRANSFERASE 10 U/L (10-37); BILIRUBIN,TOTAL 0.2 MG/DL (0.1-1.0); BLOOD UREA NITROGEN 3 MG/DL (7-18); BUN/CREATININE RATIO 2.6 (6.6-38.0); CALCIUM 7.6 MG/DL (8.5-10.1); CHLORIDE 110 MMOL/L (99-107); CREATININE 1.14 MG/DL (0.40-0.90); GLUCOSE 99 MG/DL (70-104); MAGNESIUM 1.3 MG/DL (1.5-2.4); POTASSIUM 3.5 MMOL/L (3.5-5.1); SODIUM 139 MMOL/L (135-145); TOTAL CARBON DIOXIDE 19.4 MMOL/L (24-32); TOTAL PROTEIN 6.1 G/DL (6.4-8.2); eGFR 49 ML/MIN
[2020-11-16 02:16] LABS: VANCOMYCIN,TROUGH 21.5 UG/ML (6.0-14.0)
--- NOTE | 2020-11-16 02:28 | NUR ---
Sherif 21.5, Pharmacy dosing Sherif and made aware. Addendum: 11/16/20 at 0229 by Yaima Kiran RN Amended: Links added.
--- NOTE | 2020-11-16 02:37 | NUR ---
Continue infusion. Per pharmacist. On FRI 2:32am 11/16/20 Nursing (Yaima Kiran) wrote take down Vanco or leave running? d/t 21.5 Trough Addendum: 11/16/20 at 0238 by Yaima Kiran RN Amended: Links added.
[2020-11-16 03:04] LABS: ALANINE AMINOTRANSFERASE < 6 U/L (12-78)
[2020-11-16] MEDS: metroNIDAZOLE-Flagyl 500mg/NS 100ml IVPB IV SCH ×3 (04:12→20:19)
[2020-11-16] MEDS: normal saline 1000ml 1,000 ML IV SCH ×3 (04:14→22:23)
--- NOTE | 2020-11-16 06:32 | NUR ---
Problems reprioritized. Patient report given, questions answered & plan of care reviewed with Julio SHERMAN. Addendum: 11/16/20 at 0632 by Yaima Kiran RN Amended: Links added.
[2020-11-16] MEDS: heparin, porcine 5000 units/ml vial SQ SCH ×2 (08:00→20:19)
[2020-11-16] MEDS: K and/or MAG REPLACEMENT MC SCH ×2 (08:00→20:00)
[2020-11-16] MEDS: levoFLOXACIN-Levaquin 500mg/D5 100 ML IV SCH (08:01)
[2020-11-16] MEDS: HYDROmorphone inj. 0.5 MG/0.5 ML DISP.SYRIN IV PRN ×2 (10:25→14:56)
[2020-11-16] MEDS: vancomycin inj. 750 MG in normal saline 250ml IV soln 250 ML IV SCH (14:56)
[2020-11-16] MEDS ORDERED: ringers solution, lacted 1,000 ML IV SCH (16:35)
[2020-11-16] MEDS ORDERED: morphine 2 MG/ML inj. syringe IV PRN (16:35)
[2020-11-16] MEDS ORDERED: proCHLORperazine 10 MG/2 ml inj IV PRN (16:35)
[2020-11-16] MEDS ORDERED: meperidine/PF 25mg/ml syringe IV PRN ×3 (16:35)
[2020-11-16] MEDS ORDERED: ondansetron/PF 4mg/2ml inj IV PRN (16:35)
[2020-11-16] MEDS ORDERED: morphine 4 MG/ML inj SYRINge IV PRN (16:35)
[2020-11-16] MEDS ORDERED: fentaNYL/PF 50MCG/1 ML 2ML syringe ONE (16:42)
[2020-11-16] MEDS ORDERED: midazolam 1 mg/ML 2ml injection ONE (16:43)
[2020-11-16] MEDS ORDERED: LIDOcaine 2% (20mg/ml) 5ml vial ONE (17:48)
[2020-11-16] MEDS ORDERED: propofol inj 20 ML IV ONE (17:48)
[2020-11-16] MEDS ORDERED: ondansetron/PF 4mg/2ml inj ONE (17:48)
--- NOTE | 2020-11-16 17:49 | NUR ---
Received from OR via SURGICAL BED , accompanied by Anesthesiamerica MARTÍNEZ and report given by Anesthesiolgist. PATIENT WITH CENTRAL LINE ON RIGHT SIDE OF NECK. VSS. DENIES PAIN . GAUZE DRESSING TO LEFT POSTERIOR SHOULDER THAT IS CDI. BG OF 65 AND MD MARTÍNEZ SAID TO FEED THE PATIENT. Addendum: 11/16/20 at 1805 by Chace Costello RN, RN Amended: Links added.
--- NOTE | 2020-11-16 18:39 | NUR ---
ALL DC CRITERIA FOR TRANFER BACK TO THE FLOOR HAVE BEEN ACHIEVED. VSS. LANE FISHER GIVEN REPORT AND ACCEPTED PATIENT BACK TO ROOM 352 WHERE VITALS WERE SET UP. BED LOW AND CALL LIGHT WITHIN REACH. PAIN STILL DENIED AND DRESSING TO SHOULDER WAS STILL CDI. RIGHT NECK CENTRAL LINE STILL CDI. CARE ASSUMED BY NATALIA. PATIENT AWAITS DINNER TRAY. NO S/S OF HYPOGLYCEMIA. PATIENT DID EAT CINNAMON CRACKERS AND A JUICE PER MD MARTÍNEZ REQUEST. Addendum: 11/16/20 at 1847 by Chace Costello RN, RN Amended: Links added.
[2020-11-16] MEDS: HYDROcodone/acetaminophen 10/325mg tab PO PRN (20:19)
[2020-11-16] MEDS: Dakins solution (1/4 strength) 473ml solution TP SCH ×2 (20:20→22:23)
[2020-11-16] MEDS: insulin glargine (Lantus) pen - multi-dose SQ SCH (21:00)
--- NOTE | 2020-11-16 22:00 | NUR ---
Dr. Cardozo phoned as pt is in pain and Taylors was given and ineffective. made aware that Dilaudid 0.5mg was given yesterday and has dropped off the emar. does not want to continue pain medication as she doesn't want pt to become a rapid response, and it was to be handled by day hospitalist. 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 acknowledges nurses concerns no new orders. Addendum: 11/16/20 at 2215 by Yaima Kiran RN Amended: Links added.
[2020-11-17] VITALS: BP 134/60
[2020-11-17] MEDS: HYDROcodone/acetaminophen 10/325mg tab PO PRN ×4 (01:58→23:19)
[2020-11-17] MEDS: vancomycin inj. 750 MG in normal saline 250ml IV soln 250 ML IV SCH ×2 (02:01→15:12)
[2020-11-17] MEDS: metroNIDAZOLE-Flagyl 500mg/NS 100ml IVPB IV SCH ×3 (04:05→19:47)
[2020-11-17 05:41] LABS: MAGNESIUM 1.5 MG/DL (1.5-2.4); POTASSIUM 3.1 MMOL/L (3.5-5.1)
--- NOTE | 2020-11-17 06:59 | NUR ---
Patient in room ALYSSA 352. I have received report from LANE Erwin and had the opportunity to ask questions and assume patient care.
[2020-11-17 07:00] VITALS: BP 147/59
[2020-11-17] MEDS: K and/or MAG REPLACEMENT MC SCH ×2 (08:00→20:25)
[2020-11-17] MEDS: Dakins solution (1/4 strength) 473ml solution TP SCH ×3 (08:00→20:00)
[2020-11-17] MEDS: heparin, porcine 5000 units/ml vial SQ SCH ×2 (09:17→20:25)
[2020-11-17] MEDS: levoFLOXACIN-Levaquin 500mg/D5 100 ML IV SCH (09:17)
[2020-11-17] MEDS: normal saline 1000ml 1,000 ML IV SCH (10:57)
[2020-11-17] MEDS: potassium Cl 20 mEq SR tablet PO PRN ×3 (10:58→20:29)
[2020-11-17] MEDS: HYDROmorphone inj. 0.5 MG/0.5 ML DISP.SYRIN IV PRN ×3 (10:58→19:47)
[2020-11-17 11:00] VITALS: BP 123/69
--- NOTE | 2020-11-17 11:00 | NUR ---
Deanne removed from midline incision per Dr Murrell orders. Pt tolerated well. Will continue to monitor.
--- NOTE | 2020-11-17 18:40 | NUR ---
Patient in room ALYSSA 352. I have received report from SERGIO SHERMAN and had the opportunity to ask questions and assume patient care. Addendum: 11/17/20 at 1928 by Concha Pereyra RN Amended: Links added.
--- NOTE | 2020-11-17 18:56 | NUR ---
Problems reprioritized. Patient report given, questions answered & plan of care reviewed with LANE Kern.
[2020-11-17 19:30] VITALS: BP 143/57
[2020-11-17] MEDS: insulin glargine (Lantus) pen - multi-dose SQ SCH (20:51)
--- NOTE | 2020-11-17 21:50 | NUR ---
ILEOSTOMY LEAKING LEAKING RIGHT LOWER QUAD. SKIN CARE DONE AND SKIN PREP TO AREA AND NEW APPLIANCE APPLIED. LIENS CHANGED AND PT POSITIONED TO COMFORT.
[2020-11-17] MEDS: temazepam 15mg capsule PO PRN (23:19)
[2020-11-18 00:30] VITALS: BP 130/78
[2020-11-18] MEDS: LORazepam 0.5 MG tablet PO PRN ×2 (01:11→22:29)
[2020-11-18] MEDS: normal saline 1000ml 1,000 ML IV SCH ×3 (01:11→18:55)
[2020-11-18] MEDS: HYDROmorphone inj. 0.5 MG/0.5 ML DISP.SYRIN IV PRN ×4 (01:14→22:29)
--- NOTE | 2020-11-18 01:15 | NUR ---
MEDICATED FOR PAIN WITH IV DILADID AND GIVEN PO ATIVAN WELL.
[2020-11-18] MEDS ORDERED: VANCOMYCIN LEVEL IV ONE ×2 (01:30→13:30)
[2020-11-18] MEDS: vancomycin inj. 750 MG in normal saline 250ml IV soln 250 ML IV SCH (02:35)
--- NOTE | 2020-11-18 04:00 | NUR ---
Dr Cardozo notified of pt getting ring worm from stray cat she adopted who laid against her back. noted has round pink spots that looks like ring worm to her back and c/o itching to the areas. Dr Cardozo notified and orders taken.
[2020-11-18 04:13] LABS: ALBUMIN 1.9 G/DL (3.4-5.0); ALBUMIN/GLOBULIN RATIO 0.5 (1.1-1.5); ALKALINE PHOSPHATASE 73 IU/L (46-116); ANION GAP 11 (8-16); ASPARTATE AMINO TRANSFERASE 12 U/L (10-37); BILIRUBIN,TOTAL 0.2 MG/DL (0.1-1.0); BLOOD UREA NITROGEN 8 MG/DL (7-18); BUN/CREATININE RATIO 6.5 (6.6-38.0); CALCIUM 7.5 MG/DL (8.5-10.1); CHLORIDE 111 MMOL/L (99-107); CREATININE 1.23 MG/DL (0.40-0.90); GLUCOSE 119 MG/DL (70-104); MAGNESIUM 1.3 MG/DL (1.5-2.4); POTASSIUM 3.5 MMOL/L (3.5-5.1); SODIUM 143 MMOL/L (135-145); TOTAL PROTEIN 6.1 G/DL (6.4-8.2); eGFR 45 ML/MIN
[2020-11-18 04:14] LABS: ALANINE AMINOTRANSFERASE < 6 U/L (12-78)
[2020-11-18] MEDS: metroNIDAZOLE-Flagyl 500mg/NS 100ml IVPB IV SCH ×3 (04:52→19:54)
--- NOTE | 2020-11-18 06:29 | NUR ---
Problems reprioritized. Patient report given, questions answered & plan of care reviewed with RAQUEL SHERMAN. Addendum: 11/18/20 at 0631 by Concha Pereyra RN Amended: Links added.
--- NOTE | 2020-11-18 06:54 | NUR ---
Patient in room ALYSSA 352. I have received report from Maria G SHERMAN and had the opportunity to ask questions and assume patient care.
[2020-11-18] MEDS: K and/or MAG REPLACEMENT MC SCH ×2 (08:00→20:00)
[2020-11-18 08:20] VITALS: BP 135/71
[2020-11-18] MEDS: levoFLOXACIN-Levaquin 500mg/D5 100 ML IV SCH (08:32)
[2020-11-18] MEDS: clotrimazole topical cream 15gm tube TP SCH ×2 (08:33→22:30)
[2020-11-18] MEDS: heparin, porcine 5000 units/ml vial SQ SCH ×2 (08:34→19:56)
[2020-11-18] MEDS: Dakins solution (1/4 strength) 473ml solution TP SCH ×3 (08:35→22:30)
[2020-11-18] MEDS: HYDROcodone/acetaminophen 10/325mg tab PO PRN ×2 (10:01→19:52)
[2020-11-18 11:00] VITALS: BP 144/68
--- NOTE | 2020-11-18 16:29 | NUR ---
Reassessment: Pt advanced to carb controlled diet / from prior clear liquids PO 75-100% first solid meals this admit much improved intake compared to clears. Pt s/p debridement of two L back lesions w/ prior abdomen surgical wound per EMR. RD recommends Carlos smoothie ONS BIDLD for wound healing; MD notified. Ileostomy output 750ml WNL. Noted Mg 1.3; ANMOL d/w RN regarding replacement if MD agreeable. Will continue to monitor for additional protein/kcal needs. Rec: 1. advance diet as medically indicated to low-residue/carb controlled 2. Carlos smoothie ONS BIDLD; pending MD verification in EMR 3. bowel care per rx 4. scaled wt this admit Addendum: 11/18/20 at [address] Amended: Links added.
--- NOTE | 2020-11-18 18:28 | NUR ---
Problems reprioritized. Patient report given, questions answered & plan of care reviewed with Maria G SHERMAN.
--- NOTE | 2020-11-18 18:35 | NUR ---
Patient in room ALYSSA 352. I have received report from RAQUEL SHERMAN and had the opportunity to ask questions and assume patient care. Addendum: 11/18/20 at 1835 by Concha Pereyra RN Amended: Links added.
[2020-11-18 19:28] VITALS: BP 150/92
[2020-11-18] MEDS: lactobacillus rhamnosus 10,000 MMU CELLS/CAPSULE PO SCH (19:53)
[2020-11-18] MEDS ORDERED: vancomycin/NS 1 GM ADD-VANTAGE 250 ML IV SCH (20:00)
[2020-11-18] MEDS: insulin glargine (Lantus) pen - multi-dose SQ SCH (21:00)
[2020-11-18] MEDS: temazepam 15mg capsule PO PRN (22:29)
[2020-11-19] VITALS: BP 143/82
[2020-11-19] MEDS: metroNIDAZOLE-Flagyl 500mg/NS 100ml IVPB IV SCH (04:03)
[2020-11-19] MEDS: normal saline 1000ml 1,000 ML IV SCH ×2 (04:03→16:09)
[2020-11-19] MEDS: HYDROmorphone inj. 0.5 MG/0.5 ML DISP.SYRIN IV PRN ×4 (04:04→21:16)
--- NOTE | 2020-11-19 04:10 | NUR ---
medicated for pain with iv diladid.
--- NOTE | 2020-11-19 04:15 | NUR ---
pt started to dry heave medicated with zofran for this.
--- NOTE | 2020-11-19 06:35 | NUR ---
Problems reprioritized. Patient report given, questions answered & plan of care reviewed with ALICE SHERMAN. Addendum: 11/19/20 at 0636 by Concha Pereyra RN Amended: Links added.
--- NOTE | 2020-11-19 06:51 | NUR ---
I have received report from ISAURO SHERMAN and had the opportunity to ask questions and assume patient care.
[2020-11-19 07:00] VITALS: BP 126/66
[2020-11-19] MEDS: K and/or MAG REPLACEMENT MC SCH ×3 (08:00→20:00)
[2020-11-19] MEDS: levoFLOXACIN-Levaquin 500mg/D5 100 ML IV SCH (08:14)
[2020-11-19] MEDS: lactobacillus rhamnosus 10,000 MMU CELLS/CAPSULE PO SCH ×2 (08:14→21:28)
[2020-11-19] MEDS: heparin, porcine 5000 units/ml vial SQ SCH ×2 (08:14→21:13)
[2020-11-19] MEDS: Dakins solution (1/4 strength) 473ml solution TP SCH ×2 (08:15→20:00)
[2020-11-19] MEDS: clotrimazole topical cream 15gm tube TP SCH ×2 (08:15→21:15)
[2020-11-19 08:48] LABS: ALANINE AMINOTRANSFERASE 12 U/L (12-78); ALBUMIN 1.9 G/DL (3.4-5.0); ALBUMIN/GLOBULIN RATIO 0.5 (1.1-1.5); ALKALINE PHOSPHATASE 71 IU/L (46-116); ANION GAP 12 (8-16); ASPARTATE AMINO TRANSFERASE 14 U/L (10-37); BILIRUBIN,TOTAL 0.2 MG/DL (0.1-1.0); BLOOD UREA NITROGEN 6 MG/DL (7-18); BUN/CREATININE RATIO 5.6 (6.6-38.0); CALCIUM 7.7 MG/DL (8.5-10.1); CHLORIDE 112 MMOL/L (99-107); CREATININE 1.08 MG/DL (0.40-0.90); GLUCOSE 110 MG/DL (70-104); POTASSIUM 3.4 MMOL/L (3.5-5.1); SODIUM 142 MMOL/L (135-145); TOTAL CARBON DIOXIDE 17.9 MMOL/L (24-32); TOTAL PROTEIN 6.1 G/DL (6.4-8.2); eGFR 52 ML/MIN
--- NOTE | 2020-11-19 08:49 | NUR ---
Dr Garcia reports that he dc'd the midline IV.
[2020-11-19 10:20] LABS: BASOPHILS % (AUTO) 0.3 % (0-1); EOSINOPHILS # (AUTO) 0.1 X10'3 (0-0.9); HEMATOCRIT 23.3 % (35.0-45.0); HEMOGLOBIN 7.6 g/dl (12.0-16.0); LYMPHOCYTES % (AUTO) 18.2 % (21-51); MEAN CORPUSCULAR HEMOGLOBIN 31.1 PG (27.0-31.0); MEAN CORPUSCULAR HGB CONC 32.8 g/dL (33.0-36.5); MEAN CORPUSCULAR VOLUME 94.7 FL (78-98); MEAN PLATELET VOLUME 6.2 FL (7.4-10.4); MONOCYTES # (AUTO) 0.4 X10'3 (0-0.9); MONOCYTES % (AUTO) 7.2 % (2-12); NEUTROPHILS # (AUTO) 3.8 X10'3 (1.8-7.7); NEUTROPHILS % (AUTO) 72.3 % (42-75); PLATELET COUNT 222 X10'3 (140-440); RED BLOOD COUNT 2.46 X10'6 (4.20-5.60); RED CELL DISTRIBUTION WIDTH 17.3 % (11.5-14.5); WHITE BLOOD COUNT 5.2 X10'3 (4.5-11.0)
[2020-11-19 11:00] VITALS: BP 126/70
--- NOTE | 2020-11-19 15:38 | NUR ---
PAGER ID: [phone] 352 John Jean Can I give her Dilaudid 1 hour early. Lour[place] [phone]
[2020-11-19] MEDS ORDERED: potassium Cl 40MEQ/1/2NS 520ml 520 ML IV PRN (16:15)
[2020-11-19] MEDS ORDERED: magnesium 4gm in 100ml NS 100 ML IV PRN (16:15)
[2020-11-19] MEDS ORDERED: potassium Cl 20 mEq SR tablet PO PRN ×2 (16:15)
--- NOTE | 2020-11-19 18:17 | NUR ---
Problems reprioritized. Patient report given, questions answered & plan of care reviewed with Concha SHERMAN.
--- NOTE | 2020-11-19 18:21 | NUR ---
Patient in room ALYSSA 352. I have received report from ALICE SHERMAN and had the opportunity to ask questions and assume patient care. Addendum: 11/19/20 at 1821 by Concha Pereyra RN Amended: Links added.
[2020-11-19 19:00] VITALS: BP 147/71
[2020-11-19] MEDS: LORazepam 0.5 MG tablet PO PRN (19:00)
--- NOTE | 2020-11-19 19:00 | NUR ---
pt medicated by supercharge repair supervisor for pain with po norco and tolerated well. pt upset as ileostomy bag has come off and leaked again for the third time today. pt requesting after cleaning her up and dolly a towel to it to please wait 30 minutes before coming in to replace the bag.
[2020-11-19] MEDS: HYDROcodone/acetaminophen 10/325mg tab PO PRN (19:01)
--- NOTE | 2020-11-19 19:40 | NUR ---
pt called and was standing naked in the room with wash cloth to ileostomy site and crying frustrated. said she wanted to shower set her up with warm water and instructed not to get neck wet. after shower done and bed made pt back in bed where skin prep was done and colostomy powder used with prep wipe. new ileostomy bag applied and then [place] dressing to abd incision which is clean and dry. then dressing done to her back and cream for her ring worm areas applied to them. pt now calmer less tearful appears depressed by all of this and anxious due to all that has happened and problems she's had with the [facility] and then [facility] who kept looking at the problem and discharging her home till she finally got them to send her here then to rehab and back here again for a small bowel obstruction.
[2020-11-19] MEDS: insulin glargine (Lantus) pen - multi-dose SQ SCH (21:00)
[2020-11-19] MEDS: magnesium Cl slow-release 64mg tablet PO PRN (21:11)
[2020-11-19] MEDS: temazepam 15mg capsule PO PRN (21:12)
--- NOTE | 2020-11-19 21:15 | NUR ---
pt medicated for pain and took hs meds tolerated well. positioned to comfort in bed.
--- NOTE | 2020-11-19 23:05 | NUR ---
pt resting eyes closed without changes at this time.
[2020-11-19 23:08] VITALS: BP 120/58
--- NOTE | 2020-11-20 02:05 | NUR ---
awoke c/o pain abd and medicated with iv diladid for this.
[2020-11-20] MEDS: HYDROmorphone inj. 0.5 MG/0.5 ML DISP.SYRIN IV PRN ×3 (02:07→13:48)
[2020-11-20] MEDS: normal saline 1000ml 1,000 ML IV SCH (02:41)
--- NOTE | 2020-11-20 04:30 | NUR ---
pt labs drawn resting eyes closed no s&S of distress.
[2020-11-20 04:50] LABS: BASOPHILS % (AUTO) 0.5 % (0-1); EOSINOPHILS # (AUTO) 0.1 X10'3 (0-0.9); EOSINOPHILS % (AUTO) 2.6 % (0-6); HEMATOCRIT 22.5 % (35.0-45.0); HEMOGLOBIN 7.6 g/dl (12.0-16.0); LYMPHOCYTES # (AUTO) 1.2 X10'3 (1.1-4.8); LYMPHOCYTES % (AUTO) 23.7 % (21-51); MEAN CORPUSCULAR HEMOGLOBIN 31.3 PG (27.0-31.0); MEAN CORPUSCULAR HGB CONC 33.9 g/dL (33.0-36.5); MEAN CORPUSCULAR VOLUME 92.2 FL (78-98); MEAN PLATELET VOLUME 5.7 FL (7.4-10.4); MONOCYTES # (AUTO) 0.4 X10'3 (0-0.9); MONOCYTES % (AUTO) 7.5 % (2-12); NEUTROPHILS # (AUTO) 3.2 X10'3 (1.8-7.7); NEUTROPHILS % (AUTO) 65.7 % (42-75); PLATELET COUNT 238 X10'3 (140-440); RED BLOOD COUNT 2.44 X10'6 (4.20-5.60); WHITE BLOOD COUNT 4.9 X10'3 (4.5-11.0)
[2020-11-20 05:02] LABS: ALBUMIN/GLOBULIN RATIO 0.5 (1.1-1.5); ALKALINE PHOSPHATASE 77 IU/L (46-116); ANION GAP 11 (8-16); ASPARTATE AMINO TRANSFERASE 11 U/L (10-37); BILIRUBIN,TOTAL 0.2 MG/DL (0.1-1.0); BLOOD UREA NITROGEN 8 MG/DL (7-18); BUN/CREATININE RATIO 6.7 (6.6-38.0); CALCIUM 7.8 MG/DL (8.5-10.1); CHLORIDE 111 MMOL/L (99-107); GLUCOSE 103 MG/DL (70-104); MAGNESIUM 1.2 MG/DL (1.5-2.4); POTASSIUM 3.9 MMOL/L (3.5-5.1); SODIUM 141 MMOL/L (135-145); TOTAL CARBON DIOXIDE 18.9 MMOL/L (24-32); TOTAL PROTEIN 6.1 G/DL (6.4-8.2); eGFR 46 ML/MIN
[2020-11-20 05:22] LABS: ALANINE AMINOTRANSFERASE 6 U/L (12-78)
--- NOTE | 2020-11-20 06:03 | NUR ---
Problems reprioritized. Patient report given, questions answered & plan of care reviewed with JAS SHERMAN. Addendum: 11/20/20 at 0604 by Concha Pereyra RN Amended: Links added.
[2020-11-20] MEDS: Dakins solution (1/4 strength) 473ml solution TP SCH (07:59)
[2020-11-20] MEDS: clotrimazole topical cream 15gm tube TP SCH (07:59)
[2020-11-20 08:00] VITALS: BP 138/72
[2020-11-20] MEDS: K and/or MAG REPLACEMENT MC SCH ×2 (08:00)
[2020-11-20] MEDS: lactobacillus rhamnosus 10,000 MMU CELLS/CAPSULE PO SCH (08:00)
[2020-11-20] MEDS: heparin, porcine 5000 units/ml vial SQ SCH (08:00)
[2020-11-20] MEDS: magnesium Cl slow-release 64mg tablet PO PRN (08:10)
[2020-11-20] MEDS ORDERED: LEVO500T89 PO (10:02)
[2020-11-20 11:00] VITALS: BP 133/69
[2020-11-20] MEDS ORDERED: levoFLOXACIN 500mg tablet PO SCH (11:00)
[2020-11-21] MEDS ORDERED: VANCOMYCIN LEVEL IV ONE (19:30)
== END 2020-11-20 14:41 | disposition home health service (06) | DRG 383 ==
LOC: ER 10:27 → OBSVTOIN 16:54 → ED HOLD 16:54 → SUR 3N 20:00
PROVIDERS: ADMIT Internal Medicine; ATTEND Internal Medicine
PROC: 0JB70ZZ Excision of Back Subcutaneous Tissue and Fascia, Open Approach (ICD-10-PCS; principal; 2020-11-16 16:42)
DX: L02.212 Cutaneous abscess of back [any part, except buttock and flank] (principal); N17.9 Acute kidney failure, unspecified; E11.22 Type 2 diabetes mellitus with diabetic chronic kidney disease; L98.422 Non-pressure chronic ulcer of back with fat layer exposed; K50.913 Crohn's disease, unspecified, with fistula; D62 Acute posthemorrhagic anemia; L08.9 Local infection of the skin and subcutaneous tissue, unspecified; Z20.822 Contact with and (suspected) exposure to COVID-19; N18.9 Chronic kidney disease, unspecified; F17.210 Nicotine dependence, cigarettes, uncomplicated; Z82.49 Family history of ischemic heart disease and other diseases of the circulatory system; Z93.2 Ileostomy status; Z90.710 Acquired absence of both cervix and uterus; Z71.6 Tobacco abuse counseling
CPT/HCPCS: 36415; 71045; 74176; 80053; 80202; 81001; 82948; 83036; 83605; 83690; 83735; 84132; 84145; 85007; 85008; 85025; 86703; 87040; 87077; 87081; 87186; 87635; 93306; 94760; 96361; 96374; 96375; 97116; 97161; 97530; 97535; 99285; A4618; A6449; C9113; G0378; J0744; J1170; J1644; J1815; J1956; J2001; J2250; J2270; J2405; J2704; J3010; J3370; J3490; J7030; J7050